=== PATIENT | female | born 1960 | race Caucasian/White ===

== ENCOUNTER → 2016-06-17 | Outpatient (CLI) | payer MEDICAID ==
--- NOTE | 2016-06-17 09:51 | CR ---
EXAMINATION: Left shoulder HISTORY: Pain COMPARISON: 05/14/2013 TECHNIQUE: 3 views FINDINGS/IMPRESSION: There is no acute osseous abnormality, dislocation, or fracture. Bone mineraliz ation appears normal. Mild acromioclavicular osteoarthritic changes are noted.
== END ==
LOC: MW.CHORTHO 07:50
PROVIDERS: ATTEND Orthopaedic Surgery
DX: M25.512 Pain in left shoulder (principal); M19.012 Primary osteoarthritis, left shoulder
CPT/HCPCS: 73030-26-LT; 73030-LT

== ENCOUNTER 2016-06-28 12:26 | Emergency (ER) | payer MEDICAID ==
--- NOTE | 2016-06-28 12:52 | EDM.PDOC ---
ED HPI GENERAL MEDICAL PROBLEM - General Chief Complaint: General Stated Complaint: CRAMPS ALL OVER HER BODY Time Seen by Provider: 06/28/16 12:42 Source of Information: Reports: Patient History Limitations: Reports: No limitations - History of Present Illness INITIAL COMMENTS - FREE TEXT/NARRATIVE: HISTORY AND PHYSICAL: [56-year-old female presenting with 2 days of muscle cramps all over her body except her face History of Present Illness: [at least 2 days of muscle cramping history of hypokalemia] ] Review of Systems: As per history of present illness and below otherwise all systems reviewed and negative. Past medical history: As per history of present illness and as reviewed below otherwise noncontributory. Surgical history: As per history of present illness and as reviewed below otherwise noncontributory. Social history: No reported history of drug or alcohol abuse. Family history: As per history of present illness and as reviewed below otherwise noncontributory. Physical exam:alert & oriented HEENT: Atraumatic, normocehpalic, pupils reactive, negative for conjunctival pallor or scleral icterus, mucous membranes moist, throat clear, neck supple, nontender, trachea midline. Tympanic membranes WNL. Lungs: Clear to auscultation, breath sounds equal bilaterally, chest non tender. Heart: S1S2, regular, negative for clicks, rubs, or JVD. Abdomen: Soft, nondistended, nontender. Negative for masses or hepatossplenmegaly. Negative for costovertebral tenderness. Pelvis: Stable nontender. Genitourinary: Deferred. Rectal: Deferred Extremities: Atraumatic, negative for cords or calf pain. Neurovascular unremarkable. Neuro: Awake, alert, oriented. Cranial nerves II through XII unremarkable. Cerebellum unremarkable. Motor and sensory unremarkable throughout. Exam nonfocal. Diagnostics: [CBC CMP Magnesium all within normal limits] Therapeutics: [Diazepam] Impression: [Muscle Cramps] Plan: [Flexeril 10 mg up to 3 times a day when necessary muscle cramps Followup with primary care provider] Definitive disposition and diagnosis as appropriate pending reevaluation and review of above. Duration: Day(s):, Getting worse Location: Reports: generalized Quality: Reports: Ache Severity: moderate Improves with: Reports: None Worsens with: Reports: Movement Associated Symptoms: Reports: no other symptoms body Pain Score (Numeric/FACES): 6 - Related Data Allergies Allergy/AdvReac Type Severity Reaction Status Date / Time morphine Allergy Hives Verified 06/28/16 12:35 Home Meds: Home Meds amLODIPine Besylate/Benazepril [Lotrel 5-40 MG] 1 tab PO DAILY 05/10/15 [History ] Estazolam 1 mg PO BEDTIME PRN 01/28/16 [History] Fluticasone Propionate 50 mcg SILKE DAILY 01/28/16 [History] Lurasidone HCl [Latuda] 1 tab PO DAILY 01/28/16 [History] Metoprolol Succinate [Toprol XL] 25 mg PO DAILY 01/28/16 [History] PARoxetine HCl [Paroxetine HCl] 1 tab PO BID 01/28/16 [History] Pantoprazole [Protonix] 40 mg PO ACBREAKFAST 01/28/16 [History] Rivaroxaban [Xarelto] 20 mg PO BEDTIME 01/28/16 [History] hydrOXYzine Pamoate [Hydroxyzine Pamoate] 1 tab PO DAILY PRN 01/28/16 [History] traZODone 100 mg PO BEDTIME PRN 01/28/16 [History] Cyclobenzaprine [Flexeril] 10 mg PO TID #30 tablet 06/28/16 [Rx] Past Medical History HEENT History: Reports: None Cardiovascular History: Reports: Afib, Hypertension, Other (see below) Other Cardiovascular History: Left aorta enlargement Psychiatric History: Reports: Depression - Infectious Disease History Infectious Disease History: Reports: MRSA - Past Surgical History HEENT Surgical History: Reports: None GI Surgical History: Reports: Bariatric procedure Musculoskeletal Surgical History: Reports: Hip replacement Other Musculoskeletal Surgeries/Procedures:: hip replacement x4 Social & Family History - Family History Family Medical History: Noncontributory Cardiac: Reports: Heart failure, High cholesterol, Hypertension, [place] Musculoskeletal: Reports: Arthritis, Osteoarthritis Endocrine/Metabolic: Reports: Diabetes, type II - Tobacco Use Smoking Status *Q: Former Smoker Years of Tobacco use: 10 Used Tobacco, but Quit: Yes Month Tobacco Last Used: 2000 Second Hand Smoke Exposure: No - Caffeine Use Caffeine Use: Reports: None - Alcohol Use Days Per Week of Alcohol Use: 0 - Recreational Drug Use Recreational Drug Use: No ED ROS GENERAL - Review of Systems Review Of Systems: ROS reveals no pertinent complaints other than HPI. ED EXAM, GENERAL - Physical Exam Exam: See Below (see dictation) Course - Vital Signs Last Recorded V/S: Last Vital Signs Temp 36.1 C 06/28/16 12:43 Pulse 72 06/28/16 12:43 Resp 16 06/28/16 12:43 BP 165/87 H 06/28/16 12:43 Pulse Ox 99 06/28/16 12:43 - Orders/Labs/Meds Orders: Active Orders 24 hr Category Date Time Status Sodium Chloride 0.9% [Saline Flush] Med 06/28/16 13:03 Active 10 ml FLUSH ASDIRECTED PRN Sodium Chloride 0.9% [Saline Flush] Med 06/28/16 13:03 Active 2.5 ml FLUSH ASDIRECTED PRN Saline Lock Insert [OM.PC] Stat Oth 06/28/16 13:03 Ordered Medication Orders Sodium Chloride (Saline Flush) 10 ml FLUSH ASDIRECTED PRN PRN Reason: Keep Vein Open Sodium Chloride (Saline Flush) 2.5 ml FLUSH ASDIRECTED PRN PRN Reason: Keep Vein Open Labs: Laboratory Tests 06/28/16 06/28/16 Range/Units 13:18 13:18 WBC 6.05 (4.0-11.0) K/uL RBC 4.63 (4.30-5.90) M/uL Hgb 14.3 (12.0-16.0) g/dL Hct 43.6 (36.0-46.0) % MCV 94.2 (80.0-98.0) fL MCH 30.9 (27.0-32.0) pg MCHC 32.8 (31.0-37.0) g/dL RDW Std Deviation 50.5 (28.0-62.0) fl RDW Coeff of Ravi 15 (11.0-15.0) % Plt Count 267 (150-400) K/uL MPV 9.80 (7.40-12.00) fL Neut % (Auto) 59.6 (48.0-80.0) % Lymph % (Auto) 26.8 (16.0-40.0) % Parke % (Auto) 12.1 (0.0-15.0) % Eos % (Auto) 1.2 (0.0-7.0) % Baso % (Auto) 0.3 (0.0-1.5) % Neut # 3.6 (1.4-5.7) K/uL Lymph # 1.6 (0.6-2.4) K/uL Parke # 0.7 (0.0-0.8) K/uL Eos # 0.1 (0.0-0.7) K/uL Baso # 0.0 (0.0-0.1) K/uL Nucleated RBC % 0.0 /100WBC Nucleated RBCs # 0 K/uL Sodium 138 (136-146) mmol/L Potassium 4.4 (3.5-5.1) mmol/L Chloride 104 (98-110) mmol/L Carbon Dioxide 20 L (21-31) mmol/L BUN 18 (6.0-23.0) mg/dL Creatinine 1.0 (0.6-1.5) mg/dL Est Cr Clr Drug Dosing 61.09 mL/min Estimated GFR (MDRD) 57.4 ml/min Glucose 92 (60-110) mg/dL Calcium 9.9 (8.8-10.8) mg/dL Magnesium 1.8 (1.5-2.3) mEq/L Total Bilirubin 0.5 (0.1-1.5) mg/dL AST 26 (5-40) IU/L ALT 42 (8-54) IU/L Alkaline Phosphatase 105 (40-150) Total Protein 8.3 H (6.0-8.0) g/dL Albumin 4.9 (3.5-5.0) g/dL Globulin 3.4 (2.0-3.5) g/dL Albumin/Globulin Ratio 1.4 (1.3-2.8) Meds: Medications Generic Name Dose Route Start Last Admin Trade Name Freq PRN Reason Stop Dose Admin Sodium Chloride 10 ml 06/28/16 13:03 Saline Flush FLUSH ASDIRECTED PRN Keep Vein Open Sodium Chloride 2.5 ml 06/28/16 13:03 Saline Flush FLUSH ASDIRECTED PRN Keep Vein Open Discontinued Medications Generic Name Dose Route Start Last Admin Trade Name Freq PRN Reason Stop Dose Admin Diazepam 2 mg 06/28/16 13:03 Valium PO 06/28/16 13:04 ONETIME ONE Diazepam 5 mg 06/28/16 13:08 06/28/16 13:14 Valium. PO 06/28/16 13:09 5 mg ONETIME ONE Administration Departure - Departure Time of Disposition: 14:05 Disposition: Home, Self-Care 01 Condition: good Clinical Impression: Muscle cramps Prescriptions: Cyclobenzaprine [Flexeril] 10 mg PO TID #30 tablet Forms: ED Department Discharge - My Orders Last 24 Hours: My Active Orders 06/28/16 13:03 Sodium Chloride 0.9% [Saline Flush] 10 ml FLUSH ASDIRECTED PRN Sodium Chloride 0.9% [Saline Flush] 2.5 ml FLUSH ASDIRECTED PRN Saline Lock Insert [OM.PC] Stat - Assessment/Plan Last 24 Hours: My Active Orders 06/28/16 13:03 Sodium Chloride 0.9% [Saline Flush] 10 ml FLUSH ASDIRECTED PRN Sodium Chloride 0.9% [Saline Flush] 2.5 ml FLUSH ASDIRECTED PRN Saline Lock Insert [OM.PC] Stat
[2016-06-28] MEDS ORDERED: Sodium Chloride 0.9% 10 ML Syringe FLUSH PRN (13:03)
[2016-06-28] MEDS ORDERED: Diazepam 2 MG Tab PO ONE (13:03)
[2016-06-28] MEDS ORDERED: Sodium Chloride 0.9% 2.5 ML Syringe FLUSH PRN (13:03)
[2016-06-28] MEDS ORDERED: Diazepam 5 MG Tab PO ONE (13:08)
[2016-06-28 14:16] VITALS: BP 157/89
== END 2016-06-28 14:14 | disposition home or self-care (01) ==
LOC: MW.ED 12:26
DX: R25.2 Cramp and spasm (principal); I48.91 Unspecified atrial fibrillation; I10 Essential (primary) hypertension; F32.9 Major depressive disorder, single episode, unspecified; Z79.899 Other long term (current) drug therapy; Z98.84 Bariatric surgery status; Z88.5 Allergy status to narcotic agent; Z87.891 Personal history of nicotine dependence
CPT/HCPCS: 36415; 80053; 83735; 85025; 99283; A9270

== ENCOUNTER 2016-08-14 11:18 | Emergency (ER) | payer MEDICAID ==
[2016-08-14] MEDS ORDERED: Nitroglycerin 0.4 MG Tab.SL SL PRN (11:26)
[2016-08-14] MEDS ORDERED: Aspirin 81 MG Tab.Chew PO ONE ×2 (11:26→11:27)
[2016-08-14] MEDS ORDERED: Sodium Chloride 0.9% 2.5 ML Syringe FLUSH PRN (11:27)
[2016-08-14] MEDS ORDERED: Sodium Chloride 0.9% 1,000 ML IV ONE (11:27)
[2016-08-14] MEDS ORDERED: Sodium Chloride 0.9% 10 ML Syringe FLUSH PRN (11:27)
[2016-08-14] MEDS ORDERED: Famotidine 20 MG/2 ML SDV IVPUSH ONE (11:27)
--- NOTE | 2016-08-14 11:34 | EDM.PDOC ---
ED HISTORY OF PRESENT ILLNESS - General Chief Complaint: Cardiovascular Problem Stated Complaint: CHEST PAIN Time Seen by Provider: 08/14/16 11:30 Source of Information: Reports: Patient, Old records History Limitations: Reports: No limitations - History of Present Illness INITIAL COMMENTS - FREE TEXT/NARRATIVE: HISTORY AND PHYSICAL: [56-year-old female presenting with left-sided chest pain starting around the breast area extending up towards her neck] History of Present Illness: [Pain started about midnight last night when she was sitting at the table drinking water. She thought it was heartburn. She did take her medications this morning] Patient does see Dr. Ann Review of Systems: As per history of present illness and below otherwise all systems reviewed and negative. Past medical history: As per history of present illness and as reviewed below otherwise noncontributory. Surgical history: As per history of present illness and as reviewed below otherwise noncontributory. Social history: No reported history of drug or alcohol abuse. Family history: As per history of present illness and as reviewed below otherwise noncontributory. Physical exam: Alert woman who is quite anxious breathing rapidly but is able to be redirected and slow her breathing. HEENT: Atraumatic, normocehpalic, pupils reactive, negative for conjunctival pallor or scleral icterus, mucous membranes moist, throat clear, neck supple, nontender, trachea midline. Lungs: Clear to auscultation, breath sounds equal bilaterally, chest non tender. Heart: S1S2, regular, negative for clicks, rubs, or JVD. EKG with normal sinus rhythm 85 beats per minute. Chest pain is reducible with palpation to the left breast area costochondral.Pain extends to left neck. Abdomen: Soft, nondistended, nontender. Negative for masses or hepatossplenmegaly. Negative for costovertebral tenderness.Bowel sounds auscultated Pelvis: Stable nontender. Genitourinary: Deferred. Rectal: Deferred Extremities: Atraumatic, negative for cords or calf pain. No pedal edema. Palpable pulse. Neurovascular unremarkable. Neuro: Awake, alert, oriented. Very anxious/ mild hyperventilation with tingling of fingertips. Cranial nerves II through XII unremarkable. Cerebellum unremarkable. Motor and sensory unremarkable throughout. Exam nonfocal. Discussed case with Dr. Souza local slasher machine operator who is in agreement that this is extremely low risk for CAD. He did recommend patient could be sent home he would followup with her on Wednesday, August 17. Diagnostics: [CBC CMP EKG chest x-ray,troponin] Therapeutics: [Aspirin 324mg, Pepcid IV, Dilaudid 0.5/lorazepam 0.5 by mouth] Impression: [Chest wall pain\ Anxiety] Plan: [Discharge to home have discussed observation with the patient and she is comfortable at this point going home. We'll have her call for an appointment to followup with Dr. Souza] Definitive disposition and diagnosis as appropriate pending reevaluation and review of above. Timing/Duration: Reports: Hour(s): Severity: severe (11/26) - Related Data Allergies/ADRs: Allergies Allergy/AdvReac Type Severity Reaction Status Date / Time morphine Allergy Hives Verified 06/28/16 12:35 Home Meds: Home Meds amLODIPine Besylate/Benazepril [Lotrel 5-40 MG] 1 tab PO DAILY 05/10/15 [History ] Estazolam 1 mg PO BEDTIME PRN 01/28/16 [History] Fluticasone Propionate 50 mcg SILKE DAILY 01/28/16 [History] Lurasidone HCl [Latuda] 1 tab PO DAILY 01/28/16 [History] Metoprolol Succinate [Toprol XL] 25 mg PO DAILY 01/28/16 [History] PARoxetine HCl [Paroxetine HCl] 1 tab PO BID 01/28/16 [History] Pantoprazole [ProTONIX] 40 mg PO ACBREAKFAST 01/28/16 [History] Rivaroxaban [Xarelto] 20 mg PO BEDTIME 01/28/16 [History] hydrOXYzine Pamoate [Hydroxyzine Pamoate] 1 tab PO DAILY PRN 01/28/16 [History] traZODone 100 mg PO BEDTIME PRN 01/28/16 [History] Cyclobenzaprine [Flexeril] 10 mg PO TID #30 tablet 06/28/16 [Rx] Past Medical History HEENT History: Reports: None Cardiovascular History: Reports: Afib, Hypertension, Other (see below) Other Cardiovascular History: Left aorta enlargement Psychiatric History: Reports: Depression - Infectious Disease History Infectious Disease History: Reports: MRSA - Past Surgical History HEENT Surgical History: Reports: None GI Surgical History: Reports: Bariatric procedure Musculoskeletal Surgical History: Reports: Hip replacement Other Musculoskeletal Surgeries/Procedures:: hip replacement x4 Social & Family History - Family History Family Medical History: Noncontributory Cardiac: Reports: Heart failure, High cholesterol, Hypertension, [place] Musculoskeletal: Reports: Arthritis, Osteoarthritis Endocrine/Metabolic: Reports: Diabetes, type II - Tobacco Use Smoking Status *Q: Former Smoker Years of Tobacco use: 10 Used Tobacco, but Quit: Yes Month Tobacco Last Used: 2000 Second Hand Smoke Exposure: No - Caffeine Use Caffeine Use: Reports: None - Alcohol Use Days Per Week of Alcohol Use: 0 - Recreational Drug Use Recreational Drug Use: No ED ROS GENERAL - Review of Systems Review Of Systems: ROS reveals no pertinent complaints other than HPI. ED EXAM, GENERAL - Physical Exam Exam: See Below (See dictation) EKG INTERPRETATION EKG Date: 08/14/16 Rhythm: NSR Rate (beats/min): 85 Gore: normal P-wave: present Course - Vital Signs Last Recorded V/S: Last Vital Signs Temp 36.4 C 08/14/16 11:37 Pulse 79 08/14/16 11:37 Resp 18 08/14/16 11:37 BP 125/83 08/14/16 11:46 Pulse Ox 100 08/14/16 11:37 - Orders/Labs/Meds Orders: Active Orders 24 hr Category Date Time Status Cardiac Monitoring [RC] . DIRECTED Care 08/14/16 11:26 Active Cardiac Monitoring [RC] . DIRECTED Care 08/14/16 11:27 Active EKG Documentation Completion [RC] STAT Care 08/14/16 11:26 Active EKG Documentation Completion [RC] STAT Care 08/14/16 11:27 Inactive Oxygen Therapy, ED [RC] ASDIRECTED Care 08/14/16 11:26 Active Pulse Oximetry [RC] ASDIRECTED Care 08/14/16 11:27 Active Chest 1V Frontal [CR] Stat Exams 08/14/16 11:27 Taken TROPONIN I [CHEM] Stat Lab 08/14/16 11:27 Ordered UA W/MICROSCOPIC [URIN] Stat Lab 08/14/16 11:27 Uncollected Sodium Chloride 0.9% [Saline Flush] Med 08/14/16 11:27 Active 10 ml FLUSH ASDIRECTED PRN Sodium Chloride 0.9% [Saline Flush] Med 08/14/16 11:27 Active 2.5 ml FLUSH ASDIRECTED PRN Peripheral IV Insertion Adult [OM.PC] Stat [facility] 08/14/16 11:27 Ordered Saline Lock Insert [OM.PC] Stat [facility] 08/14/16 11:26 Ordered Saline Lock Insert [OM.PC] Stat [facility] 08/14/16 11:27 Ordered Medication Orders Sodium Chloride (Saline Flush) 10 ml FLUSH ASDIRECTED PRN PRN Reason: Keep Vein Open Sodium Chloride (Saline Flush) 2.5 ml FLUSH ASDIRECTED PRN PRN Reason: Keep Vein Open Labs: Laboratory Tests 08/14/16 08/14/16 08/14/16 Range/Units 11:37 11:37 11:37 WBC 5.47 (4.0-11.0) K/uL RBC 4.19 L (4.30-5.90) M/uL Hgb 13.1 (12.0-16.0) g/dL Hct 39.2 (36.0-46.0) % MCV 93.6 (80.0-98.0) fL MCH 31.3 (27.0-32.0) pg MCHC 33.4 (31.0-37.0) g/dL RDW Std Deviation 50.3 (28.0-62.0) fl RDW Coeff of Ravi 15 (11.0-15.0) % Plt Count 266 (150-400) K/uL MPV 10.00 (7.40-12.00) fL Neut % (Auto) 50.3 (48.0-80.0) % Lymph % (Auto) 38.2 (16.0-40.0) % Ida % (Auto) 9.7 (0.0-15.0) % Eos % (Auto) 1.3 (0.0-7.0) % Baso % (Auto) 0.5 (0.0-1.5) % Neut # (Auto) 2.8 (1.4-5.7) K/uL Lymph # (Auto) 2.1 (0.6-2.4) K/uL Ida # (Auto) 0.5 (0.0-0.8) K/uL Eos # (Auto) 0.1 (0.0-0.7) K/uL Baso # (Auto) 0.0 (0.0-0.1) K/uL Nucleated RBC % 0.0 /100WBC Nucleated RBCs # 0 K/uL INR 1.17 H (0.86-1.11) Sodium 140 (136-146) mmol/L Potassium 4.1 (3.5-5.1) mmol/L Chloride 109 (98-110) mmol/L Carbon Dioxide 18 L (21-31) mmol/L BUN 14 (6.0-23.0) mg/dL Creatinine 1.0 (0.6-1.5) mg/dL Est Cr Clr Drug Dosing TNP Estimated GFR (MDRD) 57.4 ml/min Glucose 104 (60-110) mg/dL Calcium 9.8 (8.8-10.8) mg/dL Total Bilirubin 0.5 (0.1-1.5) mg/dL AST 17 (5-40) IU/L ALT 21 (8-54) IU/L Alkaline Phosphatase 74 (40-150) Troponin I (0.0-0.29) NG/ML Total Protein 6.8 (6.0-8.0) g/dL Albumin 4.3 (3.5-5.0) g/dL Globulin 2.5 (2.0-3.5) g/dL Albumin/Globulin Ratio 1.7 (1.3-2.8) Amylase 75 (10-90) U/L Lipase 21 (7-80) U/L 08/14/16 Range/Units 11:37 WBC (4.0-11.0) K/uL RBC (4.30-5.90) M/uL Hgb (12.0-16.0) g/dL Hct (36.0-46.0) % MCV (80.0-98.0) fL MCH (27.0-32.0) pg MCHC (31.0-37.0) g/dL RDW Std Deviation (28.0-62.0) fl RDW Coeff of Ravi (11.0-15.0) % Plt Count (150-400) K/uL MPV (7.40-12.00) fL Neut % (Auto) (48.0-80.0) % Lymph % (Auto) (16.0-40.0) % Ida % (Auto) (0.0-15.0) % Eos % (Auto) (0.0-7.0) % Baso % (Auto) (0.0-1.5) % Neut # (Auto) (1.4-5.7) K/uL Lymph # (Auto) (0.6-2.4) K/uL Ida # (Auto) (0.0-0.8) K/uL Eos # (Auto) (0.0-0.7) K/uL Baso # (Auto) (0.0-0.1) K/uL Nucleated RBC % /100WBC Nucleated RBCs # K/uL INR (0.86-1.11) Sodium (136-146) mmol/L Potassium (3.5-5.1) mmol/L Chloride (98-110) mmol/L Carbon Dioxide (21-31) mmol/L BUN (6.0-23.0) mg/dL Creatinine (0.6-1.5) mg/dL Est Cr Clr Drug Dosing Estimated GFR (MDRD) ml/min Glucose (60-110) mg/dL Calcium (8.8-10.8) mg/dL Total Bilirubin (0.1-1.5) mg/dL AST (5-40) IU/L ALT (8-54) IU/L Alkaline Phosphatase (40-150) Troponin I < 0.10 (0.0-0.29) NG/ML Total Protein (6.0-8.0) g/dL Albumin (3.5-5.0) g/dL Globulin (2.0-3.5) g/dL Albumin/Globulin Ratio (1.3-2.8) Amylase (10-90) U/L Lipase (7-80) U/L Meds: Medications Generic Name Dose Route Start Last Admin Trade Name Freq PRN Reason Stop Dose Admin Sodium Chloride 10 ml 08/14/16 11:27 Saline Flush FLUSH ASDIRECTED PRN Keep Vein Open Sodium Chloride 2.5 ml 08/14/16 11:27 Saline Flush FLUSH ASDIRECTED PRN Keep Vein Open Discontinued Medications Generic Name Dose Route Start Last Admin Trade Name Freq PRN Reason Stop Dose Admin Aspirin 324 mg 08/14/16 11:26 08/14/16 11:30 Aspirin PO 08/14/16 11:27 324 mg ONETIME ONE Administration Aspirin 324 mg 08/14/16 11:27 08/14/16 11:53 Aspirin PO 08/14/16 11:28 Not Given ONETIME ONE Famotidine 20 mg 08/14/16 11:27 08/14/16 11:47 Pepcid IVPUSH 08/14/16 11:28 20 mg ONETIME ONE Administration Hydromorphone HCl 0.5 mg 08/14/16 11:52 08/14/16 11:56 Dilaudid IM 08/14/16 11:53 0.5 mg ONETIME ONE Administration Sodium Chloride 1,000 mls @ 999 mls/hr 08/14/16 11:27 08/14/16 11:53 Normal Saline IV 08/14/16 12:27 999 mls/hr .Bolus ONE Administration Lorazepam 0.5 mg 08/14/16 12:16 Ativan PO 08/14/16 12:17 ONETIME ONE Nitroglycerin 0.4 mg 08/14/16 11:26 08/14/16 11:46 Nitrostat SL 08/14/16 11:37 0.4 mg Q5M PRN Administration Chest Pain Departure - Departure Time of Disposition: 12:40 Disposition: Home, Self-Care 01 Condition: good Clinical Impression: Chest wall pain, In, Anxiety Forms: ED Department Discharge Additional Instructions: The following information is given to patients seen in the emergency department who are being discharged to home. This information is to outline your options for follow-up care. We provide all patients seen in our emergency department with a follow-up referral. The need for follow-up, as well as the timing and circumstances, are variable depending upon the specifics of your emergency department visit. If you don't have a primary care physician on staff, we will provide you with a referral. We always advise you to contact your personal physician following an emergency department visit to inform them of the circumstance of the visit and for follow-up with them and/or the need for any referrals to a consulting specialist. The emergency department will also refer you to a specialist when appropriate. This referral assures that you have the opportunity for followup care with a specialist. All of these measure are taken in an effort to provide you with optimal care, which includes your followup. Under all circumstances we always encourage you to contact your private physician who remains a resource for coordinating your care. When calling for followup care, please make the office aware that this follow-up is from your recent emergency room visit. If for any reason you are refused follow-up, please contact the [facility] emergency department at and asked to speak to the emergency department charge nurse. Followup with Dr. Ann. please call for appointment Wednesday August 17, 2016 - My Orders Last 24 Hours: My Active Orders 08/14/16 11:26 Cardiac Monitoring [RC] . DIRECTED EKG Documentation Completion [RC] STAT Oxygen Therapy, ED [RC] ASDIRECTED Saline Lock Insert [OM.PC] Stat 08/14/16 11:27 Cardiac Monitoring [RC] . DIRECTED EKG Documentation Completion [RC] STAT Pulse Oximetry [RC] ASDIRECTED Chest 1V Frontal [CR] Stat TROPONIN I [CHEM] Stat UA W/MICROSCOPIC [URIN] Stat Sodium Chloride 0.9% [Saline Flush] 10 ml FLUSH ASDIRECTED PRN Sodium Chloride 0.9% [Saline Flush] 2.5 ml FLUSH ASDIRECTED PRN Peripheral IV Insertion Adult [OM.PC] Stat Saline Lock Insert [OM.PC] Stat - Assessment/Plan Last 24 Hours: My Active Orders 08/14/16 11:26 Cardiac Monitoring [RC] . DIRECTED EKG Documentation Completion [RC] STAT Oxygen Therapy, ED [RC] ASDIRECTED Saline Lock Insert [OM.PC] Stat 08/14/16 11:27 Cardiac Monitoring [RC] . DIRECTED EKG Documentation Completion [RC] STAT Pulse Oximetry [RC] ASDIRECTED Chest 1V Frontal [CR] Stat TROPONIN I [CHEM] Stat UA W/MICROSCOPIC [URIN] Stat Sodium Chloride 0.9% [Saline Flush] 10 ml FLUSH ASDIRECTED PRN Sodium Chloride 0.9% [Saline Flush] 2.5 ml FLUSH ASDIRECTED PRN Peripheral IV Insertion Adult [OM.PC] Stat Saline Lock Insert [OM.PC] Stat
[2016-08-14] MEDS ORDERED: HYDROmorphone 1 MG/ML Syringe IM ONE (11:52)
[2016-08-14 12:13] LABS: CHLORIDE,CL 109 mmol/L (98-110); SODIUM,NA 140 mmol/L (136-146)
[2016-08-14] MEDS ORDERED: LORazepam 0.5 MG Tab PO ONE (12:16)
[2016-08-14] MEDS ORDERED: Acetaminophen 325 MG Tab PO ONE (12:51)
[2016-08-14] MEDS ORDERED: Alum Hydrox/Mag Hydrox/Simeth 15 ML, Lidocaine 2% 5 ML PO ONE ×2 (12:57)
[2016-08-14 13:46] VITALS: BP 105/76
--- NOTE | 2016-08-16 16:47 | CR ---
EXAM DATE: 08/14/16 PATIENT'S AGE: 56 Patient: CARLOS SELF Facility: [place], [place] Site . Site : [id number] Study: XRay Chest [id number]/[id number] 12:30:19 PM Ordering Physician: Doctor Burger Final Report: INDICATION: CHEST PAIN CHEST, ONE VIEW An AP radiograph of the chest was performed. Comparison: No previous studies are currently available for comparison. The lungs appear clear and no pleural effusions are identified. The cardiomediastinal silhouette and pulmonary vasculature appear normal, as do the visualized bones. There is a suggestion of a very small retrocardiac hiatal hernia. IMPRESSION: No acute intrathoracic abnormality identified. MARK ARCEO MD [facility] Dictated by: Maikel Arceo MD @ 08/14/2016 12:47:06 (Electronic Signature) Report Signed by Proxy. MTDD
== END 2016-08-14 13:43 | disposition home or self-care (01) ==
LOC: MW.ED 11:18
DX: R07.9 Chest pain, unspecified (principal); F41.9 Anxiety disorder, unspecified; I48.91 Unspecified atrial fibrillation; I10 Essential (primary) hypertension; Z79.899 Other long term (current) drug therapy; Z87.891 Personal history of nicotine dependence
CPT/HCPCS: 36415; 71010; 80053; 81001; 82150; 83690; 84484; 85025; 85610; 93005; 96361; 96372; 96374; 99285; A9270; J1170; J7040

== ENCOUNTER 2016-08-27 12:43 | Emergency (ER) | payer MEDICAID ==
[2016-08-27] MEDS ORDERED: diphenhydrAMINE 25 MG Cap PO ONE (13:12)
--- NOTE | 2016-08-27 13:13 | EDM.PDOC ---
ED HPI GENERAL MEDICAL PROBLEM - General Chief Complaint: ENT Problem Stated Complaint: SWOLLEN FACE/GLANDS Time Seen by Provider: 08/27/16 12:49 Source of Information: Reports: Patient History Limitations: Reports: No Limitations - History of Present Illness INITIAL COMMENTS - FREE TEXT/NARRATIVE: History of present illness: [] Patient comes in with 3 day history of pain and swelling on the right side of her face. She presented to urgent care 3 days ago with right facial and ear pain. He was diagnosed with an ear infection and has been getting IM antibiotic shots daily for 3 days. She has never had any fevers, redness, difficulty swallowing or shortness of breath. Patient is taking several psych medications including Cymbalta, trazodone and latuda. Review of systems: As per history of present illness and below otherwise all systems reviewed and negative. Past medical history: As per history of present illness and as reviewed below otherwise noncontributory. Surgical history: As per history of present illness and as reviewed below otherwise noncontributory. Social history: No reported history of drug or alcohol abuse. Family history: As per history of present illness and as reviewed below otherwise noncontributory. Physical exam: General: Well developed, well nourished in NAD HEENT: Atraumatic, patient clenches her right side of her jaw shut, pupils reactive, negative for conjunctival pallor or scleral icterus, mucous membranes moist, throat clear, neck supple, nontender, trachea midline. No palpable lymph nodes noted, TMs are clear there is no erythema, purulent drainage behind the TM , and the TM is intact. She is able to open her jaw and move it side to side there does not appear to be any dislocation. Lungs: Clear to auscultation, breath sounds equal bilaterally, chest nontender. Heart: S1S2, regular, negative for clicks, rubs, or JVD. Abdomen: Soft, nondistended, nontender. Negative for masses or hepatosplenomegaly. Negative for costovertebral tenderness. Pelvis: Stable nontender. Genitourinary: Deferred. Rectal: Deferred. Extremities: Atraumatic, negative for cords or calf pain. Neurovascular unremarkable. Neuro: Awake, alert, oriented. Cranial nerves II through XII unremarkable. Cerebellum unremarkable. Motor and sensory unremarkable throughout. Exam nonfocal. Diagnostics: [] Do not see any sign of infection or need to CT her face and sinuses. Therapeutics: [] Patient was given a dose of Benadryl with improvement Impression: [] I believe this is likely a dystonic reaction although mild. She may have had an ear or sinus infection 3 days ago but at this point I do not see any signs of this. She has been aggressively treated and may have responded well. Plan: [] Benadryl every 4 hours as needed. followup with your primary care doctor and or the physician treating you with antibiotics Definitive disposition and diagnosis as appropriate pending reevaluation and review of above. Right Face Pain Score (Numeric/FACES): 8 - Related Data Allergies Allergy/AdvReac Type Severity Reaction Status Date / Time morphine Allergy Hives Verified 08/27/16 12:56 Home Meds: Home Meds Estazolam 2 mg PO BEDTIME PRN 01/28/16 [History] Lurasidone HCl [Latuda] 80 mg PO DAILY 01/28/16 [History] Metoprolol Succinate [Toprol XL] 12.5 mg PO DAILY 01/28/16 [History] Pantoprazole [ProTONIX] 40 mg PO ACBREAKFAST 01/28/16 [History] Rivaroxaban [Xarelto] 20 mg PO BEDTIME 01/28/16 [History] hydrOXYzine Pamoate [Hydroxyzine Pamoate] 25 mg PO DAILY PRN 01/28/16 [History] traZODone 100 mg PO BEDTIME PRN 01/28/16 [History] DULoxetine [Cymbalta] 60 mg PO DAILY 08/14/16 [History] Hydrocodone/Acetaminophen [Hydrocodon-Acetaminophen 5-325] 1 tab PO Q4H PRN [History] LORazepam 0.5 mg PO DAILY PRN 08/14/16 [History] amLODIPine Besylate/Benazepril [Amlodipine-Benazepril 2.5-10] 1 tab PO DAILY [History] Past Medical History HEENT History: Reports: None Cardiovascular History: Reports: Afib, Hypertension Other Cardiovascular History: Left aorta enlargement Psychiatric History: Reports: Depression - Infectious Disease History Infectious Disease History: Reports: Chicken pox, Mumps - Past Surgical History HEENT Surgical History: Reports: None GI Surgical History: Reports: Bariatric procedure Musculoskeletal Surgical History: Reports: Hip replacement Other Musculoskeletal Surgeries/Procedures:: hip replacement, right x 3 and left x 1 Social & Family History - Family History Family Medical History: Noncontributory Cardiac: Reports: Heart failure, High cholesterol, Hypertension, [place] Musculoskeletal: Reports: Arthritis, Osteoarthritis Endocrine/Metabolic: Reports: Diabetes, type II - Tobacco Use Smoking Status *Q: Never Smoker Years of Tobacco use: 10 Used Tobacco, but Quit: Yes Month Tobacco Last Used: 2000 Second Hand Smoke Exposure: No - Caffeine Use Caffeine Use: Reports: Coffee Caffeine Use Comment: 2cups/day - Alcohol Use Days Per Week of Alcohol Use: 0 - Recreational Drug Use Recreational Drug Use: No ED ROS ENT - Review of Systems Review Of Systems: See Below (See history of present illness) ED EXAM, ENT - Physical Exam Exam: See Below (See history of present illness) Course - Vital Signs Last Recorded V/S: Last Vital Signs Temp 36.4 C 08/27/16 12:51 Pulse 85 08/27/16 12:51 Resp 20 08/27/16 12:51 BP 141/66 H 08/27/16 12:51 Pulse Ox 98 08/27/16 12:51 - Orders/Labs/Meds Meds: Medications Discontinued Medications Generic Name Dose Route Start Last Admin Trade Name Freq PRN Reason Stop Dose Admin Diphenhydramine HCl 25 mg 08/27/16 13:12 08/27/16 13:17 Benadryl PO 08/27/16 13:13 25 mg ONETIME ONE Administration Departure - Departure Time of Disposition: 14:00 Disposition: Home, Self-Care 01 Condition: good Clinical Impression: Dystonic drug reaction - Discharge Information Forms: ED Department Discharge Additional Instructions: The following information is given to patients seen in the emergency department who are being discharged to home. This information is to outline your options for follow-up care. We provide all patients seen in our emergency department with a follow-up referral. The need for follow-up, as well as the timing and circumstances, are variable depending upon the specifics of your emergency department visit. If you don't have a primary care physician on staff, we will provide you with a referral. We always advise you to contact your personal physician following an emergency department visit to inform them of the circumstance of the visit and for follow-up with them and/or the need for any referrals to a consulting specialist. The emergency department will also refer you to a specialist when appropriate. This referral assures that you have the opportunity for follow-up care with a specialist. All of these measure are taken in an effort to provide you with optimal care, which includes your follow-up. Under all circumstances we always encourage you to contact your private physician who remains a resource for coordinating your care. When calling for follow-up care, please make the office aware that this follow-up is from your recent emergency room visit. If for any reason you are refused follow-up, please contact the [facility] Emergency Department at and asked to speak to the emergency department charge nurse. Jeffry as needed Followup with primary care [facility] [place] [id number]
[2016-08-27 14:11] VITALS: BP 112/77
== END 2016-08-27 14:08 | disposition home or self-care (01) ==
LOC: MW.ED 12:43
DX: G24.09 Other drug induced dystonia (principal); I48.91 Unspecified atrial fibrillation; I10 Essential (primary) hypertension; F32.9 Major depressive disorder, single episode, unspecified; Z88.5 Allergy status to narcotic agent; Z79.899 Other long term (current) drug therapy; Z98.84 Bariatric surgery status; Z96.643 Presence of artificial hip joint, bilateral
CPT/HCPCS: 99282; A9270

== ENCOUNTER 2016-10-05 07:39 | Emergency (ER) | payer MEDICAID ==
[2016-10-05] MEDS ORDERED: Ketorolac 60 MG/2 ML SDV IM ONE (08:02)
--- NOTE | 2016-10-05 08:07 | EDM.PDOC ---
ED HPI GENERAL MEDICAL PROBLEM - General Chief Complaint: ENT Problem Stated Complaint: JAW PAIN Time Seen by Provider: 10/05/16 07:55 - History of Present Illness INITIAL COMMENTS - FREE TEXT/NARRATIVE: HISTORY AND PHYSICAL: History of present illness: The patient is a 56-year-old female with several medical problems including A. fib for which she takes Xarelto and who follows in our clinic and presents with complains of a one-week history of pain at her right jaw area and difficulty opening her mouth secondary to the pain so that she can chew. Patient denies any trauma to the area and has not noted any swelling of her face. She does have slight ear pain on the right but does not have any sore throat fever chills cough chest pain shortness of breath. She says the pain has come on gradually and that she is having difficulty opening her mouth and feels like something is not aligned properly. She says she is not eating normally because there is discomfort with chewing and she is losing weight because of that. She has not contacted her provider in the clinic discussed these issues. She has no tooth pain tongue pain or gum swelling that she has noted. She denies any hoarse voice and has no anterior neck pain. She's not tried anything for the pain. The patient states the pain is not worse when she wakes up and she doesn't recall that she clenches her teeth when she sleeps. Review of systems: As per history of present illness and below otherwise all systems reviewed and negative. Past medical history: As per history of present illness and as reviewed below otherwise noncontributory. Surgical history: As per history of present illness and as reviewed below otherwise noncontributory. Social history: No reported history of drug or alcohol abuse. Family history: As per history of present illness and as reviewed below otherwise noncontributory. Physical exam: Gen.: Well-developed well-nourished female who speaks clearly and easily and vital signs of the note by me. There is no visible evidence of any facial swelling on the right HEENT: Atraumatic, normocephalic, negative for conjunctival pallor or scleral icterus, mucous membranes moist, throat clear, neck supple, nontender, trachea midline. There is no cervical adenopathy or nuchal rigidity. There is no bony deformities tenderness or defects of the mandible or maxilla and the TMJs bilaterally appear to be in normal alignment. The patient is able to open her mouth but does have slight trismus secondary to discomfort. Intraorally there is no evidence of any soft tissue swelling/mucosal swelling no tooth discomfort and no palpable deformities. Upon palpation of the cheek and the senior research project manager area she does have discomfort in both intraorally and externally. TMs are dulled bilaterally Lungs: Clear to auscultation, breath sounds equal bilaterally, chest nontender. Heart: S1S2, regular rate and rhythm no overt murmurs Abdomen: Soft, nondistended, nontender. NABS Genitourinary: Deferred. Rectal: Deferred. Extremities: Atraumatic, negative for cords or calf pain. Neurovascular unremarkable. Neuro: Awake, alert, oriented. Cranial nerves II through XII unremarkable. Cerebellum unremarkable. Motor and sensory unremarkable throughout. Exam nonfocal. Diagnostics: Facial bone x-rays Therapeutics: Toradol I discussed with the patient that we be severely limited in evaluating discomfort and it was likely muscular or joint etiology. We will go ahead and do x-rays to assess the bony architecture and the TMJ joint and refer her back to primary care for further evaluation. I discussed x-ray findings with the patient and I have gotten her an appointment expedited in the clinic for later today at 3:[address] Floyd as I am limited here in the ED to evaluate and treat this problem. Impression: Right jaw/TMJ pain Definitive disposition and diagnosis as appropriate pending reevaluation and review of above. Right Face Pain Score (Numeric/FACES): 8 - Related Data Allergies Allergy/AdvReac Type Severity Reaction Status Date / Time morphine Allergy Hives Verified 08/27/16 12:56 Home Meds: Home Meds Estazolam 2 mg PO BEDTIME PRN 01/28/16 [History] Lurasidone HCl [Latuda] 80 mg PO DAILY 01/28/16 [History] Metoprolol Succinate [Toprol XL] 12.5 mg PO DAILY 01/28/16 [History] Pantoprazole [ProTONIX] 40 mg PO ACBREAKFAST 01/28/16 [History] Rivaroxaban [Xarelto] 20 mg PO WITHDINNER 01/28/16 [History] hydrOXYzine Pamoate [Hydroxyzine Pamoate] 25 mg PO BID PRN 01/28/16 [History] traZODone 100 mg PO BEDTIME PRN 01/28/16 [History] DULoxetine [Cymbalta] 60 mg PO DAILY 08/14/16 [History] LORazepam 0.5 mg PO BID PRN 08/14/16 [History] amLODIPine Besylate/Benazepril [Amlodipine-Benazepril 2.5-10] 1 tab PO DAILY [History] Fluticasone Propionate [Flonase] 1 - 2 spray NASBOTH DAILY 08/27/16 [History] Past Medical History HEENT History: Reports: None Cardiovascular History: Reports: Afib, Hypertension Other Cardiovascular History: Left aorta enlargement Psychiatric History: Reports: Depression - Infectious Disease History Infectious Disease History: Reports: Chicken Pox, Mumps - Past Surgical History HEENT Surgical History: Reports: None GI Surgical History: Reports: Bariatric Procedure Musculoskeletal Surgical History: Reports: Hip Replacement Social & Family History - Family History Family Medical History: Noncontributory Cardiac: Reports: Heart Failure, High Cholesterol, Hypertension, [place] Musculoskeletal: Reports: Arthritis, Osteoarthritis Endocrine/Metabolic: Reports: Diabetes, type II - Tobacco Use Smoking Status *Q: Never Smoker Years of Tobacco use: 10 Used Tobacco, but Quit: Yes Month Tobacco Last Used: 2000 Second Hand Smoke Exposure: No - Caffeine Use Caffeine Use: Reports: Coffee Caffeine Use Comment: 2cups/day - Alcohol Use Days Per Week of Alcohol Use: 0 - Recreational Drug Use Recreational Drug Use: No ED ROS GENERAL - Review of Systems Review Of Systems: ROS reveals no pertinent complaints other than HPI. ED EXAM, GENERAL - Physical Exam Exam: See Below (See dictation) Course - Vital Signs Last Recorded V/S: Last Vital Signs Temp 36.6 C 10/05/16 07:48 Pulse 77 10/05/16 07:48 Resp 18 10/05/16 07:48 BP 132/77 10/05/16 07:48 Pulse Ox 98 10/05/16 07:48 - Orders/Labs/Meds Meds: Medications Discontinued Medications Generic Name Dose Route Start Last Admin Trade Name Freq PRN Reason Stop Dose Admin Ketorolac Tromethamine 60 mg 10/05/16 08:02 10/05/16 08:10 Toradol IM 10/05/16 08:03 60 mg ONETIME ONE Administration Departure - Departure Time of Disposition: 08:57 Disposition: Home, Self-Care 01 Condition: Good Clinical Impression: Temporomandibular joint (TMJ) pain Qualifiers: Laterality: right Qualified Code(s): M26.621 - Arthralgia of right temporomandibular joint - Discharge Information Forms: ED Department Discharge Additional Instructions: The following information is given to patients seen in the emergency department who are being discharged to home. This information is to outline your options for follow-up care. We provide all patients seen in our emergency department with a follow-up referral. The need for follow-up, as well as the timing and circumstances, are variable depending upon the specifics of your emergency department visit. If you don't have a primary care physician on staff, we will provide you with a referral. We always advise you to contact your personal physician following an emergency department visit to inform them of the circumstance of the visit and for follow-up with them and/or the need for any referrals to a consulting specialist. The emergency department will also refer you to a specialist when appropriate. This referral assures that you have the opportunity for followup care with a specialist. All of these measure are taken in an effort to provide you with optimal care, which includes your followup. Under all circumstances we always encourage you to contact your private physician who remains a resource for coordinating your care. When calling for followup care, please make the office aware that this follow-up is from your recent emergency room visit. If for any reason you are refused follow-up, please contact the [facility] emergency department at and ask to speak to the emergency department charge nurse. [facility] Primary care- Internal Medicine and Family [address] [address] Please go to the clinic to see Dr. Floyd today at 3:30 PM for further care and evaluation. Use ice to area of discomfort into your seen. Return to ER as needed as discussed
--- NOTE | 2016-10-05 08:46 | CR ---
EXAMINATION: Facial bones HISTORY: Pain COMPARISON: None TECHNIQUE: 3 views FINDINGS/IMPRESSION: There is no acute osseous abnormality, dislocation, or fracture identified. Bon e mineralization and visualized facial bones appear grossly intact. The maxillary and frontal sinuse s appear patent.
[2016-10-05 09:10] VITALS: BP 130/70
== END 2016-10-05 09:00 | disposition home or self-care (01) ==
LOC: MW.ED 07:39
DX: M26.621 Arthralgia of right temporomandibular joint (principal); I10 Essential (primary) hypertension; I48.91 Unspecified atrial fibrillation; F32.9 Major depressive disorder, single episode, unspecified; Z96.649 Presence of unspecified artificial hip joint; Z87.891 Personal history of nicotine dependence; Z98.84 Bariatric surgery status; Z79.899 Other long term (current) drug therapy; Z88.5 Allergy status to narcotic agent
CPT/HCPCS: 70150; 96372; 99283; J1885; 99284

== ENCOUNTER 2018-07-19 09:25 | Emergency (ER) | payer MEDICAID ==
--- NOTE | 2018-07-19 09:37 | EDM.PDOC ---
ED HPI GENERAL MEDICAL PROBLEM - General Chief Complaint: Respiratory Problem Stated Complaint: COUGH Time Seen by Provider: 07/19/18 09:27 Source of Information: Reports: Patient History Limitations: Reports: No Limitations - History of Present Illness INITIAL COMMENTS - FREE TEXT/NARRATIVE: History of present illness: []Patient has had a week of cough, congestion and this morning coughed and felt pain and something pop in her right ear. She denies any blood coming from her ear canal. She does not feel short of breath, nausea, vomiting or diarrhea. Review of systems: As per history of present illness and below otherwise all systems reviewed and negative. Past medical history: As per history of present illness and as reviewed below otherwise noncontributory. Surgical history: As per history of present illness and as reviewed below otherwise noncontributory. Social history: No reported history of drug or alcohol abuse. Family history: As per history of present illness and as reviewed below otherwise noncontributory. Physical exam: General: Well developed, well nourished in NAD HEENT: Atraumatic, normocephalic, pupils reactive, negative for conjunctival pallor or scleral icterus, mucous membranes moist, throat clear, neck supple, nontender, trachea midline. Right TM with 2 blebs noted, erythematous left TM normal Lungs: Clear to auscultation, breath sounds equal bilaterally, chest nontender. Heart: S1S2, regular, negative for clicks, rubs, or JVD. Abdomen: NABS, Soft, nondistended, nontender. Negative for masses or hepatosplenomegaly. Negative for costovertebral tenderness. Pelvis: Stable nontender. Genitourinary: Deferred. Rectal: Deferred. Extremities: Atraumatic, negative for cords or calf pain. Neurovascular unremarkable. Neuro: Awake, alert, oriented. Cranial nerves II through XII unremarkable. Cerebellum unremarkable. Motor and sensory unremarkable throughout. Exam nonfocal. Skin:warm and dry Diagnostics: None Therapeutics: None ED Course: Stable Impression: URI with cough, right bullous myringitis Prescriptions: Amoxicillin, Robitussin with codeine Plan: Take meds as directed, follow up with your primary care physician, return to ER if symptoms worsen or change. Definitive disposition and diagnosis as appropriate pending reevaluation and review of above. throat and pain when coughing Pain Score (Numeric/FACES): 6 - Related Data Allergies Allergy/AdvReac Type Severity Reaction Status Date / Time morphine Allergy Hives Verified 07/19/18 09:33 Home Meds: Home Meds Estazolam 2 mg PO BEDTIME PRN 01/28/16 [History] Lurasidone HCl [Latuda] 80 mg PO DAILY 01/28/16 [History] Metoprolol Succinate [Toprol XL] 12.5 mg PO DAILY 01/28/16 [History] Pantoprazole [ProTONIX] 40 mg PO ACBREAKFAST 01/28/16 [History] Rivaroxaban [Xarelto] 20 mg PO WITHDINNER 01/28/16 [History] hydrOXYzine pamoate [Hydroxyzine Pamoate] 25 mg PO BID PRN 01/28/16 [History] traZODone 100 mg PO BEDTIME PRN 01/28/16 [History] DULoxetine [Cymbalta] 60 mg PO DAILY 08/14/16 [History] LORazepam 0.5 mg PO BID PRN 08/14/16 [History] amLODIPine Besylate/Benazepril [Amlodipine-Benazepril 2.5-10] 1 tab PO DAILY [History] Fluticasone Propionate [Flonase] 1 - 2 spray NASBOTH DAILY 08/27/16 [History] Amoxicillin 875 mg PO BID 10 Days #20 tab 07/19/18 [Rx] Codeine/guaiFENesin [Robitussin AC] 5 ml PO Q6H #50 ml 07/19/18 [Rx] Past Medical History HEENT History: Reports: None Cardiovascular History: Reports: Afib, Hypertension Other Cardiovascular History: Left aorta enlargement Psychiatric History: Reports: Depression - Infectious Disease History Infectious Disease History: Reports: Chicken Pox, Mumps - Past Surgical History HEENT Surgical History: Reports: None GI Surgical History: Reports: Bariatric Procedure Musculoskeletal Surgical History: Reports: Hip Replacement Social & Family History - Family History Family Medical History: Noncontributory Cardiac: Reports: Heart Failure, High Cholesterol, Hypertension, [place] Musculoskeletal: Reports: Arthritis, Osteoarthritis Endocrine/Metabolic: Reports: Diabetes, type II - Caffeine Use Caffeine Use: Reports: Coffee Caffeine Use Comment: 2cups/day ED ROS GENERAL - Review of Systems Review Of Systems: ROS reveals no pertinent complaints other than HPI. ED EXAM, GENERAL - Physical Exam Exam: See Below (See history of present illness) Course - Vital Signs Last Recorded V/S: Last Vital Signs Temp 97.3 F 07/19/18 09:34 Pulse 80 07/19/18 09:34 Resp 18 07/19/18 09:34 BP 143/76 H 07/19/18 09:34 Pulse Ox 98 07/19/18 09:34 Departure - Departure Time of Disposition: 09:44 Disposition: Home, Self-Care 01 Condition: Good Clinical Impression: Bullous myringitis of right ear, URI with cough and congestion - Discharge Information *PRESCRIPTION DRUG MONITORING PROGRAM REVIEWED*: No *COPY OF PRESCRIPTION DRUG MONITORING REPORT IN PATIENT DEYANIRA: No Prescriptions: Amoxicillin 875 mg PO BID 10 Days #20 tab Codeine/guaiFENesin [Robitussin AC] 5 ml PO Q6H #50 ml Referrals: PCP,Unknown [Primary Care Provider] - Forms: ED Department Discharge Additional Instructions: The following information is given to patients seen in the emergency department who are being discharged to home. This information is to outline your options for follow-up care. We provide all patients seen in our emergency department with a follow-up referral. The need for follow-up, as well as the timing and circumstances, are variable depending upon the specifics of your emergency department visit. If you don't have a primary care physician on staff, we will provide you with a referral. We always advise you to contact your personal physician following an emergency department visit to inform them of the circumstance of the visit and for follow-up with them and/or the need for any referrals to a consulting specialist. The emergency department will also refer you to a specialist when appropriate. This referral assures that you have the opportunity for follow-up care with a specialist. All of these measure are taken in an effort to provide you with optimal care, which includes your follow-up. Under all circumstances we always encourage you to contact your private physician who remains a resource for coordinating your care. When calling for follow-up care, please make the office aware that this follow-up is from your recent emergency room visit. If for any reason you are refused follow-up, please contact the [facility] Emergency Department at and asked to speak to the emergency department charge nurse. Take meds as directed, follow up with your primary care physician, return to ER if symptoms worsen or change. [facility] [address] [place] [phone]
[2018-07-19 10:21] VITALS: BP 138/73
== END 2018-07-19 10:18 | disposition home or self-care (01) ==
LOC: MW.ED 09:25
DX: J06.9 Acute upper respiratory infection, unspecified (principal); H73.011 Bullous myringitis, right ear; I10 Essential (primary) hypertension; I48.91 Unspecified atrial fibrillation; F32.9 Major depressive disorder, single episode, unspecified; Z79.899 Other long term (current) drug therapy; Z88.5 Allergy status to narcotic agent
CPT/HCPCS: 99283

== ENCOUNTER 2019-09-28 09:25 | Emergency (ER) | payer MEDICAID ==
[2019-09-28] MEDS ORDERED: fentaNYL 50 MCG/ML SDV IVPUSH ONE ×2 (10:00→11:32)
--- NOTE | 2019-09-28 10:12 | EDM.PDOC ---
ED HPI GENERAL MEDICAL PROBLEM - General Chief Complaint: Lower Extremity Injury/Pain Stated Complaint: POSSIBLE BLOOD CLOT Time Seen by Provider: 09/28/19 09:30 Source of Information: Reports: Patient History Limitations: Reports: No Limitations - History of Present Illness INITIAL COMMENTS - FREE TEXT/NARRATIVE: 59-year-old female with history of atrial fibrillation, left hip replacement, left lower extremity DVT, HTN presents with atraumatic left ANTERIOR leg pain for worsening 2 weeks. Pain is described as a dull ache, constant, mild, and is exacerbated by hip flexion. She says the pain radiates from her left groin to her left anterior tib/fib. She denies trauma, fever, chills, chest pain, shortness breath, abdominal pain. She is currently taking Xarelto. She has not taken any medications for this symptom for 2 weeks. ROS: A 10-point review of systems, other than pertinent positives and negatives as stated per HPI, is otherwise negative PHYSICAL EXAM General: AOx4, GCS = 15, No distress HEENT: dry mucous membrane Neck: supple, no meningismus, no Kernig or Brudzinski Cardiac: S1S2 RRR Respiratory: CTAB, no crackles or rales, no wheezing Abdomen: Soft, nontender, no rebound or guarding, nondistended, no pulsatile mass. Back: nontender Musculoskeletal: NVI distally, no deformity, DP +2 bilaterally. Mild tenderness to left posterior thigh, no tenderness to the calf, thigh/calf anterior and posterior compartments are soft. No pain with ankle range of motion. Reproducible pain at the left groin with hip flexion. Neuro: No focal deficits. MEDICAL DECISION MAKING: I reviewed the patients past medical records, lab and radiographic findings. I discussed the case with family members. My differential diagnosis included: Muscle strain, neuropathy, low suspicion for DVT, low suspicion for compartment syndrome. Patient pain is maximal in the left hip region, she describes the pain radiates to the anterior thigh. left leg Pain Score (Numeric/FACES): 9 - Related Data Allergies Allergy/AdvReac Type Severity Reaction Status Date / Time morphine Allergy Hives Verified 09/28/19 09:42 Home Meds: Home Meds Estazolam 2 mg PO BEDTIME PRN 01/28/16 [History] Metoprolol Succinate [Toprol XL] 12.5 mg PO DAILY 01/28/16 [History] Pantoprazole [ProTONIX] 40 mg PO ACBREAKFAST 01/28/16 [History] Rivaroxaban [Xarelto] 20 mg PO WITHDINNER 01/28/16 [History] hydrOXYzine pamoate [Hydroxyzine Pamoate] 25 mg PO BID PRN 01/28/16 [History] traZODone 100 mg PO BEDTIME PRN 01/28/16 [History] DULoxetine [Cymbalta] 60 mg PO DAILY 08/14/16 [History] LORazepam 0.5 mg PO BID PRN 08/14/16 [History] amLODIPine Besylate/Benazepril [Amlodipine-Benazepril 2.5-10] 1 tab PO DAILY [History] Fluticasone Propionate [Flonase] 1 - 2 spray NASBOTH DAILY 08/27/16 [History] Albuterol [Ventolin HFA] 2 puff INH Q4HR PRN #1 inhaler 07/19/18 [Rx] Past Medical History HEENT History: Reports: None Cardiovascular History: Reports: Afib, Hypertension Other Cardiovascular History: Left aorta enlargement Respiratory History: Reports: None Gastrointestinal History: Reports: None Genitourinary History: Reports: None 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 Musculoskeletal History: Reports: None Neurological History: Reports: None Psychiatric History: Reports: Depression Endocrine/Metabolic History: Reports: None Hematologic History: Reports: None Immunologic History: Reports: None Oncologic (Cancer) History: Reports: None Dermatologic History: Reports: None - Infectious Disease History Infectious Disease History: Reports: None - Past Surgical History Head Surgeries/Procedures: Reports: None HEENT Surgical History: Reports: None Respiratory Surgical History: Reports: None GI Surgical History: Reports: Bariatric Procedure Female Surgical History: Reports: None Endocrine Surgical History: Reports: None Neurological Surgical History: Reports: None Musculoskeletal Surgical History: Reports: Hip Replacement Oncologic Surgical History: Reports: None Dermatological Surgical History: Reports: None Social & Family History - Family History Family Medical History: Noncontributory Cardiac: Reports: Heart Failure, High Cholesterol, Hypertension, [place] Musculoskeletal: Reports: Arthritis, Osteoarthritis Endocrine/Metabolic: Reports: Diabetes, type II - Tobacco Use Smoking Status *Q: Never Smoker Second Hand Smoke Exposure: No - Caffeine Use Caffeine Use: Reports: Coffee Caffeine Use Comment: 2cups/day - Recreational Drug Use Recreational Drug Use: No Review of Systems - Review of Systems Review Of Systems: See Below (see dictation) ED EXAM, GENERAL - Physical Exam Exam: See Below (see dictation) Course - Vital Signs Last Recorded V/S: Last Vital Signs Temp 96.1 F L 09/28/19 09:40 Pulse 67 09/28/19 09:40 Resp 16 09/28/19 09:40 BP 146/83 H 09/28/19 09:40 Pulse Ox 95 09/28/19 09:40 - Orders/Labs/Meds Labs: Laboratory Tests 09/28/19 09/28/19 09/28/19 Range/Units 09:56 09:56 09:56 WBC 4.31 (4.0-11.0) K/uL RBC 3.69 L (4.30-5.90) M/uL Hgb 10.7 L (12.0-16.0) g/dL Hct 34.2 L (36.0-46.0) % MCV 92.7 (80.0-98.0) fL MCH 29.0 (27.0-32.0) pg MCHC 31.3 (31.0-37.0) g/dL RDW Std Deviation 50.4 (28.0-62.0) fl RDW Coeff of Ravi 15 (11.0-15.0) % Plt Count 248 (150-400) K/uL MPV 9.70 (7.40-12.00) fL Neut % (Auto) 55.7 (48.0-80.0) % Lymph % (Auto) 31.8 (16.0-40.0) % [place] % (Auto) 9.5 (0.0-15.0) % Eos % (Auto) 2.3 (0.0-7.0) % Baso % (Auto) 0.7 (0.0-1.5) % Neut # (Auto) 2.4 (1.4-5.7) K/uL Lymph # (Auto) 1.4 (0.6-2.4) K/uL [place] # (Auto) 0.4 (0.0-0.8) K/uL Eos # (Auto) 0.1 (0.0-0.7) K/uL Baso # (Auto) 0.0 (0.0-0.1) K/uL Nucleated RBC % 0.0 /100WBC Nucleated RBCs # 0 K/uL INR 1.23 Sodium 140 (136-145) mmol/L Potassium 4.4 (3.5-5.1) mmol/L Chloride 106 (98-107) mmol/L Carbon Dioxide 24.1 (21.0-32.0) mmol/L BUN 22 H (7.0-18.0) mg/dL Creatinine 1.1 H (0.6-1.0) mg/dL Est Cr Clr Drug Dosing 53.55 mL/min Estimated GFR (MDRD) 50.8 ml/min Glucose 92 (74-106) mg/dL Calcium 8.8 (8.5-10.1) mg/dL Total Bilirubin 0.3 (0.2-1.0) mg/dL AST 22 (15-37) IU/L ALT 26 (14-63) IU/L Alkaline Phosphatase 108 (46-116) U/L Total Protein 6.7 (6.4-8.2) g/dL Albumin 4.0 (3.4-5.0) g/dL Globulin 2.7 (2.6-4.0) g/dL Albumin/Globulin Ratio 1.5 (0.9-1.6) Meds: Medications Discontinued Medications Generic Name Dose Route Start Last Admin Trade Name Freq PRN Reason Stop Dose Admin Fentanyl 25 mcg 09/28/19 10:00 09/28/19 10:08 Fentanyl IVPUSH 09/28/19 10:01 25 mcg ONETIME ONE Administration Fentanyl 25 mcg 09/28/19 11:32 09/28/19 11:43 Fentanyl IVPUSH 09/28/19 11:33 25 mcg ONETIME ONE Administration - Re-Assessments/Exams Free Text/Narrative Re-Assessment/Exam: 09/28/19 11:49 After treatments and a prolonged observation period in the ER, the patient improved clinically and is stable for discharge. I performed a repeat examination and the patient has not demonstrated any new abnormal findings. Patient exhibits normal vital signs. I advised the patient to return to the ER for reevaluation if symptoms worsened, and to follow up with the clinic within 2 -3 days. Departure - Departure Time of Disposition: 11:53 Disposition: Home, Self-Care 01 Condition: Good Clinical Impression: Quadriceps strain - Discharge Information *PRESCRIPTION DRUG MONITORING PROGRAM REVIEWED*: Not Applicable *COPY OF PRESCRIPTION DRUG MONITORING REPORT IN PATIENT DEYANIRA: Not Applicable Instructions: Quadriceps Strain, How to Use Cold Therapy, [id number] Referrals: Perez Woo [Ordering Only Provider] - 1 Week Forms: ED Department Discharge Additional Instructions: The following information is given to patients seen in the emergency department who are being discharged to home. This information is to outline your options for follow-up care. We provide all patients seen in our emergency department with a follow-up referral. The need for follow-up, as well as the timing and circumstances, are variable depending upon the specifics of your emergency department visit. If you don't have a primary care physician on staff, we will provide you with a referral. We always advise you to contact your personal physician following an emergency department visit to inform them of the circumstance of the visit and for follow-up with them and/or the need for any referrals to a consulting specialist. The emergency department will also refer you to a specialist when appropriate. This referral assures that you have the opportunity for follow-up care with a specialist. All of these measure are taken in an effort to provide you with optimal care, which includes your follow-up. Under all circumstances we always encourage you to contact your private physician who remains a resource for coordinating your care. When calling for follow-up care, please make the office aware that this follow-up is from your recent emergency room visit. If for any reason you are refused follow-up, please contact the [facility] Emergency Department at and asked to speak to the emergency department charge nurse. If you do not have a primary care doctor, please follow up with the clinics below within 3-5 days. Br[facility] - Primary Care [address] [place] [id number] [facility] [address] [place] [address] Rehab Services Rehabilitation Services at [facility] (Physical Therapy, Occupational Therapy, Speech Therapy) Professional Building [address] [place] [address], [address] [place] [address] . Sepsis Event Note (ED) - Evaluation Sepsis Screening Result: No Definite Risk - Focused Exam Vital Signs: Vital Signs Temp Pulse Resp BP Pulse Ox 09/28/19 09:40 96.1 F L 67 16 146/83 H 95
[2019-09-28 10:29] LABS: CARBON DIOXIDE,CO2 24.1 mmol/L (21.0-32.0); POTASSIUM,K 4.4 mmol/L (3.5-5.1)
--- NOTE | 2019-09-28 10:49 | US ---
Left lower extremity deep venous ultrasound: Duplex and color Doppler evaluation was obtained of the left common femoral, superficial femoral, popliteal, posterior tibial and peroneal veins. Comparison: No prior venous imaging. Findings: Normal compression and Doppler blood flow is seen. Impression: 1. No evidence of deep venous thrombosis within the left lower extremity. Diagnostic code #1 This report was dictated in MDT
--- NOTE | 2019-09-28 11:42 | CR ---
Left hip: AP and frog leg lateral views left hip were obtained. Comparison: Prior AP pelvis study of 01/14/14. Findings: Left hip prosthesis is seen. Components are aligned. No underlying fracture or other bony abnormality is seen. Impression: 1. Stable appearing left hip prosthesis. 2. Nothing acute is seen on 2 view left hip exam. Diagnostic code #2 This report was dictated in MDT
[2019-09-28 13:15] VITALS: BP 118/73; PULSE 53
== END 2019-09-28 12:20 | disposition home or self-care (01) ==
LOC: MW.ED 09:25
DX: S76.112A Strain of left quadriceps muscle, fascia and tendon, initial encounter (principal); I48.91 Unspecified atrial fibrillation; I10 Essential (primary) hypertension; Z88.5 Allergy status to narcotic agent; Z79.899 Other long term (current) drug therapy; Z79.01 Long term (current) use of anticoagulants; X58.XXXA Exposure to other specified factors, initial encounter
CPT/HCPCS: 36415; 73502; 80053; 85025; 85610; 93971; 96374; 96376; 99283; J3010

== ENCOUNTER 2020-04-04 11:46 | Emergency (ER) | payer MEDICAID ==
[2020-04-04] MEDS ORDERED: Sodium Chloride 0.9% 2.5 ML Syringe FLUSH PRN (11:59)
[2020-04-04] MEDS ORDERED: Sodium Chloride 0.9% 10 ML Syringe FLUSH PRN (11:59)
[2020-04-04] MEDS ORDERED: Ondansetron 4 MG/2 ML SDV IVPUSH ONE (12:01)
[2020-04-04] MEDS ORDERED: Acetaminophen 500 MG Tab PO ONE (12:09)
[2020-04-04 12:44] LABS: CARBON DIOXIDE,CO2 24.5 mmol/L (21.0-32.0); POTASSIUM,K 3.4 mmol/L (3.5-5.1)
[2020-04-04] MEDS ORDERED: Sodium Chloride 0.9% 1,000 ML IV ONE (13:19)
--- NOTE | 2020-04-04 13:20 | EDM.PDOC ---
ED HPI GENERAL MEDICAL PROBLEM - General Chief Complaint: Neurological Problem Stated Complaint: VERTIGO Time Seen by Provider: 04/04/20 11:52 - History of Present Illness INITIAL COMMENTS - FREE TEXT/NARRATIVE: History of present illness: [] The patient was having her usual day including going to work. At work she developed a sudden onset of a headache in the frontal area that was sharp and stabbing. There is rapidly associated with ataxia and dizziness with true rotational vertigo and the feeling like she would pass out. She has blurry vision since this happened. She is almost felt like she paths would pass out had to sit down twice since I am. Nauseated. She has been feeling normal before this. She has a history of atrial fibrillation and is on Xarelto. Review of systems: As per history of present illness and below otherwise all systems reviewed and negative. Past medical history: As per history of present illness and as reviewed below otherwise noncontributory. Surgical history: As per history of present illness and as reviewed below otherwise noncontributory. Social history: No reported history of drug or alcohol abuse. Family history: As per history of present illness and as reviewed below otherwise noncontributory. Physical exam: Constitutional - well developed, well-nourished and in no acute distress HEENT - normocephalic, no evidence of trauma - external nose and mouth normal - no mass in neck and no JVD - mucosae moist EYES - full EOM, PERRL, no icterus - no evidence of inflammation, injection, or drainage visual muhammad intact by 1 punctation. Respiratory - no respiratory distress, equal bilateral expansion, lungs clear to auscultation and no abnormal lung sounds Cardiovascular - Regular Rhythm with S1 and S2 appreciated and no murmur, gallop or rub. GI - abdomen soft without distension or organomegaly - normal bowel sounds - no guard or rebound Musculoskeletal no gross deformity of long bones or joints - no tenderness, swelling or edema Neurologic -I General customary neurologic exam is normal fast exam is negative. Alert and oriented times four - CN II-XII grossly intact - motor sensory and coordination symmetrically normal Psychiatric - appropriate mood and affect with normal thought content Hematologic - No petechiae or purpura - mucosa appropriate color and sclera not pale - normal nail bed color and refill Integument - no rash or evidence of trauma - normal turgor Diagnostics: [] Therapeutics: [] Impression: Torrential diagnosis includes subarachnoid hemorrhage. [] Plan: [] Definitive disposition and diagnosis as appropriate pending reevaluation and review of above. Headache Pain Score (Numeric/FACES): 6 - Related Data Allergies Allergy/AdvReac Type Severity Reaction Status Date / Time morphine Allergy Hives Verified 04/04/20 11:49 Home Meds: Home Meds Estazolam 2 mg PO BEDTIME PRN 01/28/16 [History] Metoprolol Succinate [Toprol XL] 12.5 mg PO DAILY 01/28/16 [History] Pantoprazole [ProTONIX] 40 mg PO ACBREAKFAST 01/28/16 [History] Rivaroxaban [Xarelto] 20 mg PO WITHDINNER 01/28/16 [History] hydrOXYzine pamoate [Hydroxyzine Pamoate] 25 mg PO BID PRN 01/28/16 [History] traZODone 100 mg PO BEDTIME PRN 01/28/16 [History] DULoxetine [Cymbalta] 60 mg PO DAILY 08/14/16 [History] LORazepam 0.5 mg PO BID PRN 08/14/16 [History] amLODIPine Besylate/Benazepril [Amlodipine-Benazepril 2.5-10] 1 tab PO DAILY 08/14/16 [History] Fluticasone Propionate [Flonase] 1 - 2 spray NASBOTH DAILY 08/27/16 [History] Albuterol [Ventolin HFA] 2 puff INH Q4HR PRN #1 inhaler 07/19/18 [Rx] Acetaminophen/HYDROcodone [[place] 325-7.5 MG] 1 tab PO Q6H PRN #14 tab 04/04/20 [Rx] Amoxicillin/Clavulanate K [Augmentin 875-125 MG] 1 tab PO Q12HR #20 tab 04/04/20 [Rx] Past Medical History HEENT History: Reports: None Cardiovascular History: Reports: Afib, Hypertension Other Cardiovascular History: Left aorta enlargement Respiratory History: Reports: None Gastrointestinal History: Reports: None Genitourinary History: Reports: None 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 Musculoskeletal History: Reports: None Neurological History: Reports: None Psychiatric History: Reports: Depression Endocrine/Metabolic History: Reports: None Hematologic History: Reports: None Immunologic History: Reports: None Oncologic (Cancer) History: Reports: None Dermatologic History: Reports: None - Infectious Disease History Infectious Disease History: Reports: None - Past Surgical History Head Surgeries/Procedures: Reports: None HEENT Surgical History: Reports: None Respiratory Surgical History: Reports: None GI Surgical History: Reports: Bariatric Procedure Female Surgical History: Reports: None Endocrine Surgical History: Reports: None Neurological Surgical History: Reports: None Musculoskeletal Surgical History: Reports: Hip Replacement Other Musculoskeletal Surgeries/Procedures:: hip replacement, right x 3 and left x 1 Oncologic Surgical History: Reports: None Dermatological Surgical History: Reports: None Social & Family History - Family History Family Medical History: No Pertinent Family History Cardiac: Reports: Heart Failure, High Cholesterol, Hypertension, [place] Musculoskeletal: Reports: Arthritis, Osteoarthritis Endocrine/Metabolic: Reports: Diabetes, type II - Tobacco Use Tobacco Use Status *Q: Never Tobacco User - Caffeine Use Caffeine Use: Reports: None Caffeine Use Comment: 2cups/day ED ROS GENERAL - Review of Systems Review Of Systems: Comprehensive ROS is negative, except as noted in HPI. ED EXAM, GENERAL - Physical Exam Exam: See Below Free Text/Narrative:: My physical exam is in the HPI. #1 Interpretation EKG Interpretation Comments: EKG performed at 11:52 AM 04/04/2020 and interpreted at noon. Sinus rhythm with a heart rate of 60. [place] 189. QT 2 0. [place] -34. Nonspecific rest abnormality compatible with left ventricular hypertrophy. Compared to 08/14/2016 no change impression no acute injury Course - Vital Signs Text/Narrative:: Interpretation of the CT is that there is no acute intracranial hemorrhage. Blood pressure and BUN and creatinine measurements indicate that she is profoundly volume depleted. This may explain her symptoms. Fluids ordered. Last Recorded V/S: Last Vital Signs Temp 36.4 C 04/04/20 11:49 Pulse 58 L 04/04/20 16:00 Resp 14 04/04/20 16:00 BP 129/71 04/04/20 16:00 Pulse Ox 98 04/04/20 16:00 - Orders/Labs/Meds Orders: Active Orders 24 hr Category Date Time Status Saline Lock Insert [OM.PC] Stat Oth 04/04/20 11:59 Ordered Labs: Laboratory Tests 04/04/20 04/04/20 04/04/20 Range/Units 11:39 11:59 11:59 WBC 5.40 (4.0-11.0) K/uL RBC 3.67 L (4.30-5.90) M/uL Hgb 11.0 L (12.0-16.0) g/dL Hct 34.1 L (36.0-46.0) % MCV 92.9 (80.0-98.0) fL MCH 30.0 (27.0-32.0) pg MCHC 32.3 (31.0-37.0) g/dL RDW Std Deviation 48.0 (28.0-62.0) fl RDW Coeff of Ravi 14 (11.0-15.0) % Plt Count 251 (150-400) K/uL MPV 10.20 (7.40-12.00) fL Neut % (Auto) 58.0 (48.0-80.0) % Lymph % (Auto) 31.9 (16.0-40.0) % [place] % (Auto) 8.3 (0.0-15.0) % Eos % (Auto) 1.1 (0.0-7.0) % Baso % (Auto) 0.7 (0.0-1.5) % Neut # (Auto) 3.1 (1.4-5.7) K/uL Lymph # (Auto) 1.7 (0.6-2.4) K/uL [place] # (Auto) 0.5 (0.0-0.8) K/uL Eos # (Auto) 0.1 (0.0-0.7) K/uL Baso # (Auto) 0.0 (0.0-0.1) K/uL Nucleated RBC % 0.0 /100WBC Nucleated RBCs # 0 K/uL INR 1.22 Sodium 140 (136-145) mmol/L Potassium 3.4 L (3.5-5.1) mmol/L Chloride 103 (98-107) mmol/L Carbon Dioxide 24.5 (21.0-32.0) mmol/L BUN 36 H (7.0-18.0) mg/dL Creatinine 1.9 H (0.6-1.0) mg/dL Est Cr Clr Drug Dosing 29.48 mL/min Estimated GFR (MDRD) 27.0 ml/min Glucose 89 (74-106) mg/dL POC Glucose (60-110) mg/dL Calcium 8.8 (8.5-10.1) mg/dL Total Bilirubin 0.4 (0.2-1.0) mg/dL AST 18 (15-37) IU/L ALT 30 (14-63) IU/L Alkaline Phosphatase 110 (46-116) U/L Total Protein 7.1 (6.4-8.2) g/dL Albumin 4.2 (3.4-5.0) g/dL Globulin 2.9 (2.6-4.0) g/dL Albumin/Globulin Ratio 1.4 (0.9-1.6) 04/04/20 Range/Units 12:02 WBC (4.0-11.0) K/uL RBC (4.30-5.90) M/uL Hgb (12.0-16.0) g/dL Hct (36.0-46.0) % MCV (80.0-98.0) fL MCH (27.0-32.0) pg MCHC (31.0-37.0) g/dL RDW Std Deviation (28.0-62.0) fl RDW Coeff of Ravi (11.0-15.0) % Plt Count (150-400) K/uL MPV (7.40-12.00) fL Neut % (Auto) (48.0-80.0) % Lymph % (Auto) (16.0-40.0) % [place] % (Auto) (0.0-15.0) % Eos % (Auto) (0.0-7.0) % Baso % (Auto) (0.0-1.5) % Neut # (Auto) (1.4-5.7) K/uL Lymph # (Auto) (0.6-2.4) K/uL [place] # (Auto) (0.0-0.8) K/uL Eos # (Auto) (0.0-0.7) K/uL Baso # (Auto) (0.0-0.1) K/uL Nucleated RBC % /100WBC Nucleated RBCs # K/uL INR Sodium (136-145) mmol/L Potassium (3.5-5.1) mmol/L Chloride (98-107) mmol/L Carbon Dioxide (21.0-32.0) mmol/L BUN (7.0-18.0) mg/dL Creatinine (0.6-1.0) mg/dL Est Cr Clr Drug Dosing mL/min Estimated GFR (MDRD) ml/min Glucose (74-106) mg/dL POC Glucose 92 (60-110) mg/dL Calcium (8.5-10.1) mg/dL Total Bilirubin (0.2-1.0) mg/dL AST (15-37) IU/L ALT (14-63) IU/L Alkaline Phosphatase (46-116) U/L Total Protein (6.4-8.2) g/dL Albumin (3.4-5.0) g/dL Globulin (2.6-4.0) g/dL Albumin/Globulin Ratio (0.9-1.6) Meds: Medications Discontinued Medications Generic Name Dose Route Start Last Admin Trade Name Freq PRN Reason Stop Dose Admin Acetaminophen 1,000 mg 04/04/20 12:09 04/04/20 12:13 Tylenol Extra Strength PO 04/04/20 12:10 1,000 mg ONETIME ONE Administration Hydrocodone Bitart/Acetaminophen 1 tab 04/04/20 14:00 04/04/20 14:06 [place] 325-7.5 Mg PO 04/04/20 14:01 1 tab STAT STA Administration Amoxicillin/Clavulanate Potassium 1 tab 04/04/20 14:01 04/04/20 14:06 Augmentin 875 Mg/125 Mg PO 04/04/20 14:02 1 tab ONETIME ONE Administration Sodium Chloride 1,000 mls @ 999 mls/hr 04/04/20 13:19 04/04/20 13:34 Normal Saline IV 04/04/20 14:19 999 mls/hr .Bolus ONE Administration Ondansetron HCl 4 mg 04/04/20 12:01 04/04/20 12:08 Zofran IVPUSH 04/04/20 12:02 4 mg ONETIME ONE Administration Sodium Chloride 10 ml 04/04/20 11:59 04/04/20 12:08 Saline Flush FLUSH 10 ml ASDIRECTED PRN Administration Keep Vein Open Sodium Chloride 2.5 ml 04/04/20 11:59 04/04/20 12:08 Saline Flush FLUSH 2.5 ml ASDIRECTED PRN Administration Keep Vein Open Departure - Departure Time of Disposition: 15:30 Disposition: Home, Self-Care 01 Condition: Good Clinical Impression: Frontal sinusitis, Dehydration - Discharge Information Prescriptions: Amoxicillin/Clavulanate K [Augmentin 875-125 MG] 1 tab PO Q12HR #20 tab Acetaminophen/HYDROcodone [[place] 325-7.5 MG] 1 tab PO Q6H PRN #14 tab PRN Reason: Pain (Severe 7-10) Instructions: Sinusitis, Adult, Dehydration, Adult, [id number] Referrals: PCP,None [Primary Care Provider] - Forms: ED Department Discharge Additional Instructions: [facility] - Primary Care [address] [place] [address] [id number] [address] [facility] - Neurology Professional [facility] [address] [place] [address], [address] [place] [address] The following information is given to patients seen in the emergency department who are being discharged to home. This information is to outline your options for follow-up care. We provide all patients seen in our emergency department with a follow-up referral. The need for follow-up, as well as the timing and circumstances, are variable depending upon the specifics of your emergency department visit. If you don't have a primary care physician on staff, we will provide you with a referral. We always advise you to contact your personal physician following an emergency department visit to inform them of the circumstance of the visit and for follow-up with them and/or the need for any referrals to a consulting specialist. The emergency department will also refer you to a specialist when appropriate. This referral assures that you have the opportunity for follow-up care with a specialist. All of these measure are taken in an effort to provide you with optimal care, which includes your follow-up. Under all circumstances we always encourage you to contact your private physician who remains a resource for coordinating your care. When calling for follow-up care, please make the office aware that this follow-up is from your recent emergency room visit. If for any reason you are refused follow-up, please contact the [facility] Emergency Department at and asked to speak to the emergency department charge nurse. Sepsis Event Note (ED) - Evaluation Sepsis Screening Result: No Definite Risk - Focused Exam Vital Signs: Vital Signs Temp Pulse Resp BP Pulse Ox 04/04/20 16:00 58 L 14 129/71 98 04/04/20 14:07 62 16 115/64 97 04/04/20 13:35 56 L 16 110/66 97 04/04/20 11:49 36.4 C 71 16 112/64 97 - My Orders Last 24 Hours: My Active Orders 04/04/20 11:59 Saline Lock Insert [OM.PC] Stat - Assessment/Plan Last 24 Hours: My Active Orders 04/04/20 11:59 Saline Lock Insert [OM.PC] Stat
--- NOTE | 2020-04-04 13:35 | CT ---
INDICATION: Anticoagulated with sudden headache and blurry vision. COMPARISON: December 02, 2012 TECHNIQUE: CT examination of the head was performed as axial sections without intravenous contrast. Images were obtained from the vertex of the skull through the skull base. Please note that all CT scans at this facility use dose modulation, iterative reconstruction, and/or weight-based dosing when appropriate to reduce radiation dose to as low as reasonably achievable. FINDINGS: The brain shows no sign of mass lesion, mass effect, hemorrhage, or edema. There are involutional changes. There is moderate cortical atrophy and there is mild white matter disease. There is no hydrocephalus. Incidental chronic appearing sinus mucosal inflammatory changes. The visualized portions of the orbits are normal in appearance. The osseous structures are normal in appearance with no sign of abnormality in the skull base or calvarium. IMPRESSION: Involutional changes. No acute finding. No visible hemorrhage as questioned clinically. Please note that all CT scans at this facility use dose modulation, iterative reconstruction, and/or weight-based dosing when appropriate to reduce radiation dose to as low as reasonably achievable. Dictated by Nixon Tripathi MD @ Apr 04 2020 1:29PM Signed by Dr. Nixon Tripathi @ Apr 04 2020 1:34PM
[2020-04-04] MEDS ORDERED: Acetaminophen/HYDROcodone 325-7.5 MG Tab PO STA (14:00)
[2020-04-04] MEDS ORDERED: Amoxicillin/Clavulanate K 875-125 MG Tab PO ONE (14:01)
[2020-04-04 16:57] VITALS: BP 129/71; PULSE 58
== END 2020-04-04 16:00 | disposition home or self-care (01) ==
LOC: MW.ED 11:46
DX: J32.1 Chronic frontal sinusitis (principal); E86.0 Dehydration; I48.91 Unspecified atrial fibrillation; I10 Essential (primary) hypertension; F32.9 Major depressive disorder, single episode, unspecified; Z88.5 Allergy status to narcotic agent; Z79.899 Other long term (current) drug therapy; Z79.01 Long term (current) use of anticoagulants
CPT/HCPCS: 36415; 70450; 80053; 82962; 85025; 85610; 93005; 96374; 99284; A9270; J2405; J7030

== ENCOUNTER 2020-07-30 12:16 | Day surgery (SDC) | payer OTHER ==
[~2020-07-30 12:16] MED LIST: Lactated Ringers 1,000 ML IV SCH; Sodium Chloride 0.9% 10 ML SDV IV PRN; Sodium Chloride 0.9% 10 ML Syringe FLUSH PRN; Sodium Chloride 0.9% 2.5 ML Syringe FLUSH PRN
--- NOTE | 2020-07-30 12:55 | PCM.PREANE ---
Preanesthetic Assessment - Anesthesia/Transfusion/Family Hx Anesthesia History: Prior Anesthesia Without Reaction Family History of Anesthesia Reaction: No Transfusion History: No Prior Transfusion(s) - Review of Systems General: No Symptoms Pulmonary: No Symptoms Cardiovascular: No Symptoms Gastrointestinal: No Symptoms Neurological: No Symptoms Other: Reports: None - Physical Assessment NPO Status Date: 07/30/20 NPO Status Time: 00:05 Vital Signs: Last Vital Signs Temp 97.7 F 07/30/20 12:25 Pulse 62 07/30/20 12:25 Resp 15 07/30/20 12:25 BP 174/88 H 07/30/20 12:25 Pulse Ox 94 L 07/30/20 12:25 Height: 5 ft 7 in Weight: 210 lb ASA Class: 3 Mental Status: Alert & Oriented x3 Airway Class: Mallampati = 2 Dentition: Reports: Normal Dentition ROM/Head Extension: Limited/Partial Lungs: Clear to Auscultation, Normal Respiratory Effort Cardiovascular: Regular Rate, Regular Rhythm - Allergies Allergies/Adverse Reactions: Allergies Allergy/AdvReac Type Severity Reaction Status Date / Time morphine Allergy Itching Verified 07/24/20 15:30 - Anesthesia Plan Pre-Op Medication Ordered: None - Acknowledgements Anesthesia Type Planned: General Anesthesia Pt an Appropriate Candidate for the Planned Anesthesia: Yes Alternatives and Risks of Anesthesia Discussed w Pt/Guardian: Yes Pt/Guardian Understands and Agrees with Anesthesia Plan: Yes Additional Comments: npo hx afib on xarelto - last dose july 27 no mi, cp, chf anxiety depresion azael htn hayfever bipolar controlled obesity dvt many years ago X 1 head aches chronic pain no narcotics par no questions PreAnesthesia Questionnaire HEENT History: Reports: None Cardiovascular History: Reports: Afib, Hypertension Other Cardiovascular History: Left aorta enlargement Respiratory History: Reports: None Gastrointestinal History: Reports: None Genitourinary History: Reports: None Other Genitourinary History: stage III CKD [employer]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: Reports: None Musculoskeletal History: Reports: None Neurological History: Reports: None Psychiatric History: Reports: Depression Endocrine/Metabolic History: Reports: None Hematologic History: Reports: None Immunologic History: Reports: None Other Immunologic History: hx MRSA Oncologic (Cancer) History: Reports: None Dermatologic History: Reports: None - Infectious Disease History Infectious Disease History: Reports: None - Past Surgical History GI Surgical History: Reports: Bariatric Procedure Musculoskeletal Surgical History: Reports: Hip Replacement Other Musculoskeletal Surgeries/Procedures:: hip replacement, right x 3 and left x 1 - SUBSTANCE USE Tobacco Use Status *Q: Former Tobacco User Tobacco Use Within Last Twelve Months: No - HOME MEDS Home Medications: Home Meds Estazolam 2 mg PO BEDTIME PRN 01/28/16 [History] Metoprolol Succinate [Toprol XL] 12.5 mg PO DAILY 01/28/16 [History] Pantoprazole [ProTONIX] 40 mg PO ACBREAKFAST 01/28/16 [History] Rivaroxaban [Xarelto] 20 mg PO WITHDINNER 01/28/16 [History] hydrOXYzine pamoate [Hydroxyzine Pamoate] 1 - 2 tab PO DAILY PRN 01/28/16 [History] traZODone 1.5 - 2 tab PO BEDTIME 01/28/16 [History] LORazepam 0.5 mg PO DAILY PRN 08/14/16 [History] ARIPiprazole [Abilify] 15 mg PO DAILY 07/24/20 [History] Desvenlafaxine Succinate [Desvenlafaxine Succinate ER] 100 mg PO DAILY 07/24/20 [History] Famotidine 20 mg PO BID 07/24/20 [History] Montelukast Sodium 10 mg PO DAILY 07/24/20 [History] Torsemide 10 mg PO DAILY 07/24/20 [History] busPIRone HCl [Buspirone HCl] 30 mg PO BID 07/24/20 [History] lamoTRIgine [Lamotrigine] 150 mg PO DAILY 07/24/20 [History] valACYclovir HCl [valACYclovir] 2 tab PO ASDIRECTED PRN 07/24/20 [History] - CURRENT (IN HOUSE) MEDS Current Meds: Current Medications Lactated Ringer's (Ringers, Lactated) 1,000 mls @ 125 mls/hr IV ASDIRECTED [place] Sodium Chloride (Sodium Chloride 0.9% 10 Ml Syringe) 10 ml FLUSH ASDIRECTED PRN PRN Reason: Keep Vein Open Sodium Chloride (Sodium Chloride 0.9% 2.5 Ml Syringe) 2.5 ml FLUSH ASDIRECTED PRN PRN Reason: Keep Vein Open Sodium Chloride (Sodium Chloride 0.9% 10 Ml Syringe) 10 ml FLUSH ASDIRECTED PRN PRN Reason: Keep Vein Open Sodium Chloride (Sodium Chloride 0.9% 2.5 Ml Syringe) 2.5 ml FLUSH ASDIRECTED PRN PRN Reason: Keep Vein Open Sodium Chloride (Sodium Chloride 0.9% 10 Ml Sdv) 10 ml IV ASDIRECTED PRN PRN Reason: IV Use
[2020-07-30] MEDS ORDERED: Propofol 200 MG/20 ML SDV ONE (13:18)
[2020-07-30] MEDS ORDERED: Midazolam 1 MG/ML 2 ML SDV ONE (13:59)
[2020-07-30] MEDS ORDERED: fentaNYL 100 MCG/2 ML SDV ONE (13:59)
--- NOTE | 2020-07-30 15:29 | PCM.POSTAN ---
POST ANESTHESIA ASSESSMENT - MENTAL STATUS Mental Status: Alert, Oriented - VITAL SIGNS Vital Signs: Last Vital Signs Temp 36.5 C 07/30/20 12:25 Pulse 55 L 07/30/20 15:22 Resp 14 07/30/20 15:22 BP 106/53 L 07/30/20 15:22 Pulse Ox 95 07/30/20 15:22 - RESPIRATORY Respiratory Status: Respiratory Rate WNL, Airway Patent, O2 Saturation Stable - CARDIOVASCULAR CV Status: Pulse Rate WNL, Blood Pressure Stable - GASTROINTESTINAL GI Status: No Symptoms - PAIN Pain Score: 0 (Denies pain) - POST OP HYDRATION Hydration Status: Adequate & Stable
[2020-07-30 15:35] VITALS: BP 114/68; PULSE 61
--- NOTE | 2020-07-30 15:38 | PCM.OPNOTE ---
- General Post-Op/Procedure Note Date of Surgery/Procedure: 07/30/20 Operative Procedure(s): Screening colonoscopy Findings: rectal polyp Pre Op Diagnosis: Screening colonoscopy Post-Op Diagnosis: rectal polyp Anesthesia Technique: MAC Primary Surgeon: Ana Valentine Condition: Good Free Text/Narrative:: Intake & Output 07/30/20 07/30/20 07/30/20 06:59 14:59 22:59 Intake Total 600 Balance 600
--- NOTE | 2020-07-30 15:40 | PCM48HPAN ---
Post Anesthesia Note - EVALUATION WITHIN 48HRS OF ANESTHETIC Vital Signs in Normal Range: Yes Patient Participated in Evaluation: Yes Respiratory Function Stable: Yes Airway Patent: Yes Cardiovascular Function Stable: Yes Hydration Status Stable: Yes Pain Control Satisfactory: Yes (Denies pain) Nausea and Vomiting Control Satisfactory: Yes Mental Status Recovered: Yes Vital Signs: Last Vital Signs Temp 35.7 C L 07/30/20 15:27 Pulse 61 07/30/20 15:27 Resp 15 07/30/20 15:27 BP 114/68 07/30/20 15:27 Pulse Ox 97 07/30/20 15:27
--- NOTE | 2020-07-31 19:52 | OR ---
SURGEON: ANA VALENTINE MD DATE OF PROCEDURE: 07/30/2020 PREOPERATIVE DIAGNOSIS: Screening colonoscopy. POSTOPERATIVE DIAGNOSIS: Rectal polyp. PROCEDURE PERFORMED: Screening colonoscopy with polypectomy. PRIMARY SURGEON: Ana Valentine MD ANESTHESIA: MAC. INSTRUMENT USED: Olympus colonoscope. EXTENT OF EXAM: To the cecum. PREPARATION: Good. LIMITATIONS: None. INDICATIONS FOR EXAMINATION: The patient is a 60-year-old female who presents for a screening colonoscopy. I explained the procedure, expected perioperative course, and the risks. The patient verbalized understanding and wishes to proceed. PROCEDURE IN DETAIL: The patient was brought to the endoscopy suite and placed in the left lateral decubitus position. A time-out was completed verifying the patient's name, age, date of , allergies, and procedure to be performed. Monitored anesthesia care was induced and continuous oxygen was provided via nasal cannula throughout the procedure. After adequate sedation was achieved, a digital rectal exam was performed. This exam was within normal limits. A well-lubricated colonoscope was inserted in the rectum and advanced under direct visualization to the level of the cecum. The cecum was identified by both visual and anatomic landmarks. A photograph was taken of the cecal cap; however, I was unable to retroflex the scope within the cecum due to looping of the scope more proximally. The scope was then fully withdrawn while examining the color, texture, anatomy, and integrity of mucosa from the cecum to the anal canal. The colonic mucosa all appeared normal. The scope was then brought into the rectum and retroflexed to allow visualization of the anal canal opening. A small sessile polyp was noted upon retroflexion. This was removed in piecemeal fashion using a cold biopsy forceps and sent to Pathology, labeled as rectal polyp. The scope was then straightened out and fully withdrawn. The cecum to anus time was 11 minutes. The patient tolerated the procedure well and was transferred to the PACU in stable condition. ENDOSCOPIC DIAGNOSIS: Rectal polyp. RECOMMENDATIONS: Follow up in clinic in 2 weeks. LIZA STILES /[id number]
== END 2020-07-30 15:45 | disposition home or self-care (01) ==
LOC: MW.SDS 12:16
PROVIDERS: ATTEND Surgery
DX: D12.8 Benign neoplasm of rectum (principal); I12.9 Hypertensive chronic kidney disease with stage 1 through stage 4 chronic kidney disease, or unspecified chronic kidney disease; N18.30 Chronic kidney disease, stage 3 unspecified; D63.1 Anemia in chronic kidney disease; I48.91 Unspecified atrial fibrillation; K21.9 Gastro-esophageal reflux disease without esophagitis; E66.9 Obesity, unspecified; Z68.33 Body mass index [BMI] 33.0-33.9, adult; Z88.8 Allergy status to other drugs, medicaments and biological substances; Z79.899 Other long term (current) drug therapy; Z87.891 Personal history of nicotine dependence; Z98.890 Other specified postprocedural states
CPT/HCPCS: 45380; 88305; J2250; J2704; J3010; J7120; 00812

== ENCOUNTER 2020-08-02 19:02 | Inpatient (IN) | payer OTHER ==
[2020-08-02] MEDS ORDERED: Sodium Chloride 0.9% 2.5 ML Syringe FLUSH PRN (19:13)
[2020-08-02] MEDS ORDERED: Sodium Chloride 0.9% 1,000 ML IV ONE (19:13)
[2020-08-02] MEDS ORDERED: Sodium Chloride 0.9% 10 ML Syringe FLUSH PRN (19:13)
[2020-08-02] MEDS ORDERED: Diltiazem 100 MG in Sodium Chloride 0.9% 100 ML IV SCH (19:15)
[2020-08-02] MEDS ORDERED: Diltiazem 25 MG/5 ML SDV IVPUSH ONE (19:15)
--- NOTE | 2020-08-02 19:22 | EDM.PDOC ---
ED HPI GENERAL MEDICAL PROBLEM - General Chief Complaint: Cardiovascular Problem Stated Complaint: POSSIBLE AFIB Time Seen by Provider: 08/02/20 19:09 - History of Present Illness INITIAL COMMENTS - FREE TEXT/NARRATIVE: HISTORY AND PHYSICAL: History of present illness: This is a 6-year-old female with a history significant for atrial fibrillation, negative hypertension/diabetes/liver/lung/ID/stroke in the past who presents ER today secondary to palpitations and discomfort in her chest that started approximately 1-1 and half hours prior to arrival. Patient reports that it felt like her atrial fibrillation had kicked in again. Patient reports that she is currently on Xarelto as well as metoprolol and she has been religiously taking it for her atrial fibrillation. Patient reports that she does have a history of DVT in the distant past. Patient reports that she does have a recently diagnosed history of renal dysfunction that is currently being evaluated and worked up by her primary care physician. Patient denies any recent fevers, shakes, chills, nausea, vomiting, diarrhea, dysuria, frequency, urgency. Patient reports that she did have some shortness of breath and diaphoresis associated with it. Patient reports that she feels palpitations in her chest with some pressure sensation as well. Patient denies any pain rating down her jaw back or throat. She reports rhinorrhea but no cough or congestion. Patient has no coronavirus concerns at this time. Review of systems: As per history of present illness and below otherwise all systems reviewed and negative. Past medical history: As per history of present illness and as reviewed below otherwise noncontributory. Surgical history: As per history of present illness and as reviewed below otherwise noncontributory. Social history: No reported history of drug or alcohol abuse. Family history: As per history of present illness and as reviewed below otherwise noncontributory. Physical exam: This patient was seen and evaluated during the 2019 SARS-CoV-2 novel coronavirus pandemic period. Community viral transmission is ongoing at time of this encounter and the emergency department is operating under pandemic response procedures. Constitutional: Patient is oriented to person, place, and time. Appears well- developed and well-nourished. No distress. HEENT: Moist mucous membranes Head: Normocephalic and atraumatic Eyes: Right eye exhibits no discharge. Left eye exhibits no discharge. No scleral icterus Neck: Normal range of motion. No tracheal deviation present. Cardiovascular: Tachycardic with irregularly irregular rhythm. Pulmonary: Effort normal, no respiratory distress. Abdominal: No distention Musculoskeletal: Normal range of motion Neurologic: Alert and oriented to person, place and time. Skin: [place], skin is cool and clammy Psychiatric: Normal mood and affect. Behavior is normal. Judgment and thought content normal. Nursing note and vital signs have been reviewed Diagnostics: CBC, CMP, troponin, magnesium, phosphorus, TSH, EKG, chest x-ray EKG: As interpreted by ER physician: Nakita: Nonspecific ST-T wave abnormalities Normal axis LVH criteria by aVL greater than 11 mm. Patient with poor R wave progression in V1 through V4 consistent with possible age-indeterminate anterior septal wall infarct does not appear to be acute Versus counterclockwise rotation. No evidence of ST elevation ID Atrial fibrillation with RVR at a rate of 142 Therapeutics: Diltiazem bolus 20 mg IV Diltiazem drip at 5mg/h NSS x1 L wide open Assessment and plan: This is a 60-year-old female with history significant for atrial fibrillation who appears to have converted back into atrial fibrillation with RVR approximately 1 to 1-1/2 hours prior to arrival to the ED. At this time, patient is clinically and hemodynamically stable. Patient systolic blood pressure is 115. Definitive disposition and diagnosis as appropriate pending reevaluation and review of above. Patient will be started on a Cardizem bolus and Cardizem drip and will be reevaluated. Patient will likely need admission for rate control. Case discussed with Dr. Alvarado who agrees with plan to admit patient to ICU while patient is on the Cardizem drip. Patient will be admitted to observation level of care. Critical Care: The high probability of sudden, clinically significant deterioration in the patient's condition required the highest level of my preparedness to intervene urgently. The services I provided to this patient were to treat and/or prevent clinically significant deterioration. Services included the following: chart data review, reviewing nursing notes and/or old charts, documentation time, diet consultant collaboration regarding findings and treatment options, medication orders and management, direct patient care, vital sign assessments and ordering, interpreting and reviewing diagnostic studies/lab tests. Aggregate critical care time includes only time during which I was engaged inwork directly related to the patient's care, as described above, whether at the bedside or elsewhere in the Emergency Department. It did not include time spent performing other reported procedures or the services of residents, students, nurses or physician assistants. Critical Care Time: 35 minutes Chest Pain Score (Numeric/FACES): 4 - Related Data Allergies Allergy/AdvReac Type Severity Reaction Status Date / Time clindamycin Allergy Other Verified 08/02/20 19:45 morphine Allergy Itching Verified 08/02/20 19:10 Home Meds: Home Meds Estazolam 2 mg PO BEDTIME PRN 01/28/16 [History] Metoprolol Succinate [Toprol XL] 12.5 mg PO DAILY 01/28/16 [History] Pantoprazole [ProTONIX] 40 mg PO ACBREAKFAST 01/28/16 [History] Rivaroxaban [Xarelto] 20 mg PO WITHDINNER 01/28/16 [History] hydrOXYzine pamoate [Hydroxyzine Pamoate] 1 - 2 tab PO DAILY PRN 01/28/16 [History] traZODone 1.5 - 2 tab PO BEDTIME 01/28/16 [History] LORazepam 0.5 mg PO DAILY PRN 08/14/16 [History] ARIPiprazole [Abilify] 15 mg PO DAILY 07/24/20 [History] Desvenlafaxine Succinate [Desvenlafaxine Succinate ER] 100 mg PO DAILY 07/24/20 [History] Famotidine 20 mg PO BID 07/24/20 [History] Montelukast Sodium 10 mg PO DAILY 07/24/20 [History] Torsemide 10 mg PO DAILY 07/24/20 [History] busPIRone HCl [Buspirone HCl] 30 mg PO BID 07/24/20 [History] lamoTRIgine [Lamotrigine] 150 mg PO DAILY 07/24/20 [History] valACYclovir HCl [valACYclovir] 2 tab PO ASDIRECTED PRN 07/24/20 [History] ARIPiprazole [Abilify] 15 mg PO DAILY 08/02/20 [History] Furosemide [Lasix] 20 mg PO DAILY 08/02/20 [History] Rivaroxaban [Xarelto] 20 mg PO DAILY 08/02/20 [History] Temazepam [Restoril] 15 mg PO DAILY 08/02/20 [History] amLODIPine Besylate/Benazepril [Amlodipine-Benazepril 5-40 mg] 1 dose PO ASDIRECTED 08/02/20 [History] Past Medical History HEENT History: Reports: None Cardiovascular History: Reports: Afib, Blood Clots/VTE/DVT, Hypertension Other Cardiovascular History: hx DVT-left leg Respiratory History: Reports: None Gastrointestinal History: Reports: GERD Genitourinary History: Reports: Other (See Below) Other Genitourinary History: stage III CKD E [employer] History: Reports: None Musculoskeletal History: Reports: Arthritis, Fracture Neurological History: Reports: None Psychiatric History: Reports: Anxiety, Bipolar, Depression Endocrine/Metabolic History: Reports: Obesity/BMI 30+ Hematologic History: Reports: Anemia Immunologic History: Reports: Other (See Below) Other Immunologic History: hx MRSA Oncologic (Cancer) History: Reports: None Dermatologic History: Reports: None - Infectious Disease History Infectious Disease History: Reports: MRSA - Past Surgical History Head Surgeries/Procedures: Reports: None HEENT Surgical History: Reports: None Cardiovascular Surgical History: Reports: None Respiratory Surgical History: Reports: None GI Surgical History: Reports: Bariatric Procedure, Colonoscopy Female Surgical History: Reports: None Endocrine Surgical History: Reports: None Neurological Surgical History: Reports: None Musculoskeletal Surgical History: Reports: Hip Replacement, ORIF Other Musculoskeletal Surgeries/Procedures:: hip replacement, right x 3 and left x 1, ORIF right fx femur Oncologic Surgical History: Reports: None Dermatological Surgical History: Reports: None Social & Family History - Family History Family Medical History: No Pertinent Family History Cardiac: Reports: Heart Failure, High Cholesterol, Hypertension, ID Musculoskeletal: Reports: Arthritis, Osteoarthritis Endocrine/Metabolic: Reports: Diabetes, type II - Tobacco Use Tobacco Use Status *Q: Never Tobacco User - Caffeine Use Caffeine Use: Reports: Coffee Caffeine Use Comment: 2cups/day - Recreational Drug Use Recreational Drug Use: No ED ROS GENERAL - Review of Systems Review Of Systems: See Below ED EXAM, GENERAL - Physical Exam Exam: See Below Course - Vital Signs Last Recorded V/S: Last Vital Signs Temp 97 F 08/02/20 19:10 Pulse 75 08/02/20 19:55 Resp 18 08/02/20 19:10 BP 121/74 08/02/20 19:41 Pulse Ox 95 08/02/20 19:55 - Orders/Labs/Meds Orders: Active Orders 24 hr Category Date Time Status Patient Status [ADT] Routine ADT 08/02/20 20:34 Ordered EKG Documentation Completion [RC] AM Care 08/02/20 19:13 Active Diltiazem [Cardizem] 100 mg Med 08/02/20 19:15 Active Sodium Chloride 0.9% [Normal Saline] 100 ml IV NOW Sodium Chloride 0.9% [Saline Flush] Med 08/02/20 19:13 Active 10 ml FLUSH ASDIRECTED PRN Sodium Chloride 0.9% [Saline Flush] Med 08/02/20 19:13 Active 2.5 ml FLUSH ASDIRECTED PRN Saline Lock Insert [OM.PC] Stat Oth 08/02/20 19:13 Ordered Medication Orders Diltiazem HCl 100 mg/ Sodium (Chloride) 100 mls @ 5 mls/hr IV NOW [facility]; Protocol Last Admin: 08/02/20 19:29 Dose: 5 mg/hr, 5 mls/hr Documented by: OVIDIO Sodium Chloride (Sodium Chloride 0.9% 10 Ml Syringe) 10 ml FLUSH ASDIRECTED PRN PRN Reason: Keep Vein Open Last Admin: 08/02/20 19:18 Dose: 10 ml Documented by: LEONIDAS Sodium Chloride (Sodium Chloride 0.9% 2.5 Ml Syringe) 2.5 ml FLUSH ASDIRECTED PRN PRN Reason: Keep Vein Open Last Admin: 08/02/20 19:17 Dose: 2.5 ml Documented by: LEONIDAS Labs: Laboratory Tests 08/02/20 08/02/20 08/02/20 Range/Units 19:00 19:00 19:00 WBC 8.55 (4.0-11.0) K/uL RBC 4.50 (4.30-5.90) M/uL Hgb 13.6 (12.0-16.0) g/dL Hct 41.2 (36.0-46.0) % MCV 91.6 (80.0-98.0) fL MCH 30.2 (27.0-32.0) pg MCHC 33.0 (31.0-37.0) g/dL RDW Std Deviation 44.0 (28.0-62.0) fl RDW Coeff of Ravi 13 (11.0-15.0) % Plt Count 281 (150-400) K/uL MPV 9.70 (7.40-12.00) fL Neut % (Auto) 45.3 L (48.0-80.0) % Lymph % (Auto) 43.7 H (16.0-40.0) % [place]ock % (Auto) 8.7 (0.0-15.0) % Eos % (Auto) 1.8 (0.0-7.0) % Baso % (Auto) 0.5 (0.0-1.5) % Neut # (Auto) 3.9 (1.4-5.7) K/uL Lymph # (Auto) 3.7 H (0.6-2.4) K/uL [place]ock # (Auto) 0.7 (0.0-0.8) K/uL Eos # (Auto) 0.2 (0.0-0.7) K/uL Baso # (Auto) 0.0 (0.0-0.1) K/uL INR D-Dimer, Quantitative 0.38 (0.0-0.50) mg/L FEU Sodium 140 (136-145) mmol/L Potassium 3.9 (3.5-5.1) mmol/L Chloride 104 (98-107) mmol/L Carbon Dioxide 23.9 (21.0-32.0) mmol/L BUN 19 H (7.0-18.0) mg/dL Creatinine 1.8 H (0.6-1.0) mg/dL Est Cr Clr Drug Dosing 32.32 mL/min Estimated GFR (MDRD) 28.7 ml/min Glucose 80 (74-106) mg/dL Calcium 9.2 (8.5-10.1) mg/dL Phosphorus 4.4 (2.6-4.7) mg/dL Magnesium 2.1 (1.8-2.4) mg/dL Total Bilirubin 0.2 (0.2-1.0) mg/dL AST 21 (15-37) IU/L ALT 36 (14-63) IU/L Alkaline Phosphatase 149 H (46-116) U/L Troponin I < 0.050 (0.000-0.056) ng/mL B-Natriuretic Peptide (<100) PG/ML Total Protein 8.1 (6.4-8.2) g/dL Albumin 4.4 (3.4-5.0) g/dL Globulin 3.7 (2.6-4.0) g/dL Albumin/Globulin Ratio 1.2 (0.9-1.6) TSH 3rd Generation 1.80 (0.36-3.74) uIU/mL Urine Color Urine Appearance Urine pH (5.0-8.0) Ur Specific Mobile (1.001-1.035) Urine Protein (NEGATIVE) mg/dL Urine Glucose (UA) (NEGATIVE) mg/dL Urine Ketones (NEGATIVE) mg/dL Urine Occult Blood (NEGATIVE) Urine Nitrite (NEGATIVE) Urine Bilirubin (NEGATIVE) Urine Urobilinogen (<2.0) EU/dL Ur Leukocyte Esterase (NEGATIVE) SARS-CoV-2 RNA (CRISTOBAL) (NEGATIVE) 08/02/20 08/02/20 08/02/20 Range/Units 19:00 19:00 19:30 WBC (4.0-11.0) K/uL RBC (4.30-5.90) M/uL Hgb (12.0-16.0) g/dL Hct (36.0-46.0) % MCV (80.0-98.0) fL MCH (27.0-32.0) pg MCHC (31.0-37.0) g/dL RDW Std Deviation (28.0-62.0) fl RDW Coeff of Ravi (11.0-15.0) % Plt Count (150-400) K/uL MPV (7.40-12.00) fL Neut % (Auto) (48.0-80.0) % Lymph % (Auto) (16.0-40.0) % [place] % (Auto) (0.0-15.0) % Eos % (Auto) (0.0-7.0) % Baso % (Auto) (0.0-1.5) % Neut # (Auto) (1.4-5.7) K/uL Lymph # (Auto) (0.6-2.4) K/uL [place] # (Auto) (0.0-0.8) K/uL Eos # (Auto) (0.0-0.7) K/uL Baso # (Auto) (0.0-0.1) K/uL INR 1.16 D-Dimer, Quantitative (0.0-0.50) mg/L FEU Sodium (136-145) mmol/L Potassium (3.5-5.1) mmol/L Chloride (98-107) mmol/L Carbon Dioxide (21.0-32.0) mmol/L BUN (7.0-18.0) mg/dL Creatinine (0.6-1.0) mg/dL Est Cr Clr Drug Dosing mL/min Estimated GFR (MDRD) ml/min Glucose (74-106) mg/dL Calcium (8.5-10.1) mg/dL Phosphorus (2.6-4.7) mg/dL Magnesium (1.8-2.4) mg/dL Total Bilirubin (0.2-1.0) mg/dL AST (15-37) IU/L ALT (14-63) IU/L Alkaline Phosphatase (46-116) U/L Troponin I (0.000-0.056) ng/mL B-Natriuretic Peptide 79 (<100) PG/ML Total Protein (6.4-8.2) g/dL Albumin (3.4-5.0) g/dL Globulin (2.6-4.0) g/dL Albumin/Globulin Ratio (0.9-1.6) TSH 3rd Generation (0.36-3.74) uIU/mL Urine Color Urine Appearance Urine pH (5.0-8.0) Ur Specific Mobile (1.001-1.035) Urine Protein (NEGATIVE) mg/dL Urine Glucose (UA) (NEGATIVE) mg/dL Urine Ketones (NEGATIVE) mg/dL Urine Occult Blood (NEGATIVE) Urine Nitrite (NEGATIVE) Urine Bilirubin (NEGATIVE) Urine Urobilinogen (<2.0) EU/dL Ur Leukocyte Esterase (NEGATIVE) SARS-CoV-2 RNA (CRISTOBAL) NEGATIVE (NEGATIVE) 08/02/20 Range/Units 20:25 WBC (4.0-11.0) K/uL RBC (4.30-5.90) M/uL Hgb (12.0-16.0) g/dL Hct (36.0-46.0) % MCV (80.0-98.0) fL MCH (27.0-32.0) pg MCHC (31.0-37.0) g/dL RDW Std Deviation (28.0-62.0) fl RDW Coeff of Ravi (11.0-15.0) % Plt Count (150-400) K/uL MPV (7.40-12.00) fL Neut % (Auto) (48.0-80.0) % Lymph % (Auto) (16.0-40.0) % [place] % (Auto) (0.0-15.0) % Eos % (Auto) (0.0-7.0) % Baso % (Auto) (0.0-1.5) % Neut # (Auto) (1.4-5.7) K/uL Lymph # (Auto) (0.6-2.4) K/uL [place] # (Auto) (0.0-0.8) K/uL Eos # (Auto) (0.0-0.7) K/uL Baso # (Auto) (0.0-0.1) K/uL INR D-Dimer, Quantitative (0.0-0.50) mg/L FEU Sodium (136-145) mmol/L Potassium (3.5-5.1) mmol/L Chloride (98-107) mmol/L Carbon Dioxide (21.0-32.0) mmol/L BUN (7.0-18.0) mg/dL Creatinine (0.6-1.0) mg/dL Est Cr Clr Drug Dosing mL/min Estimated GFR (MDRD) ml/min Glucose (74-106) mg/dL Calcium (8.5-10.1) mg/dL Phosphorus (2.6-4.7) mg/dL Magnesium (1.8-2.4) mg/dL Total Bilirubin (0.2-1.0) mg/dL AST (15-37) IU/L ALT (14-63) IU/L Alkaline Phosphatase (46-116) U/L Troponin I (0.000-0.056) ng/mL B-Natriuretic Peptide (<100) PG/ML Total Protein (6.4-8.2) g/dL Albumin (3.4-5.0) g/dL Globulin (2.6-4.0) g/dL Albumin/Globulin Ratio (0.9-1.6) TSH 3rd Generation (0.36-3.74) uIU/mL Urine Color YELLOW Urine Appearance CLEAR Urine pH 5.5 (5.0-8.0) Ur Specific Mobile 1.025 (1.001-1.035) Urine Protein NEGATIVE (NEGATIVE) mg/dL Urine Glucose (UA) NEGATIVE (NEGATIVE) mg/dL Urine Ketones NEGATIVE (NEGATIVE) mg/dL Urine Occult Blood NEGATIVE (NEGATIVE) Urine Nitrite NEGATIVE (NEGATIVE) Urine Bilirubin NEGATIVE (NEGATIVE) Urine Urobilinogen 0.2 (<2.0) EU/dL Ur Leukocyte Esterase NEGATIVE (NEGATIVE) SARS-CoV-2 RNA (CRISTOBAL) (NEGATIVE) Meds: Medications Generic Name Dose Route Start Last Admin Trade Name Freq PRN Reason Stop Dose Admin Diltiazem HCl 100 mg/ Sodium 100 mls @ 5 mls/hr 08/02/20 19:15 08/02/20 19:29 Chloride IV 5 mg/hr NOW ROSEMARIE 5 mls/hr Administration Protocol 5 MG/HR Sodium Chloride 10 ml 08/02/20 19:13 08/02/20 19:18 Sodium Chloride 0.9% 10 Ml Syringe FLUSH 10 ml ASDIRECTED PRN Administration Keep Vein Open Sodium Chloride 2.5 ml 08/02/20 19:13 08/02/20 19:17 Sodium Chloride 0.9% 2.5 Ml Syringe FLUSH 2.5 ml ASDIRECTED PRN Administration Keep Vein Open Discontinued Medications Generic Name Dose Route Start Last Admin Trade Name Freq PRN Reason Stop Dose Admin Diltiazem HCl 20 mg 08/02/20 19:15 08/02/20 19:29 Diltiazem 25 Mg/5 Ml Sdv IVPUSH 08/02/20 19:16 20 mg ONETIME ONE Administration Sodium Chloride 1,000 mls @ 999 mls/hr 08/02/20 19:13 08/02/20 19:17 Normal Saline IV 08/02/20 20:13 999 mls/hr .Bolus ONE Administration Departure - Departure Time of Disposition: 20:58 Disposition: Admitted As Inpatient 66 Condition: Good, Fair Clinical Impression: Atrial fibrillation with rapid ventricular response Referrals: PCP,None [Primary Care Provider] - Forms: ED Department Discharge Sepsis Event Note (ED) - Evaluation Sepsis Screening Result: No Definite Risk - Focused Exam Vital Signs: Vital Signs Temp Pulse Resp BP Pulse Ox 08/02/20 19:55 75 95 08/02/20 19:41 81 121/74 97 08/02/20 19:10 97 F 141 H 18 117/80 96 - My Orders Last 24 Hours: My Active Orders 08/02/20 19:13 EKG Documentation Completion [RC] AM Sodium Chloride 0.9% [Saline Flush] 10 ml FLUSH ASDIRECTED PRN Sodium Chloride 0.9% [Saline Flush] 2.5 ml FLUSH ASDIRECTED PRN Saline Lock Insert [OM.PC] Stat 08/02/20 19:15 Diltiazem [Cardizem] 100 mg Sodium Chloride 0.9% [Normal Saline] 100 ml IV NOW 08/02/20 20:34 Patient Status [ADT] Routine - Assessment/Plan Last 24 Hours: My Active Orders 08/02/20 19:13 EKG Documentation Completion [RC] AM Sodium Chloride 0.9% [Saline Flush] 10 ml FLUSH ASDIRECTED PRN Sodium Chloride 0.9% [Saline Flush] 2.5 ml FLUSH ASDIRECTED PRN Saline Lock Insert [OM.PC] Stat 08/02/20 19:15 Diltiazem [Cardizem] 100 mg Sodium Chloride 0.9% [Normal Saline] 100 ml IV NOW 08/02/20 20:34 Patient Status [ADT] Routine
[2020-08-02 19:46] LABS: BLOOD UREA NITROGEN,BUN 19 mg/dL (7.0-18.0); CARBON DIOXIDE,CO2 23.9 mmol/L (21.0-32.0); CHLORIDE,CL 104 mmol/L (98-107); GLUCOSE RANDOM 80 mg/dL (74-106); POTASSIUM,K 3.9 mmol/L (3.5-5.1); SODIUM,NA 140 mmol/L (136-145)
--- NOTE | 2020-08-02 19:46 | CR ---
Indication: Shortness of breath Technique: Chest 1 view Comparison: August 14, 2016 Findings/Impression: Normal cardiomediastinal silhouette. Normal pulmonary vasculature. The lungs and pleural spaces are clear. No acute osseous abnormality. Dictated by Christine Simental MD @ Aug 02 2020 7:44PM Signed by Dr. Christine Simental @ Aug 02 2020 7:45PM
[2020-08-02] MEDS ORDERED: Albuterol/Ipratropium 3.0-0.5 MG/3 ML Neb Soln NEB PRN (21:07)
[2020-08-02] MEDS ORDERED: Acetaminophen 325 MG Tab PO PRN (21:07)
[2020-08-02] MEDS ORDERED: Ondansetron 4 MG/2 ML SDV IVPUSH PRN (21:07)
--- NOTE | 2020-08-02 21:11 | PCM.HP.2 ---
H&P History of Present Illness - General Date of Service: 08/02/20 Admit Problem/Dx: Admission Diagnosis/Problem Admission Diagnosis/Problem Atrial fibrillation with rapid ventricular response - History of Present Illness Initial Comments - Free Text/Narative: This is a 60-year-old female with a Past history significant for atrial fibrillation on Xarelto, HTN, anxiety, remote h/o DVT, CKD presents ER today secondary to palpitations and discomfort in her chest that started approximately 1.5 hours prior to arrival. SHe was concerned she in in Afiv RVR, Patient reports that she is currently on Xarelto as well as metoprolol and is compliant with her meds and has been doing well so far. She was disgnaoes with Afib few years back. Patient denies any recent fevers, shakes, chills, nausea, vomiting, diarrhea, dysuria, frequency, urgency. Patient reports that she did have some shortness of breath and diaphoresis associated with it. Patient reports that she feels palpitations in her chest with some pressure sensation as well. Patient denies any pain rating down her jaw back or throat. She reports rhinorrhea but no cough or congestion. She has been eating and drinking ok. In the ER patient was found to be in Afib RVR om EKG, Troponin was negative, patient was started on Cardizem gtt for rate control and admitted to ICU. Chest Pain Score (Numeric/FACES): 4 - Related Data Allergies/Adverse Reactions: Allergies Allergy/AdvReac Type Severity Reaction Status Date / Time morphine Allergy Itching Verified 08/02/20 22:16 Home Medications: Home Meds Estazolam 2 mg PO BEDTIME PRN 01/28/16 [History] Metoprolol Succinate [Toprol XL] 12.5 mg PO DAILY 01/28/16 [History] Pantoprazole [ProTONIX] 40 mg PO ACBREAKFAST 01/28/16 [History] hydrOXYzine pamoate [Hydroxyzine Pamoate] 2 tab PO BEDTIME PRN 01/28/16 [History] traZODone 2 tab PO BEDTIME 01/28/16 [History] LORazepam 0.5 mg PO DAILY PRN 08/14/16 [History] Desvenlafaxine Succinate [Desvenlafaxine Succinate ER] 100 mg PO DAILY 07/24/20 [History] Famotidine 20 mg PO BID 07/24/20 [History] Montelukast Sodium 10 mg PO DAILY 07/24/20 [History] Torsemide 10 mg PO DAILY 07/24/20 [History] busPIRone HCl [Buspirone HCl] 30 mg PO BID 07/24/20 [History] lamoTRIgine [Lamotrigine] 150 mg PO DAILY 07/24/20 [History] ARIPiprazole [Abilify] 15 mg PO DAILY 08/02/20 [History] Rivaroxaban [Xarelto] 20 mg PO DAILY 08/02/20 [History] Temazepam [Restoril] 15 mg PO DAILY 08/02/20 [History] amLODIPine Besylate/Benazepril [Amlodipine-Benazepril 5-40 mg] 1 dose PO DAILY 08/02/20 [History] Past Medical History HEENT History: Reports: None Cardiovascular History: Reports: Afib, Blood Clots/VTE/DVT, Hypertension Other Cardiovascular History: hx DVT-left leg Respiratory History: Reports: None Gastrointestinal History: Reports: GERD Genitourinary History: Reports: Other (See Below) Other Genitourinary History: stage III CKD [employer] History: Reports: None Musculoskeletal History: Reports: Arthritis, Fracture Neurological History: Reports: None Psychiatric History: Reports: Anxiety, Bipolar, Depression Endocrine/Metabolic History: Reports: Obesity/BMI 30+ Hematologic History: Reports: Anemia Immunologic History: Reports: Other (See Below) Other Immunologic History: hx MRSA Oncologic (Cancer) History: Reports: None Dermatologic History: Reports: None - Infectious Disease History Infectious Disease History: Reports: MRSA - Past Surgical History Head Surgeries/Procedures: Reports: None HEENT Surgical History: Reports: None Cardiovascular Surgical History: Reports: None Respiratory Surgical History: Reports: None GI Surgical History: Reports: Bariatric Procedure, Colonoscopy Female Surgical History: Reports: None Endocrine Surgical History: Reports: None Neurological Surgical History: Reports: None Musculoskeletal Surgical History: Reports: Hip Replacement, ORIF Other Musculoskeletal Surgeries/Procedures:: hip replacement, right x 3 and left x 1, ORIF right fx femur Oncologic Surgical History: Reports: None Dermatological Surgical History: Reports: None Social & Family History - Family History Family Medical History: No Pertinent Family History Cardiac: Reports: Heart Failure, High Cholesterol, Hypertension, ID Musculoskeletal: Reports: Arthritis, Osteoarthritis Endocrine/Metabolic: Reports: Diabetes, type II - Tobacco Use Tobacco Use Status *Q: Never Tobacco User - Caffeine Use Caffeine Use: Reports: Coffee Caffeine Use Comment: 2cups/day - Recreational Drug Use Recreational Drug Use: No H&P Review of Systems - Review of Systems: Review Of Systems: See Below General: Denies: Fever, Chills, Malaise Pulmonary: Reports: Shortness of Breath. Denies: Wheezing, Pleuritic Chest Pain Cardiovascular: Reports: Chest Pain, Palpitations. Denies: Dyspnea on Exertion, Orthopnea Gastrointestinal: Denies: Abdominal Pain, Anorexia, Black Stool, Hematemesis, Hematochezia, Vomiting Genitourinary: Denies: Dysuria, Frequency, Burning Musculoskeletal: Denies: Neck Pain, Shoulder Pain, Arm Pain Skin: Denies: Cyanosis, Jaundice, Mottled Psychiatric: Reports: Mood Lability. Denies: Confusion, Depression, Agitation, Cravings, Hallucinations Neurological: Denies: Confusion, Dizziness, Headache Exam - Exam Exam: See Below - Vital Signs Vital Signs: Last Vital Signs Temp 36.1 C 08/02/20 19:10 Pulse 108 H 08/02/20 20:41 Resp 18 08/02/20 19:10 BP 114/79 08/02/20 20:41 Pulse Ox 96 08/02/20 20:41 Weight: 89.811 kg - Exam General: Alert, Oriented Neck: Supple, Trachea Midline Lungs: Clear to Auscultation, Normal Respiratory Effort Cardiovascular: Irregular Rhythm, Tachycardia. No: Systolic Murmur, Diastolic Murmur GI/Abdominal Exam: Normal Bowel Sounds, Soft, Non-Tender Back Exam: Normal Inspection Extremities: Pedal Edema - Patient Data Lab Results Last 24 hrs: Laboratory Results - last 24 hr 08/02/20 08/02/20 08/02/20 Range/Units 19:00 19:00 19:00 WBC 8.55 (4.0-11.0) K/uL RBC 4.50 (4.30-5.90) M/uL Hgb 13.6 (12.0-16.0) g/dL Hct 41.2 (36.0-46.0) % MCV 91.6 (80.0-98.0) fL MCH 30.2 (27.0-32.0) pg MCHC 33.0 (31.0-37.0) g/dL RDW Std Deviation 44.0 (28.0-62.0) fl RDW Coeff of Ravi 13 (11.0-15.0) % Plt Count 281 (150-400) K/uL MPV 9.70 (7.40-12.00) fL Neut % (Auto) 45.3 L (48.0-80.0) % Lymph % (Auto) 43.7 H (16.0-40.0) % Harper % (Auto) 8.7 (0.0-15.0) % Eos % (Auto) 1.8 (0.0-7.0) % Baso % (Auto) 0.5 (0.0-1.5) % Neut # (Auto) 3.9 (1.4-5.7) K/uL Lymph # (Auto) 3.7 H (0.6-2.4) K/uL Harper # (Auto) 0.7 (0.0-0.8) K/uL Eos # (Auto) 0.2 (0.0-0.7) K/uL Baso # (Auto) 0.0 (0.0-0.1) K/uL INR D-Dimer, Quantitative 0.38 (0.0-0.50) mg/L FEU Sodium 140 (136-145) mmol/L Potassium 3.9 (3.5-5.1) mmol/L Chloride 104 (98-107) mmol/L Carbon Dioxide 23.9 (21.0-32.0) mmol/L BUN 19 H (7.0-18.0) mg/dL Creatinine 1.8 H (0.6-1.0) mg/dL Est Cr Clr Drug Dosing 32.32 mL/min Estimated GFR (MDRD) 28.7 ml/min Glucose 80 (74-106) mg/dL Calcium 9.2 (8.5-10.1) mg/dL Phosphorus 4.4 (2.6-4.7) mg/dL Magnesium 2.1 (1.8-2.4) mg/dL Total Bilirubin 0.2 (0.2-1.0) mg/dL AST 21 (15-37) IU/L ALT 36 (14-63) IU/L Alkaline Phosphatase 149 H (46-116) U/L Troponin I < 0.050 (0.000-0.056) ng/mL B-Natriuretic Peptide (<100) PG/ML Total Protein 8.1 (6.4-8.2) g/dL Albumin 4.4 (3.4-5.0) g/dL Globulin 3.7 (2.6-4.0) g/dL Albumin/Globulin Ratio 1.2 (0.9-1.6) TSH 3rd Generation 1.80 (0.36-3.74) uIU/mL Urine Color Urine Appearance Urine pH (5.0-8.0) Ur Specific [place] (1.001-1.035) Urine Protein (NEGATIVE) mg/dL Urine Glucose (UA) (NEGATIVE) mg/dL Urine Ketones (NEGATIVE) mg/dL Urine Occult Blood (NEGATIVE) Urine Nitrite (NEGATIVE) Urine Bilirubin (NEGATIVE) Urine Urobilinogen (<2.0) EU/dL Ur Leukocyte Esterase (NEGATIVE) SARS-CoV-2 RNA (CRISTOBAL) (NEGATIVE) 08/02/20 08/02/20 08/02/20 Range/Units 19:00 19:00 19:30 WBC (4.0-11.0) K/uL RBC (4.30-5.90) M/uL Hgb (12.0-16.0) g/dL Hct (36.0-46.0) % MCV (80.0-98.0) fL MCH (27.0-32.0) pg MCHC (31.0-37.0) g/dL RDW Std Deviation (28.0-62.0) fl RDW Coeff of Ravi (11.0-15.0) % Plt Count (150-400) K/uL MPV (7.40-12.00) fL Neut % (Auto) (48.0-80.0) % Lymph % (Auto) (16.0-40.0) % Harper % (Auto) (0.0-15.0) % Eos % (Auto) (0.0-7.0) % Baso % (Auto) (0.0-1.5) % Neut # (Auto) (1.4-5.7) K/uL Lymph # (Auto) (0.6-2.4) K/uL Harper # (Auto) (0.0-0.8) K/uL Eos # (Auto) (0.0-0.7) K/uL Baso # (Auto) (0.0-0.1) K/uL INR 1.16 D-Dimer, Quantitative (0.0-0.50) mg/L FEU Sodium (136-145) mmol/L Potassium (3.5-5.1) mmol/L Chloride (98-107) mmol/L Carbon Dioxide (21.0-32.0) mmol/L BUN (7.0-18.0) mg/dL Creatinine (0.6-1.0) mg/dL Est Cr Clr Drug Dosing mL/min Estimated GFR (MDRD) ml/min Glucose (74-106) mg/dL Calcium (8.5-10.1) mg/dL Phosphorus (2.6-4.7) mg/dL Magnesium (1.8-2.4) mg/dL Total Bilirubin (0.2-1.0) mg/dL AST (15-37) IU/L ALT (14-63) IU/L Alkaline Phosphatase (46-116) U/L Troponin I (0.000-0.056) ng/mL B-Natriuretic Peptide 79 (<100) PG/ML Total Protein (6.4-8.2) g/dL Albumin (3.4-5.0) g/dL Globulin (2.6-4.0) g/dL Albumin/Globulin Ratio (0.9-1.6) TSH 3rd Generation (0.36-3.74) uIU/mL Urine Color Urine Appearance Urine pH (5.0-8.0) Ur Specific [place] (1.001-1.035) Urine Protein (NEGATIVE) mg/dL Urine Glucose (UA) (NEGATIVE) mg/dL Urine Ketones (NEGATIVE) mg/dL Urine Occult Blood (NEGATIVE) Urine Nitrite (NEGATIVE) Urine Bilirubin (NEGATIVE) Urine Urobilinogen (<2.0) EU/dL Ur Leukocyte Esterase (NEGATIVE) SARS-CoV-2 RNA (CRISTOBAL) NEGATIVE (NEGATIVE) 08/02/20 Range/Units 20:25 WBC (4.0-11.0) K/uL RBC (4.30-5.90) M/uL Hgb (12.0-16.0) g/dL Hct (36.0-46.0) % MCV (80.0-98.0) fL MCH (27.0-32.0) pg MCHC (31.0-37.0) g/dL RDW Std Deviation (28.0-62.0) fl RDW Coeff of Ravi (11.0-15.0) % Plt Count (150-400) K/uL MPV (7.40-12.00) fL Neut % (Auto) (48.0-80.0) % Lymph % (Auto) (16.0-40.0) % Harper % (Auto) (0.0-15.0) % Eos % (Auto) (0.0-7.0) % Baso % (Auto) (0.0-1.5) % Neut # (Auto) (1.4-5.7) K/uL Lymph # (Auto) (0.6-2.4) K/uL Harper # (Auto) (0.0-0.8) K/uL Eos # (Auto) (0.0-0.7) K/uL Baso # (Auto) (0.0-0.1) K/uL INR D-Dimer, Quantitative (0.0-0.50) mg/L FEU Sodium (136-145) mmol/L Potassium (3.5-5.1) mmol/L Chloride (98-107) mmol/L Carbon Dioxide (21.0-32.0) mmol/L BUN (7.0-18.0) mg/dL Creatinine (0.6-1.0) mg/dL Est Cr Clr Drug Dosing mL/min Estimated GFR (MDRD) ml/min Glucose (74-106) mg/dL Calcium (8.5-10.1) mg/dL Phosphorus (2.6-4.7) mg/dL Magnesium (1.8-2.4) mg/dL Total Bilirubin (0.2-1.0) mg/dL AST (15-37) IU/L ALT (14-63) IU/L Alkaline Phosphatase (46-116) U/L Troponin I (0.000-0.056) ng/mL B-Natriuretic Peptide (<100) PG/ML Total Protein (6.4-8.2) g/dL Albumin (3.4-5.0) g/dL Globulin (2.6-4.0) g/dL Albumin/Globulin Ratio (0.9-1.6) TSH 3rd Generation (0.36-3.74) uIU/mL Urine Color YELLOW Urine Appearance CLEAR Urine pH 5.5 (5.0-8.0) Ur Specific [place] 1.025 (1.001-1.035) Urine Protein NEGATIVE (NEGATIVE) mg/dL Urine Glucose (UA) NEGATIVE (NEGATIVE) mg/dL Urine Ketones NEGATIVE (NEGATIVE) mg/dL Urine Occult Blood NEGATIVE (NEGATIVE) Urine Nitrite NEGATIVE (NEGATIVE) Urine Bilirubin NEGATIVE (NEGATIVE) Urine Urobilinogen 0.2 (<2.0) EU/dL Ur Leukocyte Esterase NEGATIVE (NEGATIVE) SARS-CoV-2 RNA (CRISTOBAL) (NEGATIVE) Result Diagrams: 08/03/20 06:00 08/03/20 06:00 Sepsis Event Note - Evaluation Sepsis Screening Result: No Definite Risk - Focused Exam Vital Signs: Vital Signs Temp Pulse Resp BP Pulse Ox 08/02/20 20:41 108 H 114/79 96 08/02/20 20:11 79 118/69 95 08/02/20 19:55 75 95 08/02/20 19:41 81 121/74 97 08/02/20 19:10 36.1 C 141 H 18 117/80 96 - Problem List (1) Atrial fibrillation with rapid ventricular response SNOMED Code(s): 278455838766046 ICD Code: I48.91 - UNSPECIFIED ATRIAL FIBRILLATION Status: Acute Current Visit: Yes (2) Anxiety SNOMED Code(s): 44695672 ICD Code: F41.9 - ANXIETY DISORDER, UNSPECIFIED Status: Acute Current Visit: No (3) CKD (chronic kidney disease) SNOMED Code(s): 391547086 ICD Code: N18.9 - CHRONIC KIDNEY DISEASE, UNSPECIFIED Status: Acute Current Visit: Yes Problem List Initiated/Reviewed/Updated: Yes Orders Last 24hrs: Active Orders 24 hr Category Date Time Status Patient Status [ADT] Routine ADT 08/02/20 20:34 Active Ambulate [RC] ASDIRECTED Care 08/02/20 21:07 Active Antiembolic Devices [RC] PER UNIT ROUTINE Care 08/02/20 21:08 Active EKG Documentation Completion [RC] AM Care 08/02/20 19:13 Active Oxygen Therapy [RC] PRN Care 08/02/20 21:08 Active RT Aerosol Therapy [RC] ASDIRECTED Care 08/02/20 21:09 Active VTE/DVT Education [RC] PER UNIT ROUTINE Care 08/02/20 21:08 Active Vital Signs [RC] Q4H Care 08/02/20 21:08 Active Heart Healthy Diet [DIET] Diet 08/02/20 Dinner Active TROPONIN I [CHEM] Routine Lab 08/02/20 22:00 Ordered Acetaminophen [TylenoL] Med 08/02/20 21:07 Ordered 650 mg PO Q4H PRN Albuterol/Ipratropium [DuoNeb 3.0-0.5 MG/3 ML] Med 08/02/20 21:07 Ordered 3 ml NEB Q4HRRT PRN Diltiazem [Cardizem] 100 mg Med 08/02/20 19:15 Active Sodium Chloride 0.9% [Normal Saline] 100 ml IV NOW Lactated Ringers [Ringers, Lactated] 1,000 ml Med 08/02/20 21:15 Ordered IV ASDIRECTED Ondansetron [Zofran] Med 08/02/20 21:07 Ordered 4 mg IVPUSH Q4H PRN Sodium Chloride 0.9% [Saline Flush] Med 08/02/20 19:13 Active 10 ml FLUSH ASDIRECTED PRN Sodium Chloride 0.9% [Saline Flush] Med 08/02/20 19:13 Active 2.5 ml FLUSH ASDIRECTED PRN Saline Lock Insert [OM.PC] Stat Oth 08/02/20 19:13 Ordered Sequential Compression Device [OM.PC] Per Unit Routine Oth 08/02/20 21:08 Ordered Medication Orders Acetaminophen (Acetaminophen 325 Mg Tab) 650 mg PO Q4H PRN PRN Reason: Pain (Mild 1-3)/fever Albuterol/Ipratropium (Albuterol/Ipratropium 3.0-0.5 Mg/3 Ml Neb Soln) 3 ml NEB Q4HRRT PRN PRN Reason: Shortness Of Breath/wheezing Diltiazem HCl 100 mg/ Sodium (Chloride) 100 mls @ 5 mls/hr IV NOW ROSEMARIE; Protocol Last Admin: 08/02/20 19:29 Dose: 5 mg/hr, 5 mls/hr Documented by: SLATBRI Lactated Ringer's (Ringers, Lactated) 1,000 mls @ 125 mls/hr IV ASDIRECTED ROSEMARIE Ondansetron HCl (Ondansetron 4 Mg/2 Ml Sdv) 4 mg IVPUSH Q4H PRN PRN Reason: Nausea/Vomiting Sodium Chloride (Sodium Chloride 0.9% 10 Ml Syringe) 10 ml FLUSH ASDIRECTED PRN PRN Reason: Keep Vein Open Last Admin: 08/02/20 19:18 Dose: 10 ml Documented by: LEONIDAS Sodium Chloride (Sodium Chloride 0.9% 2.5 Ml Syringe) 2.5 ml FLUSH ASDIRECTED PRN PRN Reason: Keep Vein Open Last Admin: 08/02/20 19:17 Dose: 2.5 ml Documented by: LEONIDAS Assessment/Plan Comment:: 60 y/o F admitted for afib rvr Unsure of trigger, looks bit dehydrated on exam cont Cardizem gtt wean off as able, bridge with oral Cardizem cont Xarelto Cont metoprolol if BP is able to tolerate cont IV fluids over night, dc in AM to avoid fluid overload cont home meds as appropriate Will touch base with Dr Vega, cardiology in AM
[2020-08-02] MEDS ORDERED: Lactated Ringers 1,000 ML IV SCH (21:15)
[2020-08-02] MEDS ORDERED: ESTAZOLAM 2 MG PO PRN (22:22)
[2020-08-02] MEDS: hydrOXYzine Pamoate 25 MG Cap PO PRN (23:07)
[2020-08-02] MEDS: traZODone 50 MG Tab PO SCH (23:07)
[2020-08-02] MEDS: busPIRone 5 MG Tab PO SCH (23:08)
[2020-08-02] MEDS: Famotidine 20 MG Tab PO SCH (23:08)
[2020-08-03] MEDS: Diltiazem IR 30 MG Tab PO SCH ×3 (03:38→11:46)
[2020-08-03] MEDS ORDERED: Diltiazem IR 60 MG Tab PO ONE (04:00)
[2020-08-03 06:24] LABS: CARBON DIOXIDE,CO2 24.6 mmol/L (21.0-32.0); POTASSIUM,K 3.4 mmol/L (3.5-5.1)
[2020-08-03] MEDS: Pantoprazole 40 MG Tab.CR PO SCH (07:19)
[2020-08-03] MEDS ORDERED: Magnesium Oxide 400 MG Tab PO ONE (08:30)
[2020-08-03] MEDS ORDERED: Potassium Chloride 10% 20 MEQ/15 ML Soln 30 ML UD Cup PO ONE (08:35)
[2020-08-03] MEDS: Rivaroxaban 10 MG Tab PO SCH (08:46)
[2020-08-03] MEDS: lamoTRIgine 100 MG Tab PO SCH (08:46)
[2020-08-03] MEDS: Temazepam 15 MG Cap PO SCH (08:48)
[2020-08-03] MEDS: ARIPiprazole 10 MG Tab PO SCH (08:51)
[2020-08-03] MEDS: busPIRone 5 MG Tab PO SCH ×2 (08:52→20:47)
[2020-08-03] MEDS: Famotidine 20 MG Tab PO SCH ×2 (08:54→20:47)
[2020-08-03] MEDS ORDERED: AMLODIPINE BESYLATE PO SCH (09:00)
[2020-08-03] MEDS ORDERED: BENAZEPRIL PO SCH (09:00)
[2020-08-03] MEDS ORDERED: Torsemide 20 MG Tab PO SCH (09:00)
[2020-08-03] MEDS ORDERED: Metoprolol Succinate 25 MG Tab.ER PO SCH (09:00)
[2020-08-03] MEDS: Montelukast 10 MG Tab PO SCH (09:21)
[2020-08-03] MEDS: DESVENLAFAXINE SUCCINATE PO SCH (09:34)
--- NOTE | 2020-08-03 12:32 | PCM.PN ---
- General Info Date of Service: 08/03/20 Admission Dx/Problem (Free Text): Admission Diagnosis/Problem Admission Diagnosis/Problem Atrial fibrillation with rapid ventricular response Functional Status: Reports: Tolerating Diet, Ambulating, Urinating - Review of Systems General: Denies: Fever, Weakness, Fatigue Pulmonary: Denies: Shortness of Breath, Pleuritic Chest Pain Cardiovascular: Reports: Chest Pain (pressure), Palpitations. Denies: Dyspnea on Exertion Gastrointestinal: Denies: Abdominal Pain, Constipation, Decreased Appetite Genitourinary: Denies: Dysuria, Frequency, Burning Musculoskeletal: Denies: Neck Pain, Shoulder Pain Skin: Denies: Cyanosis, Jaundice, Mottled Neurological: Denies: Confusion, Dizziness - Patient Data Vitals - Most Recent: Last Vital Signs Temp 36.5 C 08/03/20 08:00 Pulse 90 08/03/20 08:49 Resp 16 08/03/20 09:00 BP 107/71 08/03/20 09:00 Pulse Ox 93 L 08/03/20 09:00 Weight - Most Recent: 90.764 kg I&O - Last 24 Hours: Intake & Output 08/02/20 08/03/20 08/03/20 22:59 06:59 14:59 Intake Total 480 Output Total 950 Balance -470 Lab Results Last 24 Hours: Laboratory Results - last 24 hr 08/02/20 08/02/20 08/02/20 Range/Units 19:00 19:00 19:00 WBC 8.55 (4.0-11.0) K/uL RBC 4.50 (4.30-5.90) M/uL Hgb 13.6 (12.0-16.0) g/dL Hct 41.2 (36.0-46.0) % MCV 91.6 (80.0-98.0) fL MCH 30.2 (27.0-32.0) pg MCHC 33.0 (31.0-37.0) g/dL RDW Std Deviation 44.0 (28.0-62.0) fl RDW Coeff of Ravi 13 (11.0-15.0) % Plt Count 281 (150-400) K/uL MPV 9.70 (7.40-12.00) fL Neut % (Auto) 45.3 L (48.0-80.0) % Lymph % (Auto) 43.7 H (16.0-40.0) % Desha % (Auto) 8.7 (0.0-15.0) % Eos % (Auto) 1.8 (0.0-7.0) % Baso % (Auto) 0.5 (0.0-1.5) % Neut # (Auto) 3.9 (1.4-5.7) K/uL Lymph # (Auto) 3.7 H (0.6-2.4) K/uL Desha # (Auto) 0.7 (0.0-0.8) K/uL Eos # (Auto) 0.2 (0.0-0.7) K/uL Baso # (Auto) 0.0 (0.0-0.1) K/uL INR D-Dimer, Quantitative 0.38 (0.0-0.50) mg/L FEU Sodium 140 (136-145) mmol/L Potassium 3.9 (3.5-5.1) mmol/L Chloride 104 (98-107) mmol/L Carbon Dioxide 23.9 (21.0-32.0) mmol/L BUN 19 H (7.0-18.0) mg/dL Creatinine 1.8 H (0.6-1.0) mg/dL Est Cr Clr Drug Dosing 32.32 mL/min Estimated GFR (MDRD) 28.7 ml/min Glucose 80 (74-106) mg/dL Calcium 9.2 (8.5-10.1) mg/dL Phosphorus 4.4 (2.6-4.7) mg/dL Magnesium 2.1 (1.8-2.4) mg/dL Total Bilirubin 0.2 (0.2-1.0) mg/dL AST 21 (15-37) IU/L ALT 36 (14-63) IU/L Alkaline Phosphatase 149 H (46-116) U/L Troponin I < 0.050 (0.000-0.056) ng/mL B-Natriuretic Peptide (<100) PG/ML Total Protein 8.1 (6.4-8.2) g/dL Albumin 4.4 (3.4-5.0) g/dL Globulin 3.7 (2.6-4.0) g/dL Albumin/Globulin Ratio 1.2 (0.9-1.6) TSH 3rd Generation 1.80 (0.36-3.74) uIU/mL Urine Color Urine Appearance Urine pH (5.0-8.0) Ur Specific Guston (1.001-1.035) Urine Protein (NEGATIVE) mg/dL Urine Glucose (UA) (NEGATIVE) mg/dL Urine Ketones (NEGATIVE) mg/dL Urine Occult Blood (NEGATIVE) Urine Nitrite (NEGATIVE) Urine Bilirubin (NEGATIVE) Urine Urobilinogen (<2.0) EU/dL Ur Leukocyte Esterase (NEGATIVE) SARS-CoV-2 RNA (CRISTOBAL) (NEGATIVE) 08/02/20 08/02/20 08/02/20 Range/Units 19:00 19:00 19:30 WBC (4.0-11.0) K/uL RBC (4.30-5.90) M/uL Hgb (12.0-16.0) g/dL Hct (36.0-46.0) % MCV (80.0-98.0) fL MCH (27.0-32.0) pg MCHC (31.0-37.0) g/dL RDW Std Deviation (28.0-62.0) fl RDW Coeff of Ravi (11.0-15.0) % Plt Count (150-400) K/uL MPV (7.40-12.00) fL Neut % (Auto) (48.0-80.0) % Lymph % (Auto) (16.0-40.0) % Desha % (Auto) (0.0-15.0) % Eos % (Auto) (0.0-7.0) % Baso % (Auto) (0.0-1.5) % Neut # (Auto) (1.4-5.7) K/uL Lymph # (Auto) (0.6-2.4) K/uL Desha # (Auto) (0.0-0.8) K/uL Eos # (Auto) (0.0-0.7) K/uL Baso # (Auto) (0.0-0.1) K/uL INR 1.16 D-Dimer, Quantitative (0.0-0.50) mg/L FEU Sodium (136-145) mmol/L Potassium (3.5-5.1) mmol/L Chloride (98-107) mmol/L Carbon Dioxide (21.0-32.0) mmol/L BUN (7.0-18.0) mg/dL Creatinine (0.6-1.0) mg/dL Est Cr Clr Drug Dosing mL/min Estimated GFR (MDRD) ml/min Glucose (74-106) mg/dL Calcium (8.5-10.1) mg/dL Phosphorus (2.6-4.7) mg/dL Magnesium (1.8-2.4) mg/dL Total Bilirubin (0.2-1.0) mg/dL AST (15-37) IU/L ALT (14-63) IU/L Alkaline Phosphatase (46-116) U/L Troponin I (0.000-0.056) ng/mL B-Natriuretic Peptide 79 (<100) PG/ML Total Protein (6.4-8.2) g/dL Albumin (3.4-5.0) g/dL Globulin (2.6-4.0) g/dL Albumin/Globulin Ratio (0.9-1.6) TSH 3rd Generation (0.36-3.74) uIU/mL Urine Color Urine Appearance Urine pH (5.0-8.0) Ur Specific Guston (1.001-1.035) Urine Protein (NEGATIVE) mg/dL Urine Glucose (UA) (NEGATIVE) mg/dL Urine Ketones (NEGATIVE) mg/dL Urine Occult Blood (NEGATIVE) Urine Nitrite (NEGATIVE) Urine Bilirubin (NEGATIVE) Urine Urobilinogen (<2.0) EU/dL Ur Leukocyte Esterase (NEGATIVE) SARS-CoV-2 RNA (CRISTOBAL) NEGATIVE (NEGATIVE) 08/02/20 08/02/20 08/03/20 Range/Units 20:25 22:15 02:00 WBC (4.0-11.0) K/uL RBC (4.30-5.90) M/uL Hgb (12.0-16.0) g/dL Hct (36.0-46.0) % MCV (80.0-98.0) fL MCH (27.0-32.0) pg MCHC (31.0-37.0) g/dL RDW Std Deviation (28.0-62.0) fl RDW Coeff of Ravi (11.0-15.0) % Plt Count (150-400) K/uL MPV (7.40-12.00) fL Neut % (Auto) (48.0-80.0) % Lymph % (Auto) (16.0-40.0) % Desha % (Auto) (0.0-15.0) % Eos % (Auto) (0.0-7.0) % Baso % (Auto) (0.0-1.5) % Neut # (Auto) (1.4-5.7) K/uL Lymph # (Auto) (0.6-2.4) K/uL Desha # (Auto) (0.0-0.8) K/uL Eos # (Auto) (0.0-0.7) K/uL Baso # (Auto) (0.0-0.1) K/uL INR D-Dimer, Quantitative (0.0-0.50) mg/L FEU Sodium (136-145) mmol/L Potassium (3.5-5.1) mmol/L Chloride (98-107) mmol/L Carbon Dioxide (21.0-32.0) mmol/L BUN (7.0-18.0) mg/dL Creatinine (0.6-1.0) mg/dL Est Cr Clr Drug Dosing mL/min Estimated GFR (MDRD) ml/min Glucose (74-106) mg/dL Calcium (8.5-10.1) mg/dL Phosphorus (2.6-4.7) mg/dL Magnesium (1.8-2.4) mg/dL Total Bilirubin (0.2-1.0) mg/dL AST (15-37) IU/L ALT (14-63) IU/L Alkaline Phosphatase (46-116) U/L Troponin I < 0.050 < 0.050 (0.000-0.056) ng/mL B-Natriuretic Peptide (<100) PG/ML Total Protein (6.4-8.2) g/dL Albumin (3.4-5.0) g/dL Globulin (2.6-4.0) g/dL Albumin/Globulin Ratio (0.9-1.6) TSH 3rd Generation (0.36-3.74) uIU/mL Urine Color YELLOW Urine Appearance CLEAR Urine pH 5.5 (5.0-8.0) Ur Specific Guston 1.025 (1.001-1.035) Urine Protein NEGATIVE (NEGATIVE) mg/dL Urine Glucose (UA) NEGATIVE (NEGATIVE) mg/dL Urine Ketones NEGATIVE (NEGATIVE) mg/dL Urine Occult Blood NEGATIVE (NEGATIVE) Urine Nitrite NEGATIVE (NEGATIVE) Urine Bilirubin NEGATIVE (NEGATIVE) Urine Urobilinogen 0.2 (<2.0) EU/dL Ur Leukocyte Esterase NEGATIVE (NEGATIVE) SARS-CoV-2 RNA (CRISTOBAL) (NEGATIVE) 08/03/20 08/03/20 Range/Units 06:00 06:00 WBC 4.41 (4.0-11.0) K/uL RBC 3.71 L (4.30-5.90) M/uL Hgb 11.3 L (12.0-16.0) g/dL Hct 34.2 L (36.0-46.0) % MCV 92.2 (80.0-98.0) fL MCH 30.5 (27.0-32.0) pg MCHC 33.0 (31.0-37.0) g/dL RDW Std Deviation 43.0 (28.0-62.0) fl RDW Coeff of Ravi 13 (11.0-15.0) % Plt Count 228 (150-400) K/uL MPV 9.70 (7.40-12.00) fL Neut % (Auto) 43.3 L (48.0-80.0) % Lymph % (Auto) 43.8 H (16.0-40.0) % Desha % (Auto) 9.5 (0.0-15.0) % Eos % (Auto) 2.7 (0.0-7.0) % Baso % (Auto) 0.7 (0.0-1.5) % Neut # (Auto) 1.9 (1.4-5.7) K/uL Lymph # (Auto) 1.9 (0.6-2.4) K/uL Desha # (Auto) 0.4 (0.0-0.8) K/uL Eos # (Auto) 0.1 (0.0-0.7) K/uL Baso # (Auto) 0.0 (0.0-0.1) K/uL INR D-Dimer, Quantitative (0.0-0.50) mg/L FEU Sodium 143 (136-145) mmol/L Potassium 3.4 L (3.5-5.1) mmol/L Chloride 107 (98-107) mmol/L Carbon Dioxide 24.6 (21.0-32.0) mmol/L BUN 17 (7.0-18.0) mg/dL Creatinine 1.3 H (0.6-1.0) mg/dL Est Cr Clr Drug Dosing 44.63 mL/min Estimated GFR (MDRD) 41.8 ml/min Glucose 96 (74-106) mg/dL Calcium 8.3 L (8.5-10.1) mg/dL Phosphorus 4.3 (2.6-4.7) mg/dL Magnesium 1.8 (1.8-2.4) mg/dL Total Bilirubin (0.2-1.0) mg/dL AST (15-37) IU/L ALT (14-63) IU/L Alkaline Phosphatase (46-116) U/L Troponin I (0.000-0.056) ng/mL B-Natriuretic Peptide (<100) PG/ML Total Protein (6.4-8.2) g/dL Albumin (3.4-5.0) g/dL Globulin (2.6-4.0) g/dL Albumin/Globulin Ratio (0.9-1.6) TSH 3rd Generation (0.36-3.74) uIU/mL Urine Color Urine Appearance Urine pH (5.0-8.0) Ur Specific Guston (1.001-1.035) Urine Protein (NEGATIVE) mg/dL Urine Glucose (UA) (NEGATIVE) mg/dL Urine Ketones (NEGATIVE) mg/dL Urine Occult Blood (NEGATIVE) Urine Nitrite (NEGATIVE) Urine Bilirubin (NEGATIVE) Urine Urobilinogen (<2.0) EU/dL Ur Leukocyte Esterase (NEGATIVE) SARS-CoV-2 RNA (CRISTOBAL) (NEGATIVE) Med Orders - Current: Current Medications Acetaminophen (Acetaminophen 325 Mg Tab) 650 mg PO Q4H PRN PRN Reason: Pain (Mild 1-3)/fever Albuterol/Ipratropium (Albuterol/Ipratropium 3.0-0.5 Mg/3 Ml Neb Soln) 3 ml NEB Q4HRRT PRN PRN Reason: Shortness Of Breath/wheezing Aripiprazole (Aripiprazole 10 Mg Tab) 15 mg PO DAILY [facility] Last Admin: 08/03/20 08:51 Dose: 15 mg Documented by: Buspirone HCl (Buspirone 5 Mg Tab) 30 mg PO BID [facility] Last Admin: 08/03/20 08:52 Dose: 30 mg Documented by: Diltiazem HCl (Diltiazem Ir 30 Mg Tab) 30 mg PO Q6HR [facility] Last Admin: 08/03/20 11:46 Dose: 30 mg Documented by: Famotidine (Famotidine 20 Mg Tab) 20 mg PO BID [facility] Last Admin: 08/03/20 08:54 Dose: 20 mg Documented by: Hydroxyzine Pamoate (Hydroxyzine Pamoate 25 Mg Cap) 50 mg PO BEDTIME PRN PRN Reason: Anxiety Last Admin: 08/02/20 23:07 Dose: 50 mg Documented by: Diltiazem HCl 100 mg/ Sodium (Chloride) 100 mls @ 5 mls/hr IV NOW [facility]; Protocol Last Titration: 08/03/20 03:00 Dose: 0 mg/hr, 0 mls/hr Documented by: Lactated Ringer's (Ringers, Lactated) 1,000 mls @ 125 mls/hr IV ASDIRECTED [facility] Last Admin: 08/02/20 23:20 Dose: 125 mls/hr Documented by: Lamotrigine (Lamotrigine 100 Mg Tab) 150 mg PO DAILY [facility] Last Admin: 08/03/20 08:46 Dose: 150 mg Documented by: Lorazepam (Lorazepam 0.5 Mg Tab) 0.5 mg PO DAILY PRN PRN Reason: ANXIETY Metoprolol Succinate (Metoprolol Succinate 25 Mg Tab.Er) 12.5 mg PO DAILY [facility] Last Admin: 08/03/20 08:49 Dose: 12.5 mg Documented by: Montelukast Sodium (Montelukast 10 Mg Tab) 10 mg PO DAILY [facility] Last Admin: 08/03/20 09:21 Dose: 10 mg Documented by: Ondansetron HCl (Ondansetron 4 Mg/2 Ml Sdv) 4 mg IVPUSH Q4H PRN PRN Reason: Nausea/Vomiting Pantoprazole Sodium (Pantoprazole 40 Mg Tab.Cr) 40 mg PO ACBREAKFAST [facility] Last Admin: 08/03/20 07:19 Dose: 40 mg Documented by: Desvenlafaxine Succinate [ Desvenlafaxine Succinate Er] 100 1 each PO DAILY [facility] Last Admin: 08/03/20 09:34 Dose: Not Given Documented by: Estazolam [Estazolam (] 2 Mg Tablet) 1 each PO BEDTIME PRN PRN Reason: Sleep Rivaroxaban (Rivaroxaban 10 Mg Tab) 20 mg PO DAILY [facility] Last Admin: 08/03/20 08:46 Dose: 20 mg Documented by: Sodium Chloride (Sodium Chloride 0.9% 10 Ml Syringe) 10 ml FLUSH ASDIRECTED PRN PRN Reason: Keep Vein Open Last Admin: 08/02/20 19:18 Dose: 10 ml Documented by: Sodium Chloride (Sodium Chloride 0.9% 2.5 Ml Syringe) 2.5 ml FLUSH ASDIRECTED PRN PRN Reason: Keep Vein Open Last Admin: 08/02/20 19:17 Dose: 2.5 ml Documented by: Temazepam (Temazepam 15 Mg Cap) 15 mg PO DAILY [facility] Last Admin: 08/03/20 08:48 Dose: 15 mg Documented by: Trazodone HCl (Trazodone 50 Mg Tab) 200 mg PO BEDTIME [facility] Last Admin: 08/02/20 23:07 Dose: 200 mg Documented by: Discontinued Medications Diltiazem HCl (Diltiazem 25 Mg/5 Ml Sdv) 20 mg IVPUSH ONETIME ONE Stop: 08/02/20 19:16 Last Admin: 08/02/20 19:29 Dose: 20 mg Documented by: Diltiazem HCl (Diltiazem Ir 60 Mg Tab) 60 mg PO ONETIME ONE Stop: 08/03/20 04:01 Sodium Chloride (Normal Saline) 1,000 mls @ 999 mls/hr IV .Bolus ONE Stop: 08/02/20 20:13 Last Admin: 08/02/20 19:17 Dose: 999 mls/hr Documented by: Magnesium Oxide (Magnesium Oxide 400 Mg Tab) 800 mg PO ONETIME ONE Stop: 08/03/20 08:31 Last Admin: 08/03/20 08:53 Dose: 800 mg Documented by: Potassium Chloride (Potassium Chloride 10% 20 Meq/15 Ml Soln 30 Ml Ud Cup) 40 meq PO ONETIME ONE Stop: 08/03/20 08:36 Last Admin: 08/03/20 08:53 Dose: 40 meq Documented by: Torsemide (Torsemide 20 Mg Tab) 10 mg PO DAILY [facility] Last Admin: 08/03/20 08:53 Dose: 10 mg Documented by: Trazodone HCl (Trazodone Hcl 100 Mg Tab) 200 mg PO BEDTIME [facility] - Exam General: Alert Neck: Supple Lungs: Clear to Auscultation, Normal Respiratory Effort Cardiovascular: Irregular Rhythm, Tachycardia GI/Abdominal Exam: Normal Bowel Sounds, Soft, Non-Tender Back Exam: Normal Inspection, Full Range of Motion Extremities: Normal Inspection, Normal Range of Motion. No: Pedal Edema - Patient Data Lab Results Last 24 hrs: Laboratory Results - last 24 hr 08/02/20 08/02/20 08/02/20 Range/Units 19:00 19:00 19:00 WBC 8.55 (4.0-11.0) K/uL RBC 4.50 (4.30-5.90) M/uL Hgb 13.6 (12.0-16.0) g/dL Hct 41.2 (36.0-46.0) % MCV 91.6 (80.0-98.0) fL MCH 30.2 (27.0-32.0) pg MCHC 33.0 (31.0-37.0) g/dL RDW Std Deviation 44.0 (28.0-62.0) fl RDW Coeff of Ravi 13 (11.0-15.0) % Plt Count 281 (150-400) K/uL MPV 9.70 (7.40-12.00) fL Neut % (Auto) 45.3 L (48.0-80.0) % Lymph % (Auto) 43.7 H (16.0-40.0) % Desha % (Auto) 8.7 (0.0-15.0) % Eos % (Auto) 1.8 (0.0-7.0) % Baso % (Auto) 0.5 (0.0-1.5) % Neut # (Auto) 3.9 (1.4-5.7) K/uL Lymph # (Auto) 3.7 H (0.6-2.4) K/uL Desha # (Auto) 0.7 (0.0-0.8) K/uL Eos # (Auto) 0.2 (0.0-0.7) K/uL Baso # (Auto) 0.0 (0.0-0.1) K/uL INR D-Dimer, Quantitative 0.38 (0.0-0.50) mg/L FEU Sodium 140 (136-145) mmol/L Potassium 3.9 (3.5-5.1) mmol/L Chloride 104 (98-107) mmol/L Carbon Dioxide 23.9 (21.0-32.0) mmol/L BUN 19 H (7.0-18.0) mg/dL Creatinine 1.8 H (0.6-1.0) mg/dL Est Cr Clr Drug Dosing 32.32 mL/min Estimated GFR (MDRD) 28.7 ml/min Glucose 80 (74-106) mg/dL Calcium 9.2 (8.5-10.1) mg/dL Phosphorus 4.4 (2.6-4.7) mg/dL Magnesium 2.1 (1.8-2.4) mg/dL Total Bilirubin 0.2 (0.2-1.0) mg/dL AST 21 (15-37) IU/L ALT 36 (14-63) IU/L Alkaline Phosphatase 149 H (46-116) U/L Troponin I < 0.050 (0.000-0.056) ng/mL B-Natriuretic Peptide (<100) PG/ML Total Protein 8.1 (6.4-8.2) g/dL Albumin 4.4 (3.4-5.0) g/dL Globulin 3.7 (2.6-4.0) g/dL Albumin/Globulin Ratio 1.2 (0.9-1.6) TSH 3rd Generation 1.80 (0.36-3.74) uIU/mL Urine Color Urine Appearance Urine pH (5.0-8.0) Ur Specific Guston (1.001-1.035) Urine Protein (NEGATIVE) mg/dL Urine Glucose (UA) (NEGATIVE) mg/dL Urine Ketones (NEGATIVE) mg/dL Urine Occult Blood (NEGATIVE) Urine Nitrite (NEGATIVE) Urine Bilirubin (NEGATIVE) Urine Urobilinogen (<2.0) EU/dL Ur Leukocyte Esterase (NEGATIVE) SARS-CoV-2 RNA (CRISTOBAL) (NEGATIVE) 08/02/20 08/02/20 08/02/20 Range/Units 19:00 19:00 19:30 WBC (4.0-11.0) K/uL RBC (4.30-5.90) M/uL Hgb (12.0-16.0) g/dL Hct (36.0-46.0) % MCV (80.0-98.0) fL MCH (27.0-32.0) pg MCHC (31.0-37.0) g/dL RDW Std Deviation (28.0-62.0) fl RDW Coeff of Ravi (11.0-15.0) % Plt Count (150-400) K/uL MPV (7.40-12.00) fL Neut % (Auto) (48.0-80.0) % Lymph % (Auto) (16.0-40.0) % Desha % (Auto) (0.0-15.0) % Eos % (Auto) (0.0-7.0) % Baso % (Auto) (0.0-1.5) % Neut # (Auto) (1.4-5.7) K/uL Lymph # (Auto) (0.6-2.4) K/uL Desha # (Auto) (0.0-0.8) K/uL Eos # (Auto) (0.0-0.7) K/uL Baso # (Auto) (0.0-0.1) K/uL INR 1.16 D-Dimer, Quantitative (0.0-0.50) mg/L FEU Sodium (136-145) mmol/L Potassium (3.5-5.1) mmol/L Chloride (98-107) mmol/L Carbon Dioxide (21.0-32.0) mmol/L BUN (7.0-18.0) mg/dL Creatinine (0.6-1.0) mg/dL Est Cr Clr Drug Dosing mL/min Estimated GFR (MDRD) ml/min Glucose (74-106) mg/dL Calcium (8.5-10.1) mg/dL Phosphorus (2.6-4.7) mg/dL Magnesium (1.8-2.4) mg/dL Total Bilirubin (0.2-1.0) mg/dL AST (15-37) IU/L ALT (14-63) IU/L Alkaline Phosphatase (46-116) U/L Troponin I (0.000-0.056) ng/mL B-Natriuretic Peptide 79 (<100) PG/ML Total Protein (6.4-8.2) g/dL Albumin (3.4-5.0) g/dL Globulin (2.6-4.0) g/dL Albumin/Globulin Ratio (0.9-1.6) TSH 3rd Generation (0.36-3.74) uIU/mL Urine Color Urine Appearance Urine pH (5.0-8.0) Ur Specific Guston (1.001-1.035) Urine Protein (NEGATIVE) mg/dL Urine Glucose (UA) (NEGATIVE) mg/dL Urine Ketones (NEGATIVE) mg/dL Urine Occult Blood (NEGATIVE) Urine Nitrite (NEGATIVE) Urine Bilirubin (NEGATIVE) Urine Urobilinogen (<2.0) EU/dL Ur Leukocyte Esterase (NEGATIVE) SARS-CoV-2 RNA (CRISTOBAL) NEGATIVE (NEGATIVE) 08/02/20 08/02/20 08/03/20 Range/Units 20:25 22:15 02:00 WBC (4.0-11.0) K/uL RBC (4.30-5.90) M/uL Hgb (12.0-16.0) g/dL Hct (36.0-46.0) % MCV (80.0-98.0) fL MCH (27.0-32.0) pg MCHC (31.0-37.0) g/dL RDW Std Deviation (28.0-62.0) fl RDW Coeff of Ravi (11.0-15.0) % Plt Count (150-400) K/uL MPV (7.40-12.00) fL Neut % (Auto) (48.0-80.0) % Lymph % (Auto) (16.0-40.0) % Desha % (Auto) (0.0-15.0) % Eos % (Auto) (0.0-7.0) % Baso % (Auto) (0.0-1.5) % Neut # (Auto) (1.4-5.7) K/uL Lymph # (Auto) (0.6-2.4) K/uL Desha # (Auto) (0.0-0.8) K/uL Eos # (Auto) (0.0-0.7) K/uL Baso # (Auto) (0.0-0.1) K/uL INR D-Dimer, Quantitative (0.0-0.50) mg/L FEU Sodium (136-145) mmol/L Potassium (3.5-5.1) mmol/L Chloride (98-107) mmol/L Carbon Dioxide (21.0-32.0) mmol/L BUN (7.0-18.0) mg/dL Creatinine (0.6-1.0) mg/dL Est Cr Clr Drug Dosing mL/min Estimated GFR (MDRD) ml/min Glucose (74-106) mg/dL Calcium (8.5-10.1) mg/dL Phosphorus (2.6-4.7) mg/dL Magnesium (1.8-2.4) mg/dL Total Bilirubin (0.2-1.0) mg/dL AST (15-37) IU/L ALT (14-63) IU/L Alkaline Phosphatase (46-116) U/L Troponin I < 0.050 < 0.050 (0.000-0.056) ng/mL B-Natriuretic Peptide (<100) PG/ML Total Protein (6.4-8.2) g/dL Albumin (3.4-5.0) g/dL Globulin (2.6-4.0) g/dL Albumin/Globulin Ratio (0.9-1.6) TSH 3rd Generation (0.36-3.74) uIU/mL Urine Color YELLOW Urine Appearance CLEAR Urine pH 5.5 (5.0-8.0) Ur Specific Guston 1.025 (1.001-1.035) Urine Protein NEGATIVE (NEGATIVE) mg/dL Urine Glucose (UA) NEGATIVE (NEGATIVE) mg/dL Urine Ketones NEGATIVE (NEGATIVE) mg/dL Urine Occult Blood NEGATIVE (NEGATIVE) Urine Nitrite NEGATIVE (NEGATIVE) Urine Bilirubin NEGATIVE (NEGATIVE) Urine Urobilinogen 0.2 (<2.0) EU/dL Ur Leukocyte Esterase NEGATIVE (NEGATIVE) SARS-CoV-2 RNA (CRISTOBAL) (NEGATIVE) 08/03/20 08/03/20 Range/Units 06:00 06:00 WBC 4.41 (4.0-11.0) K/uL RBC 3.71 L (4.30-5.90) M/uL Hgb 11.3 L (12.0-16.0) g/dL Hct 34.2 L (36.0-46.0) % MCV 92.2 (80.0-98.0) fL MCH 30.5 (27.0-32.0) pg MCHC 33.0 (31.0-37.0) g/dL RDW Std Deviation 43.0 (28.0-62.0) fl RDW Coeff of Ravi 13 (11.0-15.0) % Plt Count 228 (150-400) K/uL MPV 9.70 (7.40-12.00) fL Neut % (Auto) 43.3 L (48.0-80.0) % Lymph % (Auto) 43.8 H (16.0-40.0) % Desha % (Auto) 9.5 (0.0-15.0) % Eos % (Auto) 2.7 (0.0-7.0) % Baso % (Auto) 0.7 (0.0-1.5) % Neut # (Auto) 1.9 (1.4-5.7) K/uL Lymph # (Auto) 1.9 (0.6-2.4) K/uL Desha # (Auto) 0.4 (0.0-0.8) K/uL Eos # (Auto) 0.1 (0.0-0.7) K/uL Baso # (Auto) 0.0 (0.0-0.1) K/uL INR D-Dimer, Quantitative (0.0-0.50) mg/L FEU Sodium 143 (136-145) mmol/L Potassium 3.4 L (3.5-5.1) mmol/L Chloride 107 (98-107) mmol/L Carbon Dioxide 24.6 (21.0-32.0) mmol/L BUN 17 (7.0-18.0) mg/dL Creatinine 1.3 H (0.6-1.0) mg/dL Est Cr Clr Drug Dosing 44.63 mL/min Estimated GFR (MDRD) 41.8 ml/min Glucose 96 (74-106) mg/dL Calcium 8.3 L (8.5-10.1) mg/dL Phosphorus 4.3 (2.6-4.7) mg/dL Magnesium 1.8 (1.8-2.4) mg/dL Total Bilirubin (0.2-1.0) mg/dL AST (15-37) IU/L ALT (14-63) IU/L Alkaline Phosphatase (46-116) U/L Troponin I (0.000-0.056) ng/mL B-Natriuretic Peptide (<100) PG/ML Total Protein (6.4-8.2) g/dL Albumin (3.4-5.0) g/dL Globulin (2.6-4.0) g/dL Albumin/Globulin Ratio (0.9-1.6) TSH 3rd Generation (0.36-3.74) uIU/mL Urine Color Urine Appearance Urine pH (5.0-8.0) Ur Specific Guston (1.001-1.035) Urine Protein (NEGATIVE) mg/dL Urine Glucose (UA) (NEGATIVE) mg/dL Urine Ketones (NEGATIVE) mg/dL Urine Occult Blood (NEGATIVE) Urine Nitrite (NEGATIVE) Urine Bilirubin (NEGATIVE) Urine Urobilinogen (<2.0) EU/dL Ur Leukocyte Esterase (NEGATIVE) SARS-CoV-2 RNA (CRISTOBAL) (NEGATIVE) Result Diagrams: 08/03/20 06:00 08/03/20 06:00 Sepsis Event Note - Evaluation Sepsis Screening Result: No Definite Risk - Focused Exam Vital Signs: Vital Signs Temp Pulse Resp BP BP Pulse Ox 08/03/20 09:00 16 107/71 93 L 08/03/20 08:49 90 107/71 08/03/20 08:00 36.5 C 19 107/56 L 94 L 08/03/20 07:00 14 95/59 L 94 L 08/03/20 06:00 14 96/74 96 08/03/20 05:00 14 102/72 95 08/03/20 04:00 36.6 C 15 96/63 94 L 08/03/20 03:34 96/62 08/03/20 03:24 97/59 L 08/03/20 03:15 94/54 L 08/03/20 03:05 95/61 08/03/20 03:00 14 89/48 L 94 L 08/03/20 02:00 13 110/71 96 08/03/20 01:00 14 116/73 95 - Problem List & Annotations (1) Atrial fibrillation with rapid ventricular response SNOMED Code(s): 220436833665031 Code(s): I48.91 - UNSPECIFIED ATRIAL FIBRILLATION Status: Acute Current Visit: Yes (2) Anxiety SNOMED Code(s): 24850069 Code(s): F41.9 - ANXIETY DISORDER, UNSPECIFIED Status: Acute Current Visit: No (3) CKD (chronic kidney disease) SNOMED Code(s): 049516110 Code(s): N18.9 - CHRONIC KIDNEY DISEASE, UNSPECIFIED Status: Acute Cur rent Visit: Yes - Problem List Review Problem List Initiated/Reviewed/Updated: Yes - My Orders Last 24 Hours: My Active Orders 08/02/20 Dinner Heart Healthy Diet [DIET] 08/02/20 21:07 Ambulate [RC] ASDIRECTED Acetaminophen [TylenoL] 650 mg PO Q4H PRN Albuterol/Ipratropium [DuoNeb 3.0-0.5 MG/3 ML] 3 ml NEB Q4HRRT PRN Ondansetron [Zofran] 4 mg IVPUSH Q4H PRN 08/02/20 21:08 Antiembolic Devices [RC] PER UNIT ROUTINE Oxygen Therapy [RC] PRN VTE/DVT Education [RC] PER UNIT ROUTINE Vital Signs [RC] Q4H Sequential Compression Device [OM.PC] Per Unit Routine 08/02/20 21:09 RT Aerosol Therapy [RC] ASDIRECTED 08/02/20 21:15 Lactated Ringers [Ringers, Lactated] 1,000 ml IV ASDIRECTED 08/02/20 22:22 Patient's Own Medication [Ptom] 1 each PO BEDTIME PRN hydrOXYzine pamoate [Vistaril] 50 mg PO BEDTIME PRN 08/02/20 22:30 Famotidine [Pepcid] 20 mg PO BID 08/02/20 22:34 LORazepam [Ativan] 0.5 mg PO DAILY PRN 08/02/20 22:45 busPIRone [Buspar] 30 mg PO BID 08/02/20 23:00 traZODone 200 mg PO BEDTIME 08/03/20 04:00 Diltiazem IR [Cardizem] 30 mg PO Q6HR 08/03/20 07:30 Pantoprazole [ProTONIX] 40 mg PO ACBREAKFAST 08/03/20 09:00 ARIPiprazole [Abilify] 15 mg PO DAILY Metoprolol Succinate [Toprol XL] 12.5 mg PO DAILY Montelukast [Singulair] 10 mg PO DAILY Patient's Own Medication [Ptom] 1 each PO DAILY Rivaroxaban [Xarelto] 20 mg PO DAILY Temazepam [Restoril] 15 mg PO DAILY lamoTRIgine 150 mg PO DAILY - Plan Plan:: 60 y/o F admitted for afib rvr Unsure of trigger, looks bit dehydrated on exam Troponins have been negative has been weaned off Cardizem gtt cont oral Cardizem, will start on Cardizem 180mg PO daily cont Xarelto will dc metoprolol dc fluids cont home meds as appropriate Dr Vega cardiology updated, recommended adding digoxin if heart rate isnt well controlled on Cardizem alone
[2020-08-03] MEDS ORDERED: Diltiazem 180 MG Cap.CD PO SCH (12:45)
[2020-08-03] MEDS: Diltiazem 180 MG Cap.CD PO SCH (16:58)
[2020-08-03] MEDS: LORazepam 0.5 MG Tab PO PRN (19:29)
[2020-08-03] MEDS: traZODone 50 MG Tab PO SCH (20:47)
[2020-08-04 05:25] LABS: CARBON DIOXIDE,CO2 24.5 mmol/L (21.0-32.0); POTASSIUM,K 3.7 mmol/L (3.5-5.1)
[2020-08-04] MEDS: Pantoprazole 40 MG Tab.CR PO SCH (08:08)
[2020-08-04] MEDS: Diltiazem 180 MG Cap.CD PO SCH (08:09)
[2020-08-04] MEDS: ARIPiprazole 10 MG Tab PO SCH (08:10)
[2020-08-04] MEDS: Montelukast 10 MG Tab PO SCH (08:11)
[2020-08-04] MEDS: Temazepam 15 MG Cap PO SCH (08:11)
[2020-08-04] MEDS: lamoTRIgine 100 MG Tab PO SCH (08:12)
[2020-08-04] MEDS: Rivaroxaban 10 MG Tab PO SCH (08:13)
[2020-08-04] MEDS: busPIRone 5 MG Tab PO SCH ×2 (08:14→21:02)
[2020-08-04] MEDS: Famotidine 20 MG Tab PO SCH ×2 (08:14→21:02)
[2020-08-04] MEDS: DESVENLAFAXINE SUCCINATE PO SCH (08:16)
[2020-08-04] MEDS ORDERED: Torsemide 20 MG Tab PO ONE (14:41)
--- NOTE | 2020-08-04 14:46 | PCM.PN ---
- General Info Date of Service: 08/04/20 - Review of Systems Systems Review Comment:: patient reports palpitations with any exertion, she reports swelling of feet at night - Patient Data Vitals - Most Recent: Last Vital Signs Temp 36.5 C 08/04/20 11:00 Pulse 158 H 08/04/20 06:06 Resp 16 08/04/20 14:00 BP 92/61 08/04/20 14:00 Pulse Ox 95 08/04/20 14:00 Weight - Most Recent: 90.401 kg I&O - Last 24 Hours: Intake & Output 08/03/20 08/04/20 08/04/20 22:59 06:59 14:59 Output Total 300 Balance -300 Lab Results Last 24 Hours: Laboratory Results - last 24 hr 08/04/20 08/04/20 Range/Units 04:55 04:55 WBC 5.39 (4.0-11.0) K/uL RBC 4.28 L (4.30-5.90) M/uL Hgb 12.7 (12.0-16.0) g/dL Hct 39.8 (36.0-46.0) % MCV 93.0 (80.0-98.0) fL MCH 29.7 (27.0-32.0) pg MCHC 31.9 (31.0-37.0) g/dL RDW Std Deviation 45.8 (28.0-62.0) fl RDW Coeff of Ravi 14 (11.0-15.0) % Plt Count 258 (150-400) K/uL MPV 9.90 (7.40-12.00) fL Neut % (Auto) 49.1 (48.0-80.0) % Lymph % (Auto) 38.6 (16.0-40.0) % [place] % (Auto) 8.2 (0.0-15.0) % Eos % (Auto) 3.5 (0.0-7.0) % Baso % (Auto) 0.6 (0.0-1.5) % Neut # (Auto) 2.7 (1.4-5.7) K/uL Lymph # (Auto) 2.1 (0.6-2.4) K/uL [place] # (Auto) 0.4 (0.0-0.8) K/uL Eos # (Auto) 0.2 (0.0-0.7) K/uL Baso # (Auto) 0.0 (0.0-0.1) K/uL Nucleated RBC % 0.0 /100WBC Nucleated RBCs # 0 K/uL Sodium 142 (136-145) mmol/L Potassium 3.7 (3.5-5.1) mmol/L Chloride 107 (98-107) mmol/L Carbon Dioxide 24.5 (21.0-32.0) mmol/L BUN 17 (7.0-18.0) mg/dL Creatinine 1.3 H (0.6-1.0) mg/dL Est Cr Clr Drug Dosing 44.63 mL/min Estimated GFR (MDRD) 41.8 ml/min Glucose 99 (74-106) mg/dL Calcium 8.7 (8.5-10.1) mg/dL Phosphorus 4.5 (2.6-4.7) mg/dL Magnesium 2.1 (1.8-2.4) mg/dL Med Orders - Current: Current Medications Acetaminophen (Acetaminophen 325 Mg Tab) 650 mg PO Q4H PRN PRN Reason: Pain (Mild 1-3)/fever Albuterol/Ipratropium (Albuterol/Ipratropium 3.0-0.5 Mg/3 Ml Neb Soln) 3 ml NEB Q4HRRT PRN PRN Reason: Shortness Of Breath/wheezing Aripiprazole (Aripiprazole 10 Mg Tab) 15 mg PO DAILY [facility] Last Admin: 08/04/20 08:10 Dose: 15 mg Documented by: Buspirone HCl (Buspirone 5 Mg Tab) 30 mg PO BID [facility] Last Admin: 08/04/20 08:14 Dose: 30 mg Documented by: Digoxin (Digoxin 500 Mcg/2 Ml Amp) 250 mcg IVPUSH Q6H [facility] Stop: 08/04/20 20:46 Diltiazem HCl (Diltiazem 180 Mg Cap.Cd) 180 mg PO DAILY [facility] Last Admin: 08/04/20 08:09 Dose: 180 mg Documented by: Famotidine (Famotidine 20 Mg Tab) 20 mg PO BID [facility] Last Admin: 08/04/20 08:14 Dose: 20 mg Documented by: Hydroxyzine Pamoate (Hydroxyzine Pamoate 25 Mg Cap) 50 mg PO BEDTIME PRN PRN Reason: Anxiety Last Admin: 08/02/20 23:07 Dose: 50 mg Documented by: Lamotrigine (Lamotrigine 100 Mg Tab) 150 mg PO DAILY [facility] Last Admin: 08/04/20 08:12 Dose: 150 mg Documented by: Lorazepam (Lorazepam 0.5 Mg Tab) 0.5 mg PO DAILY PRN PRN Reason: ANXIETY Last Admin: 08/03/20 19:29 Dose: 0.5 mg Documented by: Montelukast Sodium (Montelukast 10 Mg Tab) 10 mg PO DAILY [facility] Last Admin: 08/04/20 08:11 Dose: 10 mg Documented by: Ondansetron HCl (Ondansetron 4 Mg/2 Ml Sdv) 4 mg IVPUSH Q4H PRN PRN Reason: Nausea/Vomiting Pantoprazole Sodium (Pantoprazole 40 Mg Tab.Cr) 40 mg PO ACBREAKFAST [facility] Last Admin: 08/04/20 08:08 Dose: 40 mg Documented by: Desvenlafaxine Succinate [ Desvenlafaxine Succinate Er] 100 1 each PO DAILY [facility] Last Admin: 08/04/20 08:16 Dose: Not Given Documented by: Estazolam [Estazolam (] 2 Mg Tablet) 1 each PO BEDTIME PRN PRN Reason: Sleep Rivaroxaban (Rivaroxaban 10 Mg Tab) 20 mg PO DAILY [facility] Last Admin: 08/04/20 08:13 Dose: 20 mg Documented by: Sodium Chloride (Sodium Chloride 0.9% 10 Ml Syringe) 10 ml FLUSH ASDIRECTED PRN PRN Reason: Keep Vein Open Last Admin: 08/02/20 19:18 Dose: 10 ml Documented by: Sodium Chloride (Sodium Chloride 0.9% 2.5 Ml Syringe) 2.5 ml FLUSH ASDIRECTED PRN PRN Reason: Keep Vein Open Last Admin: 08/02/20 19:17 Dose: 2.5 ml Documented by: Temazepam (Temazepam 15 Mg Cap) 15 mg PO DAILY [facility] Last Admin: 08/04/20 08:11 Dose: 15 mg Documented by: Torsemide (Torsemide 20 Mg Tab) 10 mg PO ONETIME ONE Stop: 08/04/20 14:42 Trazodone HCl (Trazodone 50 Mg Tab) 200 mg PO BEDTIME [facility] Last Admin: 08/03/20 20:47 Dose: 200 mg Documented by: Discontinued Medications Diltiazem HCl (Diltiazem 25 Mg/5 Ml Sdv) 20 mg IVPUSH ONETIME ONE Stop: 08/02/20 19:16 Last Admin: 08/02/20 19:29 Dose: 20 mg Documented by: Diltiazem HCl (Diltiazem Ir 60 Mg Tab) 60 mg PO ONETIME ONE Stop: 08/03/20 04:01 Diltiazem HCl (Diltiazem Ir 30 Mg Tab) 30 mg PO Q6HR [facility] Last Admin: 08/03/20 11:46 Dose: 30 mg Documented by: Diltiazem HCl (Diltiazem 180 Mg Cap.Cd) 180 mg PO DAILY [facility] Sodium Chloride (Normal Saline) 1,000 mls @ 999 mls/hr IV .Bolus ONE Stop: 08/02/20 20:13 Last Admin: 08/02/20 19:17 Dose: 999 mls/hr Documented by: Diltiazem HCl 100 mg/ Sodium (Chloride) 100 mls @ 5 mls/hr IV NOW [facility]; Protocol Last Titration: 08/03/20 03:00 Dose: 0 mg/hr, 0 mls/hr Documented by: Lactated Ringer's (Ringers, Lactated) 1,000 mls @ 125 mls/hr IV ASDIRECTED [facility] Last Admin: 08/02/20 23:20 Dose: 125 mls/hr Documented by: Magnesium Oxide (Magnesium Oxide 400 Mg Tab) 800 mg PO ONETIME ONE Stop: 08/03/20 08:31 Last Admin: 08/03/20 08:53 Dose: 800 mg Documented by: Metoprolol Succinate (Metoprolol Succinate 25 Mg Tab.Er) 12.5 mg PO DAILY [facility] Last Admin: 08/03/20 08:49 Dose: 12.5 mg Documented by: Potassium Chloride (Potassium Chloride 10% 20 Meq/15 Ml Soln 30 Ml Ud Cup) 40 meq PO ONETIME ONE Stop: 08/03/20 08:36 Last Admin: 08/03/20 08:53 Dose: 40 meq Documented by: Torsemide (Torsemide 20 Mg Tab) 10 mg PO DAILY [facility] Last Admin: 08/03/20 08:53 Dose: 10 mg Documented by: Trazodone HCl (Trazodone Hcl 100 Mg Tab) 200 mg PO BEDTIME [facility] - Exam General: Alert, Oriented Lungs: Clear to Auscultation, Normal Respiratory Effort Cardiovascular: Regular Rate, Regular Rhythm GI/Abdominal Exam: Soft, Non-Tender Extremities: Non-Tender, No Pedal Edema Skin: Warm, Dry, Intact Neurological: No New Focal Deficit - Patient Data Lab Results Last 24 hrs: Laboratory Results - last 24 hr 08/04/20 08/04/20 Range/Units 04:55 04:55 WBC 5.39 (4.0-11.0) K/uL RBC 4.28 L (4.30-5.90) M/uL Hgb 12.7 (12.0-16.0) g/dL Hct 39.8 (36.0-46.0) % MCV 93.0 (80.0-98.0) fL MCH 29.7 (27.0-32.0) pg MCHC 31.9 (31.0-37.0) g/dL RDW Std Deviation 45.8 (28.0-62.0) fl RDW Coeff of Ravi 14 (11.0-15.0) % Plt Count 258 (150-400) K/uL MPV 9.90 (7.40-12.00) fL Neut % (Auto) 49.1 (48.0-80.0) % Lymph % (Auto) 38.6 (16.0-40.0) % [place] % (Auto) 8.2 (0.0-15.0) % Eos % (Auto) 3.5 (0.0-7.0) % Baso % (Auto) 0.6 (0.0-1.5) % Neut # (Auto) 2.7 (1.4-5.7) K/uL Lymph # (Auto) 2.1 (0.6-2.4) K/uL [place] # (Auto) 0.4 (0.0-0.8) K/uL Eos # (Auto) 0.2 (0.0-0.7) K/uL Baso # (Auto) 0.0 (0.0-0.1) K/uL Nucleated RBC % 0.0 /100WBC Nucleated RBCs # 0 K/uL Sodium 142 (136-145) mmol/L Potassium 3.7 (3.5-5.1) mmol/L Chloride 107 (98-107) mmol/L Carbon Dioxide 24.5 (21.0-32.0) mmol/L BUN 17 (7.0-18.0) mg/dL Creatinine 1.3 H (0.6-1.0) mg/dL Est Cr Clr Drug Dosing 44.63 mL/min Estimated GFR (MDRD) 41.8 ml/min Glucose 99 (74-106) mg/dL Calcium 8.7 (8.5-10.1) mg/dL Phosphorus 4.5 (2.6-4.7) mg/dL Magnesium 2.1 (1.8-2.4) mg/dL Result Diagrams: 08/04/20 04:55 08/04/20 04:55 Sepsis Event Note - Evaluation Sepsis Screening Result: No Definite Risk - Focused Exam Vital Signs: Vital Signs Temp Pulse Resp BP Pulse Ox 08/04/20 14:00 16 92/61 95 08/04/20 13:00 18 100/64 95 08/04/20 12:00 20 99/78 94 L 08/04/20 11:00 36.5 C 15 93/68 92 L 08/04/20 10:00 19 93/66 92 L 08/04/20 09:00 16 91/58 L 94 L 08/04/20 08:00 36.3 C 19 113/62 98 08/04/20 07:00 13 106/71 96 08/04/20 06:06 158 H 27 H 101/75 95 08/04/20 05:06 96 15 89/49 L 94 L 08/04/20 03:06 36.2 C 18 90/61 96 - Problem List Review Problem List Initiated/Reviewed/Updated: Yes - My Orders Last 24 Hours: My Active Orders 08/04/20 14:41 Torsemide [Demadex] 10 mg PO ONETIME ONE 08/04/20 14:42 Admission Status [Patient Status] [ADT] Routine 08/04/20 14:45 Digoxin [Lanoxin] 250 mcg IVPUSH Q6H 08/05/20 05:11 BASIC METABOLIC PANEL,BMP [CHEM] AM CBC WITH AUTO DIFF [HEME] AM MAGNESIUM [CHEM] AM - Plan Plan:: 60 y/o F admitted for afib rvr. HR 80s-120s, still having significant symptoms with exercise. We will continue Cardizem orally and start loading digoxin. We will continue Xarelto.
[2020-08-04] MEDS: Digoxin 500 MCG/2 ML Amp IVPUSH SCH ×2 (15:24→21:20)
--- NOTE | 2020-08-04 15:49 | PN ---
THC Physician - Brief Progress [id number]/18/2021 15:48[facility] Mervin Marquis, [place] - MWN (KRISTIN) - MWN CARLOS BOOTHDate of Service 08/04/2020 15:48HPI/Events of Note eICU Admission [id number] admitted for afib RVR. History obtained from review of EMR.PMH: afib, HTN, HPI: Patient was originally admitted on 08/02 for afib RVR for which she was managed with a dil tiazem drip. She was transitioned to oral diltiazem - due to continued tachycardia a digoxin load was started by primary service.Camera exam: Laying in bed. Vitals monitor reviewed. eICU Recommendations :For rate control, recommend target rate of <110bpm. Defer choice of rate control agent to bedside, w e are available to comment as desiredTarget Mg > 2, K>4Continuous telemetry monitoringContinue antico agulationShould patient become unstable, recommend synchronized cardioversion (we are available to as sist with this if desired).DVT and GI prophylaxis as appropriate.Thank you for allowing us to partici hernandez in the care of this patient.Unless otherwise specified, defer implementation of above recommenda tions to discretion of bedside provider. Please do not hesitate to contact the eICU service for quest ions, clarification, or assistance with implementation.The above note transcribed with the assistance of dictation software. Please excuse any errors.Interventions Major-Arrhythmia - evaluation and mariana gement
[2020-08-04] MEDS ORDERED: LORazepam 1 MG Tab PO ONE (20:00)
[2020-08-04] MEDS: traZODone 50 MG Tab PO SCH (21:02)
[2020-08-05 06:21] LABS: CARBON DIOXIDE,CO2 27.7 mmol/L (21.0-32.0)
[2020-08-05] MEDS: Pantoprazole 40 MG Tab.CR PO SCH (07:58)
[2020-08-05] MEDS: Rivaroxaban 10 MG Tab PO SCH (08:01)
[2020-08-05] MEDS: Famotidine 20 MG Tab PO SCH ×2 (08:01→21:09)
[2020-08-05] MEDS: Temazepam 15 MG Cap PO SCH (08:02)
[2020-08-05] MEDS: Diltiazem 180 MG Cap.CD PO SCH (08:02)
[2020-08-05] MEDS: ARIPiprazole 10 MG Tab PO SCH (08:02)
[2020-08-05] MEDS: lamoTRIgine 100 MG Tab PO SCH (08:03)
[2020-08-05] MEDS: Montelukast 10 MG Tab PO SCH (08:04)
[2020-08-05] MEDS: busPIRone 5 MG Tab PO SCH ×2 (08:04→21:09)
[2020-08-05] MEDS: DESVENLAFAXINE SUCCINATE PO SCH (08:07)
[2020-08-05] MEDS ORDERED: Digoxin 125 MCG Tab PO SCH (09:00)
[2020-08-05] MEDS ORDERED: Digoxin 125 MCG Tab PO ONE (09:24)
--- NOTE | 2020-08-05 10:17 | PCM.PN ---
- General Info Date of Service: 08/05/20 Admission Dx/Problem (Free Text): Admission Diagnosis/Problem Admission Diagnosis/Problem Atrial fibrillation with rapid ventricular response Subjective Update: Doing fair this morning, having some palpitations and SOB with exertion. Does better with rest. No chest pain. Wanting to see Dr Ann, but he is not available, I will speak with him via telephone when able to today to get recommendations. Functional Status: Reports: Pain Controlled, Tolerating Diet, Ambulating, Urinating - Review of Systems General: Reports: No Symptoms. Denies: Weakness HEENT: Reports: No Symptoms. Denies: Headaches, Sore Throat, Visual Changes Pulmonary: Reports: Shortness of Breath Cardiovascular: Reports: Palpitations, Dyspnea on Exertion. Denies: Chest Pain Gastrointestinal: Reports: No Symptoms. Denies: Abdominal Pain, Nausea, Vomiting Genitourinary: Reports: No Symptoms. Denies: Dysuria, Frequency Musculoskeletal: Reports: No Symptoms Skin: Reports: No Symptoms Neurological: Reports: No Symptoms Psychiatric: Reports: No Symptoms - Patient Data Vitals - Most Recent: Last Vital Signs Temp 98.2 F 08/05/20 04:00 Pulse 87 08/05/20 09:32 Resp 15 08/05/20 09:12 BP 112/77 08/05/20 09:12 Pulse Ox 94 L 08/05/20 09:12 Weight - Most Recent: 91.716 kg I&O - Last 24 Hours: Intake & Output 08/04/20 08/05/20 08/05/20 22:59 06:59 14:59 Intake Total 900 620 Output Total 1200 850 Balance -300 -230 Lab Results Last 24 Hours: Laboratory Results - last 24 hr 08/05/20 08/05/20 Range/Units 05:55 05:55 WBC 5.20 (4.0-11.0) K/uL RBC 4.31 (4.30-5.90) M/uL Hgb 13.1 (12.0-16.0) g/dL Hct 40.2 (36.0-46.0) % MCV 93.3 (80.0-98.0) fL MCH 30.4 (27.0-32.0) pg MCHC 32.6 (31.0-37.0) g/dL RDW Std Deviation 45.7 (28.0-62.0) fl RDW Coeff of Ravi 13 (11.0-15.0) % Plt Count 272 (150-400) K/uL MPV 10.30 (7.40-12.00) fL Neut % (Auto) 44.1 L (48.0-80.0) % Lymph % (Auto) 43.5 H (16.0-40.0) % Tate % (Auto) 8.7 (0.0-15.0) % Eos % (Auto) 2.9 (0.0-7.0) % Baso % (Auto) 0.8 (0.0-1.5) % Neut # (Auto) 2.3 (1.4-5.7) K/uL Lymph # (Auto) 2.3 (0.6-2.4) K/uL Tate # (Auto) 0.5 (0.0-0.8) K/uL Eos # (Auto) 0.2 (0.0-0.7) K/uL Baso # (Auto) 0.0 (0.0-0.1) K/uL Nucleated RBC % 0.0 /100WBC Nucleated RBCs # 0 K/uL Sodium 143 (136-145) mmol/L Potassium 4.0 (3.5-5.1) mmol/L Chloride 108 H (98-107) mmol/L Carbon Dioxide 27.7 (21.0-32.0) mmol/L BUN 22 H (7.0-18.0) mg/dL Creatinine 1.2 H (0.6-1.0) mg/dL Est Cr Clr Drug Dosing 48.35 mL/min Estimated GFR (MDRD) 45.8 ml/min Glucose 98 (74-106) mg/dL Calcium 8.9 (8.5-10.1) mg/dL Magnesium 2.2 (1.8-2.4) mg/dL Med Orders - Current: Current Medications Acetaminophen (Acetaminophen 325 Mg Tab) 650 mg PO Q4H PRN PRN Reason: Pain (Mild 1-3)/fever Albuterol/Ipratropium (Albuterol/Ipratropium 3.0-0.5 Mg/3 Ml Neb Soln) 3 ml NEB Q4HRRT PRN PRN Reason: Shortness Of Breath/wheezing Aripiprazole (Aripiprazole 10 Mg Tab) 15 mg PO DAILY [facility] Last Admin: 08/05/20 08:02 Dose: 15 mg Documented by: Buspirone HCl (Buspirone 5 Mg Tab) 30 mg PO BID [facility] Last Admin: 08/05/20 08:04 Dose: 30 mg Documented by: Digoxin (Digoxin 125 Mcg Tab) 125 mcg PO DAILY [facility] Last Admin: 08/05/20 08:08 Dose: 125 mcg Documented by: Diltiazem HCl (Diltiazem 180 Mg Cap.Cd) 180 mg PO DAILY [facility] Last Admin: 08/05/20 08:02 Dose: 180 mg Documented by: Famotidine (Famotidine 20 Mg Tab) 20 mg PO BID [facility] Last Admin: 08/05/20 08:01 Dose: 20 mg Documented by: Hydroxyzine Pamoate (Hydroxyzine Pamoate 25 Mg Cap) 50 mg PO BEDTIME PRN PRN Reason: Anxiety Last Admin: 08/02/20 23:07 Dose: 50 mg Documented by: Lamotrigine (Lamotrigine 100 Mg Tab) 150 mg PO DAILY [facility] Last Admin: 08/05/20 08:03 Dose: 150 mg Documented by: Lorazepam (Lorazepam 0.5 Mg Tab) 0.5 mg PO DAILY PRN PRN Reason: ANXIETY Last Admin: 08/03/20 19:29 Dose: 0.5 mg Documented by: Montelukast Sodium (Montelukast 10 Mg Tab) 10 mg PO DAILY [facility] Last Admin: 08/05/20 08:04 Dose: 10 mg Documented by: Ondansetron HCl (Ondansetron 4 Mg/2 Ml Sdv) 4 mg IVPUSH Q4H PRN PRN Reason: Nausea/Vomiting Pantoprazole Sodium (Pantoprazole 40 Mg Tab.Cr) 40 mg PO ACBREAKFAST [facility] Last Admin: 08/05/20 07:58 Dose: 40 mg Documented by: Desvenlafaxine Succinate [ Desvenlafaxine Succinate Er] 100 1 each PO DAILY [facility] Last Admin: 08/05/20 08:07 Dose: Not Given Documented by: Rivaroxaban (Rivaroxaban 10 Mg Tab) 20 mg PO DAILY [facility] Last Admin: 08/05/20 08:01 Dose: 20 mg Documented by: Sodium Chloride (Sodium Chloride 0.9% 10 Ml Syringe) 10 ml FLUSH ASDIRECTED PRN PRN Reason: Keep Vein Open Last Admin: 08/02/20 19:18 Dose: 10 ml Documented by: Sodium Chloride (Sodium Chloride 0.9% 2.5 Ml Syringe) 2.5 ml FLUSH ASDIRECTED PRN PRN Reason: Keep Vein Open Last Admin: 08/02/20 19:17 Dose: 2.5 ml Documented by: Temazepam (Temazepam 15 Mg Cap) 15 mg PO DAILY [facility] Last Admin: 08/05/20 08:02 Dose: 15 mg Documented by: Trazodone HCl (Trazodone 50 Mg Tab) 200 mg PO BEDTIME [facility] Last Admin: 08/04/20 21:02 Dose: 200 mg Documented by: Discontinued Medications Digoxin (Digoxin 500 Mcg/2 Ml Amp) 250 mcg IVPUSH Q6H [facility] Stop: 08/04/20 20:46 Last Admin: 08/04/20 21:20 Dose: 250 mcg Documented by: Digoxin (Digoxin 125 Mcg Tab) 125 mcg PO ONETIME ONE Stop: 08/05/20 09:25 Last Admin: 08/05/20 09:32 Dose: 125 mcg Documented by: Diltiazem HCl (Diltiazem 25 Mg/5 Ml Sdv) 20 mg IVPUSH ONETIME ONE Stop: 08/02/20 19:16 Last Admin: 08/02/20 19:29 Dose: 20 mg Documented by: Diltiazem HCl (Diltiazem Ir 60 Mg Tab) 60 mg PO ONETIME ONE Stop: 08/03/20 04:01 Diltiazem HCl (Diltiazem Ir 30 Mg Tab) 30 mg PO Q6HR [facility] Last Admin: 08/03/20 11:46 Dose: 30 mg Documented by: Diltiazem HCl (Diltiazem 180 Mg Cap.Cd) 180 mg PO DAILY [facility] Sodium Chloride (Normal Saline) 1,000 mls @ 999 mls/hr IV .Bolus ONE Stop: 08/02/20 20:13 Last Admin: 08/02/20 19:17 Dose: 999 mls/hr Documented by: Diltiazem HCl 100 mg/ Sodium (Chloride) 100 mls @ 5 mls/hr IV NOW [facility]; Protocol Last Titration: 08/03/20 03:00 Dose: 0 mg/hr, 0 mls/hr Documented by: Lactated Ringer's (Ringers, Lactated) 1,000 mls @ 125 mls/hr IV ASDIRECTED [facility] Last Admin: 08/02/20 23:20 Dose: 125 mls/hr Documented by: Lorazepam (Lorazepam 1 Mg Tab) 1 mg PO ONETIME ONE Stop: 08/04/20 20:01 Last Admin: 08/04/20 21:01 Dose: 1 mg Documented by: Magnesium Oxide (Magnesium Oxide 400 Mg Tab) 800 mg PO ONETIME ONE Stop: 08/03/20 08:31 Last Admin: 08/03/20 08:53 Dose: 800 mg Documented by: Metoprolol Succinate (Metoprolol Succinate 25 Mg Tab.Er) 12.5 mg PO DAILY [facility] Last Admin: 08/03/20 08:49 Dose: 12.5 mg Documented by: Potassium Chloride (Potassium Chloride 10% 20 Meq/15 Ml Soln 30 Ml Ud Cup) 40 meq PO ONETIME ONE Stop: 08/03/20 08:36 Last Admin: 08/03/20 08:53 Dose: 40 meq Documented by: Torsemide (Torsemide 20 Mg Tab) 10 mg PO DAILY [facility] Last Admin: 08/03/20 08:53 Dose: 10 mg Documented by: Torsemide (Torsemide 20 Mg Tab) 10 mg PO ONETIME ONE Stop: 08/04/20 14:42 Last Admin: 08/04/20 15:23 Dose: 10 mg Documented by: Trazodone HCl (Trazodone Hcl 100 Mg Tab) 200 mg PO BEDTIME [facility] - Exam Quality Assessment: DVT Prophylaxis. No: Supplemental Oxygen General: Alert, Oriented, Cooperative Lungs: Clear to Auscultation, Normal Respiratory Effort Cardiovascular: Irregular Rhythm, Tachycardia GI/Abdominal Exam: Normal Bowel Sounds, Soft, Non-Tender Back Exam: Normal Inspection, Full Range of Motion Extremities: Normal Inspection, Normal Range of Motion, Non-Tender, No Pedal Edema Wound/Incisions: Healing Well Neurological: No New Focal Deficit Psy/Mental Status: Alert, Normal Affect, Normal Mood - Patient Data Lab Results Last 24 hrs: Laboratory Results - last 24 hr 08/05/20 08/05/20 Range/Units 05:55 05:55 WBC 5.20 (4.0-11.0) K/uL RBC 4.31 (4.30-5.90) M/uL Hgb 13.1 (12.0-16.0) g/dL Hct 40.2 (36.0-46.0) % MCV 93.3 (80.0-98.0) fL MCH 30.4 (27.0-32.0) pg MCHC 32.6 (31.0-37.0) g/dL RDW Std Deviation 45.7 (28.0-62.0) fl RDW Coeff of Ravi 13 (11.0-15.0) % Plt Count 272 (150-400) K/uL MPV 10.30 (7.40-12.00) fL Neut % (Auto) 44.1 L (48.0-80.0) % Lymph % (Auto) 43.5 H (16.0-40.0) % Tate % (Auto) 8.7 (0.0-15.0) % Eos % (Auto) 2.9 (0.0-7.0) % Baso % (Auto) 0.8 (0.0-1.5) % Neut # (Auto) 2.3 (1.4-5.7) K/uL Lymph # (Auto) 2.3 (0.6-2.4) K/uL Tate # (Auto) 0.5 (0.0-0.8) K/uL Eos # (Auto) 0.2 (0.0-0.7) K/uL Baso # (Auto) 0.0 (0.0-0.1) K/uL Nucleated RBC % 0.0 /100WBC Nucleated RBCs # 0 K/uL Sodium 143 (136-145) mmol/L Potassium 4.0 (3.5-5.1) mmol/L Chloride 108 H (98-107) mmol/L Carbon Dioxide 27.7 (21.0-32.0) mmol/L BUN 22 H (7.0-18.0) mg/dL Creatinine 1.2 H (0.6-1.0) mg/dL Est Cr Clr Drug Dosing 48.35 mL/min Estimated GFR (MDRD) 45.8 ml/min Glucose 98 (74-106) mg/dL Calcium 8.9 (8.5-10.1) mg/dL Magnesium 2.2 (1.8-2.4) mg/dL Result Diagrams: 08/05/20 05:55 08/05/20 05:55 Sepsis Event Note - Evaluation Sepsis Screening Result: No Definite Risk - Focused Exam Vital Signs: Vital Signs Temp Pulse Resp BP Pulse Ox Pulse Ox 08/05/20 09:32 87 08/05/20 09:12 15 112/77 94 L 08/05/20 08:13 16 93/62 98 08/05/20 08:08 135 H 08/05/20 07:00 12 101/69 96 08/05/20 06:00 17 105/71 96 08/05/20 05:00 13 114/68 95 08/05/20 04:00 98.2 F 16 99/66 94 L 08/05/20 03:00 12 89/65 L 94 L 08/05/20 02:00 16 87/58 L 94 L 08/05/20 01:00 14 94/59 L 93 L 08/05/20 00:00 97.7 F 13 94/67 95 08/04/20 23:00 18 92/49 L 95 95 - Problem List & Annotations (1) Atrial fibrillation with rapid ventricular response SNOMED Code(s): 441052325568217 Code(s): I48.91 - UNSPECIFIED ATRIAL FIBRILLATION Status: Acute Current Visit: Yes (2) CKD (chronic kidney disease) SNOMED Code(s): 266667787 Code(s): N18.9 - CHRONIC KIDNEY DISEASE, UNSPECIFIED Status: Chronic Current Visit: Yes (3) Anxiety SNOMED Code(s): 76450891 Code(s): F41.9 - ANXIETY DISORDER, UNSPECIFIED Status: Chronic Current Visit: No - Problem List Review Problem List Initiated/Reviewed/Updated: Yes - My Orders Last 24 Hours: My Active Orders 08/05/20 08:29 Resuscitation Status Routine 08/05/20 08:33 Echo Comp wo Cont [US] Routine 08/05/20 09:00 Digoxin [Lanoxin] 125 mcg PO DAILY - Plan Plan:: 60 y/o F admitted for afib rvr. 1. Afib RVR - Rate control still not achieved. - HR 80s-120s, still having significant symptoms with exertion HR up to 170s. Sustained for 15 minutes after. - Continue Cardizem 360 PO today - Loaded with Digoxin over night, start 250 mcg PO today - Reach out to Dr Gonzalez and discuss options. - Consider Amiodarone if rate control not achieved later, - Unable to start metoprolol with soft BP - Continue Xarelto - Mag and Potassium at desired levels. Monitor daily - Obtain ECHO, last obtained 2015. 2. Anxiety - Continue home medications VTE prophylaxis: Xarelto GI prophylaxis: Protonix CIDE STATUS:Full code Dispo: 2-3 days pending improvement.
[2020-08-05] MEDS ORDERED: Sodium Chloride 0.9% 2.5 ML Syringe FLUSH PRN (10:18)
--- NOTE | 2020-08-05 14:22 | PCM.SN.2 ---
- Free Text/Narrative Note: Spoke with Dr. Ann regarding control difficulties. He recommended starting amiodarone and loading this then transitioning to 200 mg daily p.o. patient was notified and is agreeable with this new medication. She was notified of potential side effects and monitoring down the line.
--- NOTE | 2020-08-05 14:33 | PN ---
[facility] Physician - Brief Progress [id number]/19/2021 13:30[facility] Mervin Marquis, PARAS - GABY (KRISTIN) - CARLOS BIRDDate of Service 08/05/2020 13:30HPI/Events of Note eICU Progress NotePt is a 60 yo F admitted 08/02 with AFib with RVR. AFib was orginially man aged with Diltiazem gtt which was subsequently transitioned to po, but on 08/04 she was started on Dig oxin as well for improved rate control. She remains on daily Digoxin and po Cardizem and is toleratin g it well. Her current HR is in the 80's and she is sitting up in a chair in NAD. She has a 2D Echo i n progress and her Cr is 1.2. Case was discussed with her bedside nurse.eICU recommendations:1) Robinson nue to optimize Digoxin and Cardizem for ideal rate control of < 1102) Monitor Digoxin level with Cr of 1.23) Maintain OAC4) PRN electrolyte replacementThank you for allowing us to participate in the ca re of your patient.Interventions Major-Arrhythmia - evaluation and managementIntermediate-Communicati on with other healthcare providers and/or familyElectronically Signed by: ELIEZER LUX () on 14:32
[2020-08-05] MEDS: traZODone 50 MG Tab PO SCH (21:08)
[2020-08-05] MEDS: LORazepam 0.5 MG Tab PO PRN (21:09)
[2020-08-05] MEDS: hydrOXYzine Pamoate 25 MG Cap PO PRN (21:12)
[2020-08-06 05:22] LABS: CARBON DIOXIDE,CO2 27.4 mmol/L (21.0-32.0); POTASSIUM,K 3.9 mmol/L (3.5-5.1)
[2020-08-06] MEDS: Pantoprazole 40 MG Tab.CR PO SCH (07:25)
[2020-08-06] MEDS ORDERED: Potassium Chloride 20 MEQ Tab.ER PO ONE (07:47)
--- NOTE | 2020-08-06 07:47 | PCM.PN ---
- General Info Date of Service: 08/06/20 Admission Dx/Problem (Free Text): Admission Diagnosis/Problem Admission Diagnosis/Problem Atrial fibrillation with rapid ventricular response Subjective Update: Patient reports he is feeling improved today. Blood pressure has improved. No chest pain. Palpitations have improved significantly but she has still small amounts. Heart rate with ambulation is up to the 110-120s. Feeling better with amiodarone. Functional Status: Reports: Pain Controlled, Ambulating, Urinating - Review of Systems General: Reports: No Symptoms. Denies: Fever, Weakness, Fatigue Pulmonary: Reports: No Symptoms. Denies: Shortness of Breath Cardiovascular: Reports: Palpitations, Dyspnea on Exertion (Much improved). Denies: Chest Pain, Orthopnea Gastrointestinal: Reports: Abdominal Pain. Denies: Nausea, Vomiting Genitourinary: Reports: No Symptoms. Denies: Dysuria, Frequency Musculoskeletal: Reports: No Symptoms Skin: Reports: No Symptoms Neurological: Reports: No Symptoms Psychiatric: Reports: No Symptoms - Patient Data Vitals - Most Recent: Last Vital Signs Temp 97.6 F 08/06/20 07:00 Pulse 87 08/05/20 09:32 Resp 19 08/06/20 07:30 BP 118/63 08/06/20 07:00 Pulse Ox 96 08/06/20 07:30 Weight - Most Recent: 92.17 kg I&O - Last 24 Hours: Intake & Output 08/05/20 08/06/20 08/06/20 22:59 06:59 14:59 Intake Total 1800 781 Output Total 1500 900 Balance 300 -119 Lab Results Last 24 Hours: Laboratory Results - last 24 hr 08/06/20 08/06/20 08/06/20 Range/Units 04:50 04:50 04:50 WBC 5.35 (4.0-11.0) K/uL RBC 4.24 L (4.30-5.90) M/uL Hgb 12.9 (12.0-16.0) g/dL Hct 39.5 (36.0-46.0) % MCV 93.2 (80.0-98.0) fL MCH 30.4 (27.0-32.0) pg MCHC 32.7 (31.0-37.0) g/dL RDW Std Deviation 45.6 (28.0-62.0) fl RDW Coeff of Ravi 14 (11.0-15.0) % Plt Count 233 (150-400) K/uL MPV 9.90 (7.40-12.00) fL Neut % (Auto) 44.6 L (48.0-80.0) % Lymph % (Auto) 43.7 H (16.0-40.0) % Barry % (Auto) 7.5 (0.0-15.0) % Eos % (Auto) 3.6 (0.0-7.0) % Baso % (Auto) 0.6 (0.0-1.5) % Neut # (Auto) 2.4 (1.4-5.7) K/uL Lymph # (Auto) 2.3 (0.6-2.4) K/uL Barry # (Auto) 0.4 (0.0-0.8) K/uL Eos # (Auto) 0.2 (0.0-0.7) K/uL Baso # (Auto) 0.0 (0.0-0.1) K/uL Nucleated RBC % 0.0 /100WBC Nucleated RBCs # 0 K/uL Sodium 140 (136-145) mmol/L Potassium 3.9 (3.5-5.1) mmol/L Chloride 108 H (98-107) mmol/L Carbon Dioxide 27.4 (21.0-32.0) mmol/L BUN 13 (7.0-18.0) mg/dL Creatinine 1.1 H (0.6-1.0) mg/dL Est Cr Clr Drug Dosing 52.75 mL/min Estimated GFR (MDRD) 50.7 ml/min Glucose 103 (74-106) mg/dL Calcium 8.8 (8.5-10.1) mg/dL Magnesium 2.1 (1.8-2.4) mg/dL Total Bilirubin 0.1 L (0.2-1.0) mg/dL AST 20 (15-37) IU/L ALT 29 (14-63) IU/L Alkaline Phosphatase 121 H (46-116) U/L Total Protein 6.5 (6.4-8.2) g/dL Albumin 3.3 L (3.4-5.0) g/dL Globulin 3.2 (2.6-4.0) g/dL Albumin/Globulin Ratio 1.0 (0.9-1.6) Med Orders - Current: Current Medications Acetaminophen (Acetaminophen 325 Mg Tab) 650 mg PO Q4H PRN PRN Reason: Pain (Mild 1-3)/fever Albuterol/Ipratropium (Albuterol/Ipratropium 3.0-0.5 Mg/3 Ml Neb Soln) 3 ml NEB Q4HRRT PRN PRN Reason: Shortness Of Breath/wheezing Aripiprazole (Aripiprazole 10 Mg Tab) 15 mg PO DAILY [facility] Last Admin: 08/05/20 08:02 Dose: 15 mg Documented by: Buspirone HCl (Buspirone 5 Mg Tab) 30 mg PO BID [facility] Last Admin: 08/05/20 21:09 Dose: 30 mg Documented by: Digoxin (Digoxin 125 Mcg Tab) 250 mcg PO DAILY [facility] Diltiazem HCl (Diltiazem 180 Mg Cap.Cd) 180 mg PO DAILY [facility] Last Admin: 08/05/20 08:02 Dose: 180 mg Documented by: Famotidine (Famotidine 20 Mg Tab) 20 mg PO BID [facility] Last Admin: 08/05/20 21:09 Dose: 20 mg Documented by: Hydroxyzine Pamoate (Hydroxyzine Pamoate 25 Mg Cap) 50 mg PO BEDTIME PRN PRN Reason: Anxiety Last Admin: 08/05/20 21:12 Dose: 50 mg Documented by: Amiodarone HCl/Dextrose (Nexterone In Dextrose 360 Mg/200 Ml) 360 mg in 200 mls @ 16.667 mls/hr IV 08/05/20@2045 [facility]; Protocol Last Admin: 08/05/20 21:02 Dose: 0.5 mg/min, 16.667 mls/hr Documented by: Lamotrigine (Lamotrigine 100 Mg Tab) 150 mg PO DAILY [facility] Last Admin: 08/05/20 08:03 Dose: 150 mg Documented by: Lorazepam (Lorazepam 0.5 Mg Tab) 0.5 mg PO DAILY PRN PRN Reason: ANXIETY Last Admin: 08/05/20 21:09 Dose: 0.5 mg Documented by: Montelukast Sodium (Montelukast 10 Mg Tab) 10 mg PO DAILY [facility] Last Admin: 08/05/20 08:04 Dose: 10 mg Documented by: Ondansetron HCl (Ondansetron 4 Mg/2 Ml Sdv) 4 mg IVPUSH Q4H PRN PRN Reason: Nausea/Vomiting Pantoprazole Sodium (Pantoprazole 40 Mg Tab.Cr) 40 mg PO ACBREAKFAST [facility] Last Admin: 08/06/20 07:25 Dose: 40 mg Documented by: Desvenlafaxine Succinate [ Desvenlafaxine Succinate Er] 100 1 each PO DAILY [facility] Last Admin: 08/05/20 08:07 Dose: Not Given Documented by: Rivaroxaban (Rivaroxaban 10 Mg Tab) 20 mg PO DAILY [facility] Last Admin: 08/05/20 08:01 Dose: 20 mg Documented by: Sodium Chloride (Sodium Chloride 0.9% 2.5 Ml Syringe) 2.5 ml FLUSH ASDIRECTED PRN PRN Reason: Keep Vein Open Temazepam (Temazepam 15 Mg Cap) 15 mg PO DAILY [facility] Last Admin: 08/05/20 08:02 Dose: 15 mg Documented by: Trazodone HCl (Trazodone 50 Mg Tab) 200 mg PO BEDTIME [facility] Last Admin: 08/05/20 21:08 Dose: 200 mg Documented by: Discontinued Medications Digoxin (Digoxin 500 Mcg/2 Ml Amp) 250 mcg IVPUSH Q6H [facility] Stop: 08/04/20 20:46 Last Admin: 08/04/20 21:20 Dose: 250 mcg Documented by: Digoxin (Digoxin 125 Mcg Tab) 125 mcg PO DAILY [facility] Last Admin: 08/05/20 08:08 Dose: 125 mcg Documented by: Digoxin (Digoxin 125 Mcg Tab) 125 mcg PO ONETIME ONE Stop: 08/05/20 09:25 Last Admin: 08/05/20 09:32 Dose: 125 mcg Documented by: Diltiazem HCl (Diltiazem 25 Mg/5 Ml Sdv) 20 mg IVPUSH ONETIME ONE Stop: 08/02/20 19:16 Last Admin: 08/02/20 19:29 Dose: 20 mg Documented by: Diltiazem HCl (Diltiazem Ir 60 Mg Tab) 60 mg PO ONETIME ONE Stop: 08/03/20 04:01 Diltiazem HCl (Diltiazem Ir 30 Mg Tab) 30 mg PO Q6HR [facility] Last Admin: 08/03/20 11:46 Dose: 30 mg Documented by: Diltiazem HCl (Diltiazem 180 Mg Cap.Cd) 180 mg PO DAILY [facility] Sodium Chloride (Normal Saline) 1,000 mls @ 999 mls/hr IV .Bolus ONE Stop: 08/02/20 20:13 Last Admin: 08/02/20 19:17 Dose: 999 mls/hr Documented by: Diltiazem HCl 100 mg/ Sodium (Chloride) 100 mls @ 5 mls/hr IV NOW [facility]; Protocol Last Titration: 08/03/20 03:00 Dose: 0 mg/hr, 0 mls/hr Documented by: Lactated Ringer's (Ringers, Lactated) 1,000 mls @ 125 mls/hr IV ASDIRECTED [facility] Last Admin: 08/02/20 23:20 Dose: 125 mls/hr Documented by: Amiodarone HCl/Dextrose (Nexterone In Dextrose 150 Mg/100 Ml) 100 mls @ 600 mls/hr IV ONETIME ONE; Protocol Stop: 08/05/20 14:15 Last Admin: 08/05/20 14:43 Dose: 600 mls/hr Documented by: Amiodarone HCl/Dextrose (Nexterone In Dextrose 360 Mg/200 Ml) 360 mg in 200 mls @ 33.333 mls/hr IV 08/05/20@1445 [facility]; Protocol Stop: 08/05/20 20:44 Last Admin: 08/05/20 15:09 Dose: 1 mg/min, 33.333 mls/hr Documented by: Lorazepam (Lorazepam 1 Mg Tab) 1 mg PO ONETIME ONE Stop: 08/04/20 20:01 Last Admin: 08/04/20 21:01 Dose: 1 mg Documented by: Magnesium Oxide (Magnesium Oxide 400 Mg Tab) 800 mg PO ONETIME ONE Stop: 08/03/20 08:31 Last Admin: 08/03/20 08:53 Dose: 800 mg Documented by: Metoprolol Succinate (Metoprolol Succinate 25 Mg Tab.Er) 12.5 mg PO DAILY [facility] Last Admin: 08/03/20 08:49 Dose: 12.5 mg Documented by: Potassium Chloride (Potassium Chloride 10% 20 Meq/15 Ml Soln 30 Ml Ud Cup) 40 meq PO ONETIME ONE Stop: 08/03/20 08:36 Last Admin: 08/03/20 08:53 Dose: 40 meq Documented by: Sodium Chloride (Sodium Chloride 0.9% 10 Ml Syringe) 10 ml FLUSH ASDIRECTED PRN PRN Reason: Keep Vein Open Last Admin: 08/02/20 19:18 Dose: 10 ml Documented by: Sodium Chloride (Sodium Chloride 0.9% 2.5 Ml Syringe) 2.5 ml FLUSH ASDIRECTED PRN PRN Reason: Keep Vein Open Last Admin: 08/02/20 19:17 Dose: 2.5 ml Documented by: Torsemide (Torsemide 20 Mg Tab) 10 mg PO DAILY [facility] Last Admin: 08/03/20 08:53 Dose: 10 mg Documented by: Torsemide (Torsemide 20 Mg Tab) 10 mg PO ONETIME ONE Stop: 08/04/20 14:42 Last Admin: 08/04/20 15:23 Dose: 10 mg Documented by: Trazodone HCl (Trazodone Hcl 100 Mg Tab) 200 mg PO BEDTIME [place] - Exam Quality Assessment: DVT Prophylaxis. No: Supplemental Oxygen General: Alert, Oriented, Cooperative Lungs: Clear to Auscultation, Normal Respiratory Effort Cardiovascular: Irregular Rhythm, Tachycardia GI/Abdominal Exam: Normal Bowel Sounds, Soft, Non-Tender Extremities: Normal Inspection, Normal Range of Motion, Non-Tender, Pedal Edema (+1 nonpitting) Neurological: No New Focal Deficit Psy/Mental Status: Alert, Normal Affect, Normal Mood - Patient Data Lab Results Last 24 hrs: Laboratory Results - last 24 hr 08/06/20 08/06/20 08/06/20 Range/Units 04:50 04:50 04:50 WBC 5.35 (4.0-11.0) K/uL RBC 4.24 L (4.30-5.90) M/uL Hgb 12.9 (12.0-16.0) g/dL Hct 39.5 (36.0-46.0) % MCV 93.2 (80.0-98.0) fL MCH 30.4 (27.0-32.0) pg MCHC 32.7 (31.0-37.0) g/dL RDW Std Deviation 45.6 (28.0-62.0) fl RDW Coeff of Ravi 14 (11.0-15.0) % Plt Count 233 (150-400) K/uL MPV 9.90 (7.40-12.00) fL Neut % (Auto) 44.6 L (48.0-80.0) % Lymph % (Auto) 43.7 H (16.0-40.0) % Barry % (Auto) 7.5 (0.0-15.0) % Eos % (Auto) 3.6 (0.0-7.0) % Baso % (Auto) 0.6 (0.0-1.5) % Neut # (Auto) 2.4 (1.4-5.7) K/uL Lymph # (Auto) 2.3 (0.6-2.4) K/uL Barry # (Auto) 0.4 (0.0-0.8) K/uL Eos # (Auto) 0.2 (0.0-0.7) K/uL Baso # (Auto) 0.0 (0.0-0.1) K/uL Nucleated RBC % 0.0 /100WBC Nucleated RBCs # 0 K/uL Sodium 140 (136-145) mmol/L Potassium 3.9 (3.5-5.1) mmol/L Chloride 108 H (98-107) mmol/L Carbon Dioxide 27.4 (21.0-32.0) mmol/L BUN 13 (7.0-18.0) mg/dL Creatinine 1.1 H (0.6-1.0) mg/dL Est Cr Clr Drug Dosing 52.75 mL/min Estimated GFR (MDRD) 50.7 ml/min Glucose 103 (74-106) mg/dL Calcium 8.8 (8.5-10.1) mg/dL Magnesium 2.1 (1.8-2.4) mg/dL Total Bilirubin 0.1 L (0.2-1.0) mg/dL AST 20 (15-37) IU/L ALT 29 (14-63) IU/L Alkaline Phosphatase 121 H (46-116) U/L Total Protein 6.5 (6.4-8.2) g/dL Albumin 3.3 L (3.4-5.0) g/dL Globulin 3.2 (2.6-4.0) g/dL Albumin/Globulin Ratio 1.0 (0.9-1.6) Result Diagrams: 08/06/20 04:50 08/06/20 04:50 Sepsis Event Note - Evaluation Sepsis Screening Result: No Definite Risk - Focused Exam Vital Signs: Vital Signs Temp Resp BP Pulse Ox 08/06/20 07:30 19 96 08/06/20 07:00 97.6 F 13 118/63 96 08/06/20 06:00 18 115/58 L 96 08/06/20 05:00 97.8 F 14 111/74 95 08/06/20 04:00 15 102/61 94 L 08/06/20 03:00 12 117/75 92 L 08/06/20 02:00 12 115/75 95 08/06/20 01:00 97.8 F 12 107/87 96 08/06/20 00:00 14 105/75 94 L 08/05/20 23:00 14 100/68 94 L 08/05/20 22:00 18 112/78 94 L 08/05/20 21:00 98 F 15 117/57 L 94 L 08/05/20 20:00 17 107/58 L 95 - Problem List & Annotations (1) Atrial fibrillation with rapid ventricular response SNOMED Code(s): 701119605759487 Code(s): I48.91 - UNSPECIFIED ATRIAL FIBRILLATION Status: Acute Current Visit: Yes (2) CKD (chronic kidney disease) SNOMED Code(s): 349183576 Code(s): N18.9 - CHRONIC KIDNEY DISEASE, UNSPECIFIED Status: Chronic Current Visit: Yes (3) Anxiety SNOMED Code(s): 78858930 Code(s): F41.9 - ANXIETY DISORDER, UNSPECIFIED Status: Chronic Current Visit: No - Problem List Review Problem List Initiated/Reviewed/Updated: Yes - My Orders Last 24 Hours: My Active Orders 08/05/20 08:29 Resuscitation Status Routine 08/05/20 08:33 Echo Comp wo Cont [US] Routine 08/05/20 10:18 Cardiac Monitoring [RC] Q8H Sodium Chloride 0.9% [Saline Flush] 2.5 ml FLUSH ASDIRECTED PRN Saline Lock Insert [OM.PC] Routine 08/05/20 20:45 Amiodarone In Dextrose,Iso-Osm [Nexterone in Dextrose 360 MG/200 ML] 360 mg in 200 ml IV 08/05/20@2045 08/06/20 09:00 Digoxin [Lanoxin] 250 mcg PO DAILY 08/07/20 05:11 BASIC METABOLIC PANEL,BMP [CHEM] AM CBC WITH AUTO DIFF [HEME] AM MAGNESIUM [CHEM] AM 08/08/20 05:11 BASIC METABOLIC PANEL,BMP [CHEM] AM CBC WITH AUTO DIFF [HEME] AM MAGNESIUM [CHEM] AM - Plan Plan:: 60 y/o F admitted for afib rvr. 1. Afib RVR - Rate control still not achieved. - HR 80s-120s, still having significant symptoms with exertion HR up to 170s. Sustained for 15 minutes after. - Continue Cardizem 180 PO today - Continue Digoxin 250 mcg PO today -spoke with Dr. Ann yesterday. Started amiodarone loading IV. Will transition to amiodarone 200 mg p.o. likely this evening - Continue Xarelto - Mag and Potassium at desired levels. Monitor daily -Echo pending 2. Anxiety - Continue home medications VTE prophylaxis: Xarelto GI prophylaxis: Protonix CIDE STATUS:Full code Dispo: possible home tomorrow.
[2020-08-06] MEDS: Famotidine 20 MG Tab PO SCH ×2 (08:32→20:52)
[2020-08-06] MEDS: Temazepam 15 MG Cap PO SCH (08:32)
[2020-08-06] MEDS: Rivaroxaban 10 MG Tab PO SCH (08:33)
[2020-08-06] MEDS: Montelukast 10 MG Tab PO SCH (08:34)
[2020-08-06] MEDS: ARIPiprazole 10 MG Tab PO SCH (08:34)
[2020-08-06] MEDS: Diltiazem 180 MG Cap.CD PO SCH (08:34)
[2020-08-06] MEDS: lamoTRIgine 100 MG Tab PO SCH (08:35)
[2020-08-06] MEDS: busPIRone 5 MG Tab PO SCH ×2 (08:36→20:52)
[2020-08-06] MEDS: DESVENLAFAXINE SUCCINATE PO SCH ×2 (08:39→09:32)
[2020-08-06] MEDS ORDERED: [UNRECOGNIZED DRUG - OTHER] IV ONE (08:45)
[2020-08-06] MEDS ORDERED: AMIODARONE IV ONE (08:45)
[2020-08-06] MEDS ORDERED: DEXTROSE IV ONE (08:45)
[2020-08-06] MEDS ORDERED: Digoxin 125 MCG Tab PO SCH (09:00)
[2020-08-06] MEDS: hydrOXYzine Pamoate 25 MG Cap PO PRN ×2 (09:31→20:51)
[2020-08-06] MEDS ORDERED: Torsemide 20 MG Tab PO SCH (15:30)
[2020-08-06] MEDS: Amiodarone 200 MG Tab PO SCH (18:57)
[2020-08-06] MEDS: LORazepam 0.5 MG Tab PO PRN (20:51)
[2020-08-06] MEDS: traZODone 50 MG Tab PO SCH (20:52)
[2020-08-07 06:11] LABS: CARBON DIOXIDE,CO2 27.5 mmol/L (21.0-32.0)
[2020-08-07] MEDS: Pantoprazole 40 MG Tab.CR PO SCH (08:05)
[2020-08-07] MEDS: Montelukast 10 MG Tab PO SCH (08:05)
[2020-08-07] MEDS: busPIRone 5 MG Tab PO SCH (08:06)
[2020-08-07] MEDS: Diltiazem 180 MG Cap.CD PO SCH (08:07)
[2020-08-07] MEDS: Rivaroxaban 10 MG Tab PO SCH (08:07)
[2020-08-07] MEDS: lamoTRIgine 100 MG Tab PO SCH (08:07)
[2020-08-07] MEDS: Amiodarone 200 MG Tab PO SCH (08:07)
[2020-08-07] MEDS: Famotidine 20 MG Tab PO SCH (08:07)
[2020-08-07] MEDS: ARIPiprazole 10 MG Tab PO SCH (08:08)
[2020-08-07 08:09] VITALS: PULSE 91
[2020-08-07] MEDS: Temazepam 15 MG Cap PO SCH (08:10)
[2020-08-07] MEDS: DESVENLAFAXINE SUCCINATE PO SCH (08:10)
[2020-08-07 08:43] VITALS: BP 109/54
--- NOTE | 2020-08-07 08:55 | PCM.DCSUM1 ---
Discharge Summary - Hospital Course Brief History: This is a 60-year-old female with a Past history significant for atrial fibrillation on Xarelto, HTN, anxiety, remote h/o DVT, CKD presents ER today secondary to palpitations and discomfort in her chest that started approximately 1.5 hours prior to arrival. SHe was concerned she in in Afiv RVR, Patient reports that she is currently on Xarelto as well as metoprolol and is compliant with her meds and has been doing well so far. She was disgnaoes with Afib few years back. Patient denies any recent fevers, shakes, chills, nausea, vomiting, diarrhea, dysuria, frequency, urgency. Patient reports that she did have some shortness of breath and diaphoresis associated with it. Patient reports that she feels palpitations in her chest with some pressure sensation as well. Patient denies any pain rating down her jaw back or throat. She reports rhinorrhea but no cough or congestion. She has been eating and drinking ok. In the ER patient was found to be in Afib RVR om EKG, Troponin was negative, patient was started on Cardizem gtt for rate control and admitted to ICU. Diagnosis: Stroke: No - Discharge Data Discharge Date: 08/07/20 Discharge Disposition: Home, Self-Care 01 Condition: Stable - Referral to Home Health Primary Care Physician: PCP None - Discharge Diagnosis/Problem(s) (1) Atrial fibrillation with rapid ventricular response SNOMED Code(s): 325484653993480 ICD Code: I48.91 - UNSPECIFIED ATRIAL FIBRILLATION Status: Acute Current Visit: Yes (2) CKD (chronic kidney disease) SNOMED Code(s): 448257755 ICD Code: N18.9 - CHRONIC KIDNEY DISEASE, UNSPECIFIED Status: Chronic Current Visit: Yes (3) Anxiety SNOMED Code(s): 99732069 ICD Code: F41.9 - ANXIETY DISORDER, UNSPECIFIED Status: Chronic Current Visit: No - Patient Summary/Data Hospital Course: Admission diagnoses A. fib RVR Discharge diagnoses A. fib RVR Other PMH Anxiety CKD patient was admitted secondary to A. fib RVR with symptoms. She reported shortness of breath and palpitations along with mild chest pain. She is initially started on diltiazem drip and kept on her home diltiazem as well as metoprolol. Blood pressure seem to be soft side with the addition of her metoprolol. Metoprolol was then held. Heart rate was controlled on diltiazem drip but once she was weaned off of this heart rate continue to elevate especially with activity to 170s. She was loaded with digoxin with mild improvement to heart rate. Dr. Gonzalez, her action installer was consulted regarding uncontrolled A. fib heart rate. He suggested loading with amiodarone IV and then transitioning to p.o. amiodarone 200 mg p.o. daily. She was started on amiodarone loading dose. And within a couple hours heart rate was much improved remained A. fib. With activity heart rate does increase to 100-1 10 the patient is less symptomatic and feeling much improved. Blood pressure has improved with heart rate control as well. We will continue to hold metoprolol and continue with diltiazem 180 mg daily and digoxin 125 mcg daily. She will also continue amiodarone 200 mg daily. Today she continues to feel much improved. Yesterday she had complaints of diarrhea but microbiology has no infectious etiology. She feels comfortable being discharged today. She will go home today medications above as well as continuing all her antianxiety medications and Xarelto. She is to monitor her blood pressures and heart rates at home which she does well with normally. Echo obtained during her stay. This revealed left ventricular ejection fraction 60 to 65%, mild eccentric left ventricular hypertrophy, normal right ventricular systolic function, aortic valve is structurally normal and tricuspid, mild mitral valve regurgitation mild to moderate tricuspid valve regurgitation, right ventricular systolic pressure normal at 31.8 and no regional wall abnormalities noted. She will have follow- up with PCP as well as Dr. Gonzalez in the future. Work release given for return to work next Wednesday. She is to return to the ER or clinic if concerns should arise. - Patient Instructions Diet: Heart Healthy Diet Activity: No Strenuous Activities Showering/Bathing: May Shower Notify Provider of: Fever, Increased Pain, Swelling and Redness, Drainage, Nausea and/or Vomiting Other/Special Instructions: Monitor blood pressures and heart rates at home. Contact Dr. Ann if any concerns should arise. - Discharge Plan *PRESCRIPTION DRUG MONITORING PROGRAM REVIEWED*: Not Applicable *COPY OF PRESCRIPTION DRUG MONITORING REPORT IN PATIENT DEYANIRA: Not Applicable Prescriptions/Med Rec: Amiodarone [Cordarone] 200 mg PO DAILY #30 tablet Diltiazem [Dilacor XR] 180 mg PO DAILY #30 cap.er Digoxin [Lanoxin] 125 mcg PO DAILY #30 tablet Home Medications: Home Meds Estazolam 2 mg PO BEDTIME PRN 01/28/16 [History] Pantoprazole [ProTONIX] 40 mg PO ACBREAKFAST 01/28/16 [History] hydrOXYzine pamoate [Hydroxyzine Pamoate] 50 mg PO BID PRN 01/28/16 [History] traZODone 2 tab PO BEDTIME 01/28/16 [History] LORazepam 0.5 mg PO DAILY PRN 08/14/16 [History] Desvenlafaxine Succinate [Desvenlafaxine Succinate ER] 100 mg PO DAILY 07/24/20 [History] Famotidine 20 mg PO BID 07/24/20 [History] Montelukast Sodium 10 mg PO DAILY 07/24/20 [History] Torsemide 10 mg PO DAILY 07/24/20 [History] busPIRone HCl [Buspirone HCl] 30 mg PO BID 07/24/20 [History] lamoTRIgine [Lamotrigine] 150 mg PO DAILY 07/24/20 [History] ARIPiprazole [Abilify] 15 mg PO DAILY 08/02/20 [History] Rivaroxaban [Xarelto] 20 mg PO DAILY 08/02/20 [History] Temazepam [Restoril] 15 mg PO DAILY 08/02/20 [History] Amiodarone [Cordarone] 200 mg PO DAILY #30 tablet 08/07/20 [Rx] Digoxin [Lanoxin] 125 mcg PO DAILY #30 tablet 08/07/20 [Rx] Diltiazem [Dilacor XR] 180 mg PO DAILY #30 cap.er 08/07/20 [Rx] Oxygen Therapy Mode: Room Air Patient Handouts: Chronic Kidney Disease, Adult, Auvq-[id number], Atrial Fibrillation, Krep-yy-Csop Forms: ED Department Discharge Referrals: Aime Gonzalez MD [Physician] - 08/19/20 10:00 am Gloria Sharma PA [Physician [employer]] - 08/13/20 2:45 pm - Discharge Summary/Plan Comment DC Time >30 min.: No - Patient Data Vitals - Most Recent: Last Vital Signs Temp 97.7 F 08/07/20 08:00 Pulse 91 08/07/20 08:06 Resp 16 08/07/20 08:00 BP 109/54 L 08/07/20 08:00 Pulse Ox 95 08/07/20 08:00 Weight - Most Recent: 92.306 kg I&O - Last 24 hours: Intake & Output 08/06/20 08/07/20 08/07/20 22:59 06:59 14:59 Intake Total 1100 1510 Output Total 1200 2700 Balance -100 -1190 Lab Results - Last 24 hrs: Laboratory Results - last 24 hr 08/07/20 08/07/20 Range/Units 05:42 05:42 WBC 4.29 (4.0-11.0) K/uL RBC 4.20 L (4.30-5.90) M/uL Hgb 12.7 (12.0-16.0) g/dL Hct 39.3 (36.0-46.0) % MCV 93.6 (80.0-98.0) fL MCH 30.2 (27.0-32.0) pg MCHC 32.3 (31.0-37.0) g/dL RDW Std Deviation 45.9 (28.0-62.0) fl RDW Coeff of Ravi 13 (11.0-15.0) % Plt Count 243 (150-400) K/uL MPV 10.10 (7.40-12.00) fL Neut % (Auto) 47.8 L (48.0-80.0) % Lymph % (Auto) 39.2 (16.0-40.0) % [place] % (Auto) 7.0 (0.0-15.0) % Eos % (Auto) 5.1 (0.0-7.0) % Baso % (Auto) 0.9 (0.0-1.5) % Neut # (Auto) 2.1 (1.4-5.7) K/uL Lymph # (Auto) 1.7 (0.6-2.4) K/uL [place] # (Auto) 0.3 (0.0-0.8) K/uL Eos # (Auto) 0.2 (0.0-0.7) K/uL Baso # (Auto) 0.0 (0.0-0.1) K/uL Nucleated RBC % 0.0 /100WBC Nucleated RBCs # 0 K/uL Sodium 144 (136-145) mmol/L Potassium 4.0 (3.5-5.1) mmol/L Chloride 107 (98-107) mmol/L Carbon Dioxide 27.5 (21.0-32.0) mmol/L BUN 16 (7.0-18.0) mg/dL Creatinine 1.3 H (0.6-1.0) mg/dL Est Cr Clr Drug Dosing 44.63 mL/min Estimated GFR (MDRD) 41.8 ml/min Glucose 96 (74-106) mg/dL Calcium 8.6 (8.5-10.1) mg/dL Magnesium 2.1 (1.8-2.4) mg/dL [facility] Results - Last 24 hrs: Microbiology 08/06/20 14:30 C. difficile Antigen & Toxins A,B - Final Stool / Feces Med Orders - Current: Current Medications Acetaminophen (Acetaminophen 325 Mg Tab) 650 mg PO Q4H PRN PRN Reason: Pain (Mild 1-3)/fever Albuterol/Ipratropium (Albuterol/Ipratropium 3.0-0.5 Mg/3 Ml Neb Soln) 3 ml NEB Q4HRRT PRN PRN Reason: Shortness Of Breath/wheezing Amiodarone HCl (Amiodarone 200 Mg Tab) 200 mg PO DAILY [facility] Last Admin: 08/07/20 08:07 Dose: 200 mg Documented by: Aripiprazole (Aripiprazole 10 Mg Tab) 15 mg PO DAILY [facility] Last Admin: 08/07/20 08:08 Dose: 15 mg Documented by: Buspirone HCl (Buspirone 5 Mg Tab) 30 mg PO BID [facility] Last Admin: 08/07/20 08:06 Dose: 30 mg Documented by: Digoxin (Digoxin 250 Mcg Tab) 250 mcg PO DAILY [facility] Last Admin: 08/07/20 08:06 Dose: 250 mcg Documented by: Diltiazem HCl (Diltiazem 180 Mg Cap.Cd) 180 mg PO DAILY [facility] Last Admin: 08/07/20 08:07 Dose: 180 mg Documented by: Famotidine (Famotidine 20 Mg Tab) 20 mg PO BID [facility] Last Admin: 08/07/20 08:07 Dose: 20 mg Documented by: Hydroxyzine Pamoate (Hydroxyzine Pamoate 25 Mg Cap) 50 mg PO BID PRN PRN Reason: Anxiety Last Admin: 08/06/20 20:51 Dose: 50 mg Documented by: Lamotrigine (Lamotrigine 100 Mg Tab) 150 mg PO DAILY [facility] Last Admin: 08/07/20 08:07 Dose: 150 mg Documented by: Lorazepam (Lorazepam 0.5 Mg Tab) 0.5 mg PO DAILY PRN PRN Reason: ANXIETY Last Admin: 08/06/20 20:51 Dose: 0.5 mg Documented by: Montelukast Sodium (Montelukast 10 Mg Tab) 10 mg PO DAILY [facility] Last Admin: 08/07/20 08:05 Dose: 10 mg Documented by: Ondansetron HCl (Ondansetron 4 Mg/2 Ml Sdv) 4 mg IVPUSH Q4H PRN PRN Reason: Nausea/Vomiting Pantoprazole Sodium (Pantoprazole 40 Mg Tab.Cr) 40 mg PO ACBREAKFAST [facility] Last Admin: 08/07/20 08:05 Dose: 40 mg Documented by: Desvenlafaxine Succinate [ Desvenlafaxine Succinate Er] 100 1 each PO DAILY [facility] Last Admin: 08/07/20 08:10 Dose: 1 each Documented by: Rivaroxaban (Rivaroxaban 10 Mg Tab) 20 mg PO DAILY [facility] Last Admin: 08/07/20 08:07 Dose: 20 mg Documented by: Sodium Chloride (Sodium Chloride 0.9% 2.5 Ml Syringe) 2.5 ml FLUSH ASDIRECTED PRN PRN Reason: Keep Vein Open Temazepam (Temazepam 15 Mg Cap) 15 mg PO DAILY [facility] Last Admin: 08/07/20 08:10 Dose: Not Given Documented by: Torsemide (Torsemide 20 Mg Tab) 10 mg PO DAILY@1530 [facility] Last Admin: 08/06/20 15:20 Dose: 10 mg Documented by: Trazodone HCl (Trazodone 50 Mg Tab) 200 mg PO BEDTIME [facility] Last Admin: 08/06/20 20:52 Dose: 200 mg Documented by: Discontinued Medications Amiodarone HCl (Amiodarone 200 Mg Tab) 200 mg PO DAILY [facility] Digoxin (Digoxin 500 Mcg/2 Ml Amp) 250 mcg IVPUSH Q6H [facility] Stop: 08/04/20 20:46 Last Admin: 08/04/20 21:20 Dose: 250 mcg Documented by: Digoxin (Digoxin 125 Mcg Tab) 125 mcg PO DAILY [facility] Last Admin: 08/05/20 08:08 Dose: 125 mcg Documented by: Digoxin (Digoxin 125 Mcg Tab) 125 mcg PO ONETIME ONE Stop: 08/05/20 09:25 Last Admin: 08/05/20 09:32 Dose: 125 mcg Documented by: Digoxin (Digoxin 125 Mcg Tab) 250 mcg PO DAILY [facility] Last Admin: 08/06/20 08:31 Dose: 250 mcg Documented by: Diltiazem HCl (Diltiazem 25 Mg/5 Ml Sdv) 20 mg IVPUSH ONETIME ONE Stop: 08/02/20 19:16 Last Admin: 08/02/20 19:29 Dose: 20 mg Documented by: Diltiazem HCl (Diltiazem Ir 60 Mg Tab) 60 mg PO ONETIME ONE Stop: 08/03/20 04:01 Diltiazem HCl (Diltiazem Ir 30 Mg Tab) 30 mg PO Q6HR [facility] Last Admin: 08/03/20 11:46 Dose: 30 mg Documented by: Diltiazem HCl (Diltiazem 180 Mg Cap.Cd) 180 mg PO DAILY [facility] Hydroxyzine Pamoate (Hydroxyzine Pamoate 25 Mg Cap) 50 mg PO BEDTIME PRN PRN Reason: Anxiety Last Admin: 08/05/20 21:12 Dose: 50 mg Documented by: Sodium Chloride (Normal Saline) 1,000 mls @ 999 mls/hr IV .Bolus ONE Stop: 08/02/20 20:13 Last Admin: 08/02/20 19:17 Dose: 999 mls/hr Documented by: Diltiazem HCl 100 mg/ Sodium (Chloride) 100 mls @ 5 mls/hr IV NOW [facility]; Protocol Last Titration: 08/03/20 03:00 Dose: 0 mg/hr, 0 mls/hr Documented by: Lactated Ringer's (Ringers, Lactated) 1,000 mls @ 125 mls/hr IV ASDIRECTED [facility] Last Admin: 08/02/20 23:20 Dose: 125 mls/hr Documented by: Amiodarone HCl/Dextrose (Nexterone In Dextrose 150 Mg/100 Ml) 100 mls @ 600 mls/hr IV ONETIME ONE; Protocol Stop: 08/05/20 14:15 Last Admin: 08/05/20 14:43 Dose: 600 mls/hr Documented by: Amiodarone HCl/Dextrose (Nexterone In Dextrose 360 Mg/200 Ml) 360 mg in 200 mls @ 16.667 mls/hr IV 08/05/20@2045 [facility]; Protocol Last Admin: 08/05/20 21:02 Dose: 0.5 mg/min, 16.667 mls/hr Documented by: Amiodarone HCl/Dextrose (Nexterone In Dextrose 360 Mg/200 Ml) 360 mg in 200 mls @ 33.333 mls/hr IV 08/05/20@1445 [facility]; Protocol Stop: 08/05/20 20:44 Last Admin: 08/05/20 15:09 Dose: 1 mg/min, 33.333 mls/hr Documented by: Amiodarone HCl/Dextrose (Nexterone In Dextrose 360 Mg/200 Ml) 180 mg in 100 mls @ 16.667 mls/hr IV ONETIME ONE; Protocol Stop: 08/06/20 14:44 Last Admin: 08/06/20 08:42 Dose: 0.5 mg/min, 16.667 mls/hr Documented by: Lorazepam (Lorazepam 1 Mg Tab) 1 mg PO ONETIME ONE Stop: 08/04/20 20:01 Last Admin: 08/04/20 21:01 Dose: 1 mg Documented by: Magnesium Oxide (Magnesium Oxide 400 Mg Tab) 800 mg PO ONETIME ONE Stop: 08/03/20 08:31 Last Admin: 08/03/20 08:53 Dose: 800 mg Documented by: Metoprolol Succinate (Metoprolol Succinate 25 Mg Tab.Er) 12.5 mg PO DAILY [facility] Last Admin: 08/03/20 08:49 Dose: 12.5 mg Documented by: Potassium Chloride (Potassium Chloride 10% 20 Meq/15 Ml Soln 30 Ml Ud Cup) 40 meq PO ONETIME ONE Stop: 08/03/20 08:36 Last Admin: 08/03/20 08:53 Dose: 40 meq Documented by: Potassium Chloride (Potassium Chloride 20 Meq Tab.Er) 20 meq PO ONETIME ONE Stop: 08/06/20 07:48 Last Admin: 08/06/20 08:33 Dose: 20 meq Documented by: Sodium Chloride (Sodium Chloride 0.9% 10 Ml Syringe) 10 ml FLUSH ASDIRECTED PRN PRN Reason: Keep Vein Open Last Admin: 08/02/20 19:18 Dose: 10 ml Documented by: Sodium Chloride (Sodium Chloride 0.9% 2.5 Ml Syringe) 2.5 ml FLUSH ASDIRECTED PRN PRN Reason: Keep Vein Open Last Admin: 08/02/20 19:17 Dose: 2.5 ml Documented by: Torsemide (Torsemide 20 Mg Tab) 10 mg PO DAILY [facility] Last Admin: 08/03/20 08:53 Dose: 10 mg Documented by: Torsemide (Torsemide 20 Mg Tab) 10 mg PO ONETIME ONE Stop: 08/04/20 14:42 Last Admin: 08/04/20 15:23 Dose: 10 mg Documented by: Trazodone HCl (Trazodone Hcl 100 Mg Tab) 200 mg PO BEDTIME [facility]
[2020-08-07] MEDS ORDERED: Digoxin 250 MCG Tab PO SCH (09:00)
[2020-08-07] MEDS: hydrOXYzine Pamoate 25 MG Cap PO PRN (09:17)
[2020-08-07] MEDS ORDERED: Amiodarone 200 MG Tab PO SCH (18:00)
--- NOTE | 2020-08-08 15:20 | ECHO ---
EXAM DATE: 08/02/20 PATIENT'S AGE: 60 The ECHO report has been scanned into [employer] and can be seen in this patient's EMR (Electronic Medical Record) under the REPORTS section. The report has also been scanned into PACS. LIT
== END 2020-08-07 11:05 | disposition home or self-care (01) | DRG 310 ==
LOC: MW.ED 19:02 → OBSVTOIN 20:34 → MW.ICU 20:34 → MW.MS 08-06 15:24
PROVIDERS: ADMIT Student in an Organized Health Care Education/Training Program; ATTEND Student in an Organized Health Care Education/Training Program
DX: I48.91 Unspecified atrial fibrillation (principal); F41.9 Anxiety disorder, unspecified; I12.9 Hypertensive chronic kidney disease with stage 1 through stage 4 chronic kidney disease, or unspecified chronic kidney disease; K21.9 Gastro-esophageal reflux disease without esophagitis; N18.30 Chronic kidney disease, stage 3 unspecified; M19.90 Unspecified osteoarthritis, unspecified site; F31.9 Bipolar disorder, unspecified; D64.9 Anemia, unspecified; B95.62 Methicillin resistant Staphylococcus aureus infection as the cause of diseases classified elsewhere; Z96.643 Presence of artificial hip joint, bilateral; Z20.822 Contact with and (suspected) exposure to COVID-19; E66.9 Obesity, unspecified; Z86.718 Personal history of other venous thrombosis and embolism; Z79.01 Long term (current) use of anticoagulants; Z79.899 Other long term (current) drug therapy; Z88.5 Allergy status to narcotic agent; Z79.82 Long term (current) use of aspirin; I25.2 Old myocardial infarction; Z86.73 Personal history of transient ischemic attack (TIA), and cerebral infarction without residual deficits; E86.0 Dehydration; Z68.31 Body mass index [BMI] 31.0-31.9, adult
CPT/HCPCS: 36415; 71045; 71045-26; 80048; 80053; 81003; 83735; 83880; 84100; 84443; 84484; 85025; 85379; 85610; 87045; 87046; 87324; 87449; 87899; 93005; 93306; 99221; 99231; 99232; 99238; A9270-GY; J0282; J1160; J3490; J7030; J7120; U0002

== ENCOUNTER 2020-12-01 12:48 | Emergency (ER) | payer BC, OTHER ==
[2020-12-01] MEDS ORDERED: Acetaminophen/HYDROcodone 325-5 MG Tab PO ONE (13:47)
--- NOTE | 2020-12-01 14:07 | CR ---
Indication: Left hip dislocation. Technique: AP view of the pelvis and two views of the left hip. Comparison: September 28, 2019. Findings: Postoperative change bilateral hip arthroplasty are identified. No fracture subluxation is identified. There is no evidence of hardware failure. Impression: Bilateral hip arthroplasty Dictated by Billie Feng MD @ 12/01/2020 2:06:[address] Billie Feng @ Dec 01 2020 2:06PM
--- NOTE | 2020-12-01 15:02 | EDM.PDOC ---
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 The patient states that she is experiencing left hip pain that has been going on for the last couple of days. She states it feels like the time when the hardware in her right hip had dislodged from her femur. She describes the pain as throbbing located in her right hip which radiates down to her knee. She denies any numbness, tingling, weakness. She said that she is able to bear weight. She does not think it is dislocated but feels like the hardware is dislodged. She states the pain is exacerbated by movement and there are no relieving factors. She is not yet tried any pain medication. She denies any other symptoms REVIEW OF SYSTEMS: Constitutional: Denies fever, chills. Eyes: Denies eye pain Ears, Nose, Mouth, & Throat: Denies earache Cardiovascular: Denies chest pain Respiratory: Denies shortness of breath Gastrointestinal: Denies Nausea, vomiting, diarrhea, hematochezia. Genitourinary: Denies hematuria Skin:Denies a rash MSK: Positive for left hip pain and knee pain Neurological: Denies blurred vision Psychiatric: Denies depression PAST MEDICAL HISTORY: As per history of present illness and as reviewed below otherwise noncontributory. SURGICAL HISTORY: As per history of present illness and as reviewed below otherwise noncontributory. SOCIAL HISTORY: As per history of present illness and as reviewed below otherwise noncontributory. FAMILY HISTORY: As per history of present illness and as reviewed below otherwise noncontributory. EXAMINATION OF ORGAN SYSTEMS/BODY AREAS: Constitutional: Blood pressure was 147/87, heart rate 64, respiratory rate 18 with an oxygen saturation of 96% on room air temperature 36.0 General: Middle-aged woman who is in no acute distress Psychiatric: Appropriate mood and affect. Eyes: No scleral icterus or conjunctival erythema ENMT: Moist mucous membranes. No pharyngeal erythema Cardiovascular: Regular, rate, and rhythm. No gallops, murmurs, or rubs. Bilateral upper extremity pulses symmetric and intact. No peripheral edema. No JVD. Respiratory: Lungs clear to auscultation bilaterally. No wheezes, rales, or rhonchi. Gastrointestinal: Soft, non-tender, non-distended. Normoactive bowel sounds Genitourinary: No suprapubic tenderness Musculoskeletal: There is no obvious limb length discrepancy. No external rotation of the left hip. There is tenderness to palpation along the left hip all the way down to the knee. No overlying skin changes. The patient is able to flex and extend at the hip. Skin: No lesions or abrasions. Neurological: Alert, GCS 15 MEDICAL DECISION MAKING AND COURSE IN THE ED WITH INTERPRETATION/REVIEW OF DIAGNOSTIC STUDIES: This is a 60-year-old woman with a past medical history of bilateral hip replacement secondary to congenital hip abnormality who presents to the emergency department with left hip pain and is concerned about possible hardware dislodgment. At this time we will provide the patient with [place] by mouth and obtain a hip with pelvic x-ray. I do not believe any further work-up is indicated. The radiological images were viewed by myself along with reading the report from the radiologist. Left hip x-ray with pelvis does not reveal any fractures or dislocations. There is no evidence of hardware failure. After imaging I discussed the results with the patient. I discussed that I recommend that she is is Tylenol Motrin for pain relief. She is to follow-up with her primary care physician for reevaluation. She is to return for any new or worsening symptoms. She was amenable discharge and had no further questions. DISPOSITION: Patient discharged home in stable condition patient will follow up with her primary care physician CONDITION: Fair PROCEDURES: None FINAL IMPRESSION(S)/DIAGNOSES: 1. Acute left hip pain Gato [place] M.D. Left Hip Pain Score (Numeric/FACES): 10 - Related Data Allergies Allergy/AdvReac Type Severity Reaction Status Date / Time morphine Allergy Itching Verified 12/01/20 13:08 Home Meds: Home Meds Estazolam 2 mg PO BEDTIME PRN 01/28/16 [History] Pantoprazole [ProTONIX] 40 mg PO ACBREAKFAST 01/28/16 [History] hydrOXYzine pamoate [Hydroxyzine Pamoate] 50 mg PO BID PRN 01/28/16 [History] traZODone 2 tab PO BEDTIME 01/28/16 [History] LORazepam 0.5 mg PO DAILY PRN 08/14/16 [History] Desvenlafaxine Succinate [Desvenlafaxine Succinate ER] 100 mg PO DAILY 07/24/20 [History] Famotidine 20 mg PO BID 07/24/20 [History] Montelukast Sodium 10 mg PO DAILY 07/24/20 [History] Torsemide 10 mg PO DAILY 07/24/20 [History] busPIRone HCl [Buspirone HCl] 30 mg PO BID 07/24/20 [History] lamoTRIgine [Lamotrigine] 150 mg PO DAILY 07/24/20 [History] ARIPiprazole [Abilify] 15 mg PO DAILY 08/02/20 [History] Rivaroxaban [Xarelto] 20 mg PO DAILY 08/02/20 [History] Temazepam [Restoril] 15 mg PO DAILY 08/02/20 [History] Amiodarone [Cordarone] 200 mg PO DAILY #30 tablet 08/07/20 [Rx] Digoxin [Lanoxin] 125 mcg PO DAILY #30 tablet 08/07/20 [Rx] Diltiazem [Dilacor XR] 180 mg PO DAILY #30 cap.er 08/07/20 [Rx] methocarbamoL [Methocarbamol] 1,500 mg PO TID #42 tablet 12/01/20 [Rx] Past Medical History HEENT History: Reports: None Cardiovascular History: Reports: Afib, Blood Clots/VTE/DVT, Hypertension Other Cardiovascular History: hx DVT-left leg Respiratory History: Reports: None Gastrointestinal History: Reports: GERD Genitourinary History: Reports: Other (See Below) Other Genitourinary History: stage III CKD 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 Musculoskeletal History: Reports: Arthritis, Fracture Neurological History: Reports: None Psychiatric History: Reports: Anxiety, Bipolar, Depression Endocrine/Metabolic History: Reports: Obesity/BMI 30+ Hematologic History: Reports: Anemia Immunologic History: Reports: Other (See Below) Other Immunologic History: hx MRSA Oncologic (Cancer) History: Reports: None Dermatologic History: Reports: None - Infectious Disease History Infectious Disease History: Reports: MRSA - Past Surgical History Head Surgeries/Procedures: Reports: None HEENT Surgical History: Reports: None Cardiovascular Surgical History: Reports: None Respiratory Surgical History: Reports: None GI Surgical History: Reports: Bariatric Procedure, Colonoscopy Female Surgical History: Reports: None Endocrine Surgical History: Reports: None Neurological Surgical History: Reports: None Musculoskeletal Surgical History: Reports: Hip Replacement, ORIF Other Musculoskeletal Surgeries/Procedures:: hip replacement, right x 3 and left x 1, ORIF right fx femur Oncologic Surgical History: Reports: None Dermatological Surgical History: Reports: None Social & Family History - Family History Family Medical History: No Pertinent Family History Cardiac: Reports: Heart Failure, High Cholesterol, Hypertension, [place] Musculoskeletal: Reports: Arthritis, Osteoarthritis Endocrine/Metabolic: Reports: Diabetes, type II - Tobacco Use Tobacco Use Status *Q: Never Tobacco User - Caffeine Use Caffeine Use: Reports: None Caffeine Use Comment: 2cups/day - Recreational Drug Use Recreational Drug Use: No Review of Systems - Review of Systems Review Of Systems: See Below ED EXAM, GENERAL - Physical Exam Exam: See Below Course - Vital Signs Last Recorded V/S: Last Vital Signs Temp 36.7 C 12/01/20 15:13 Pulse 62 12/01/20 15:13 Resp 18 12/01/20 15:13 BP 132/67 12/01/20 15:13 Pulse Ox 97 12/01/20 15:13 - Orders/Labs/Meds Meds: Medications Discontinued Medications Generic Name Dose Route Start Last Admin Trade Name Annetta PRN Reason Stop Dose Admin Hydrocodone Bitart/Acetaminophen 1 tab 12/01/20 13:47 12/01/20 13:56 Acetaminophen/Hydrocodone 325-5 Mg Tab PO 12/01/20 13:48 1 tab ONETIME ONE Administration Departure - Departure Time of Disposition: 15:01 Disposition: Home, Self-Care 01 Condition: Fair Clinical Impression: Hip pain - Discharge Information *PRESCRIPTION DRUG MONITORING PROGRAM REVIEWED*: No *COPY OF PRESCRIPTION DRUG MONITORING REPORT IN PATIENT DEYANIRA: No Prescriptions: methocarbamoL [Methocarbamol] 1,500 mg PO TID #42 tablet Instructions: Hip Pain, Muscle Strain, [id number] Referrals: Gloria Sharma PA [Primary Care Provider] - Forms: ED Department Discharge Additional Instructions: You were evaluated today on an emergent basis. At this time there was no evidence of any abnormality of your hardware in your left hip. Given that you able to ambulate and you have no risk factors for infection I do believe this is secondary to muscle strain, spasm. I do recommend that you alternate heat with ice 20 minutes 4 times a day and use Tylenol for pain relief. I did discuss that I could provide you with a muscle relaxer which can be used 3 times a day. I recommend you trial this for the next 2 days and then reevaluate the need. I would call your orthopedic surgeon tomorrow and schedule a follow-up appointment. If you have any worsening symptoms you are welcome to return to the emergency department. [facility] - Primary Care [address] [place] [id number] [address] [id number] The patient is informed of any results of their evaluation and diagnostic workup and all questions are answered. They are given discharge instructions and return precautions. The patient is stable for discharge. The patient states they understand and agree with the plan and that they will return if their symptoms get worse or if they have any new concerns. The following information is given to patients seen in the emergency department who are being discharged to home. This information is to outline your options for follow-up care. We provide all patients seen in our emergency department with a follow-up referral. The need for follow-up, as well as the timing and circumstances, are variable depending upon the specifics of your emergency department visit. If you don't have a primary care physician on staff, we will provide you with a referral. We always advise you to contact your personal physician following an emergency department visit to inform them of the circumstance of the visit and for follow-up with them and/or the need for any referrals to a consulting specialist. The emergency department will also refer you to a specialist when appropriate. This referral assures that you have the opportunity for follow-up care with a specialist. All of these measure are taken in an effort to provide you with optimal care, which includes your follow-up. Under all circumstances we always encourage you to contact your private physician who remains a resource for coordinating your care. When calling for follow-up care, please make the office aware that this follow-up is from your recent emergency room visit. If for any reason you are refused follow-up, please contact the [facility] Emergency Department at and asked to speak to the emergency department charge nurse. Sepsis Event Note (ED) - Evaluation Sepsis Screening Result: No Definite Risk
[2020-12-01 15:14] VITALS: BP 132/67; PULSE 62
== END 2020-12-01 15:17 | disposition home or self-care (01) ==
LOC: MW.ED 12:48
DX: M25.552 Pain in left hip (principal); I12.9 Hypertensive chronic kidney disease with stage 1 through stage 4 chronic kidney disease, or unspecified chronic kidney disease; N18.30 Chronic kidney disease, stage 3 unspecified; K21.9 Gastro-esophageal reflux disease without esophagitis; E66.9 Obesity, unspecified; I48.91 Unspecified atrial fibrillation; Z86.718 Personal history of other venous thrombosis and embolism; Z68.31 Body mass index [BMI] 31.0-31.9, adult; Z79.01 Long term (current) use of anticoagulants; Z79.899 Other long term (current) drug therapy; Z88.5 Allergy status to narcotic agent
CPT/HCPCS: 73502; 99283; A9270